=== PATIENT | male | born 1960 | race Caucasian/White ===

== ENCOUNTER 2018-10-15 15:27 | Emergency (ER) | payer OTHER, SELFPAY ==
[2018-10-15 15:29] VITALS: BP 186/106; PULSE 79; RESP 20; TEMP 37.1; O2SAT 98
--- NOTE | 2018-10-15 15:37 | DI.RAD.S_ITS ---
PROCEDURE: XR CHEST 1V INDICATIONS: chest pain TECHNIQUE: One view of the chest was acquired. COMPARISON: [facility], , CHEST 2 VIEW, 12/28/2013, 6:33. FINDINGS: Surgical changes and devices: None. Lungs and pleura: Lungs are clear. No pleural effusions or pneumothorax. Mediastinum: Mediastinal contours appear normal. Heart size is normal. Bones and chest wall: No suspicious bony lesions. Overlying soft tissues appear unremarkable. IMPRESSION: 1. No acute cardiopulmonary disease. Dictated by: Dannie Mejias M.D. on 10/15/2018 at 15:59 Approved by: Dannie Mejias M.D. on 10/15/2018 at 16:01
[2018-10-15 16:09] VITALS: BP 169/107; PULSE 71; RESP 18; O2SAT 98
[2018-10-15 16:09] LABS: Add Manual Diff / Slide Review NO; Basophils Absolute Auto 0 /uL (0-100); Basophils Percent Auto 0.7 % (0-2); Eosinophils Absolute Auto 100 /uL (0-450); Hemoglobin 15.8 g/dL (13.5-17.5); Lymphocytes Absolute Auto 1200 /uL (1100-4500); Lymphocytes Percent Auto 21.3 % (25-40); Mean Corpuscular HGB Conc 35.1 % (30-36); Mean Corpuscular Hemoglobin 31.9 PG (26-34); Mean Corpuscular Volume 90.9 fL (80-100); Monocytes Absolute Auto 500 /uL (0-900); Neutrophils Absolute Auto 3600 /uL (1500-7000); Platelet Count 180 X10^3/uL (150-400); Red Blood Cell Count 4.95 X10^6/uL (4.5-5.9); White Blood Cell Count 5.4 X10^3/uL (4.5-11.0)
[2018-10-15 16:16] LABS: Prothrombin Time 11.6 SECONDS (10.1-12.7)
[2018-10-15 16:18] LABS: PTT Partial Thromboplastin Tim 37 SECONDS (26.4-36.2)
[2018-10-15 16:23] LABS: Alanine Aminotransferase 66 IU/L (21-72); Albumin 4.9 g/dL (3.5-5.0); Albumin Globulin Ratio 1.5 (1.0-2.8); Alkaline Phosphatase 51 U/L (38-126); Aspartate Aminotransferase 60 IU/L (17-59); BUN Creatinine Ratio 11.7 (6-22); Blood Urea Nitrogen 7 mg/dL (9-20); Carbon Dioxide 29 mmol/L (22-32); Chloride 101 mmol/L (98-107); Creatine Kinase 151 U/L (55-170); Estimated Glomerular Filt Rate > 60.0 mL/min (>60); Globulin 3.3 g/dL (1.7-4.1); Glucose 118 mg/dL (80-110); HEMOLYSIS 30 (0-50); Lipase 81 U/L (23-300); Potassium 3.4 mmol/L (3.4-5.1); Sodium 140 mmol/L (137-145); Total Protein 8.2 g/dL (6.3-8.2)
[2018-10-15 16:35] LABS: Troponin I < 0.012 ng/mL (0.01-0.034)
[2018-10-15 16:39] LABS: CKMB % Relative Index 1.1 % (1.5-5.0); Creatine Kinase MB 1.69 ng/mL (<2.37)
[2018-10-15 17:00] VITALS: BP 167/97; PULSE 75; RESP 12; O2SAT 95
--- NOTE | 2018-10-15 17:02 | ED_ITS ---
HPI - General Adult General Chief complaint: Hypertension Stated complaint: sent by [facility] blood pressure crisis Time Seen by Provider: 10/15/18 15:37 Source: patient Mode of arrival: ambulatory Limitations: no limitations History of Present Illness HPI narrative: Patient is 58-year-old gentleman with history of hypertension has been out of his blood pressure medication for the last 40 days. He states he ov rupertoll has not been feeling well he gets sweaty at times. He sometimes feels slightly dizzy. He has not passed out. No numbness tingling weakness or focal deficits. He denies chest pain or shortness of breath or shortness of breath with exertion. He overall just does not feel right. Related Data Home Medications Medication Instructions Recorded Confirmed lisinopril-hydrochlorothiazide 1 tab PO DAILY 10/15/18 10/15/18 Previous Rx's Medication Instructions Recorded lisinopril-hydrochlorothiazide 1 tab PO DAILY #60 tab 10/15/18 Allergies Allergy/AdvReac Type Severity Reaction Status Date / Time No Known Drug Allergies Allergy Verified 10/15/18 15:32 Review of Systems Review of Systems ROS Unobtainable: All systems reviewed & are unremarkable except as noted in HPI and below Constitutional Denies chills, Denies fever(s), Denies lethargy and Denies weakness Eyes Denies change in vision, Denies eye discharge, Denies irritation and Denies loss of vision ENT Ears, Nose, Mouth, and Throat: Denies change in voice, Denies neck pain and Denies sore throat Cardiovascular Denies chest pain, Reports lightheadedness and Denies dyspnea Respiratory Denies dyspnea Musculoskeletal Denies neck pain Integumentary/Breasts Denies pruritus, Denies erythema, Denies rash and Denies wounds Neurologic Denies loss of vision and Denies weakness [facility] Medical History Hypertension (Acute) Exam Initial Vital Signs Initial Vital Signs: Vital Signs Temperature 98.7 F 10/15/18 15:29 Pulse Rate 79 10/15/18 15:29 Respiratory Rate 20 10/15/18 15:29 Blood Pressure 186/106 H 10/15/18 15:29 Pulse Oximetry 98 10/15/18 15:29 GENERAL: Well-appearing, well-nourished and in no acute distress. HEENT: Head atraumatic,EOMI, pupils reactive, face symmetric, moist mucous membranes CARDIOVASCULAR: Regular rate and rhythm without murmurs, rubs or gallops. RESPIRATORY: Breath sounds equal bilaterally, no wheezes rales or rhonchi. ABDOMEN: Soft, nontender. Normoactive bowel sounds all 4 quadrants. No guarding or rebound. EXTREMITIES: Normal range of motion, no clubbing or edema. Neurovascularly intact NEUROLOGICAL: Alert and oriented x4.Normal gait and speech. Cranial nerves II t hrough XII grossly intact. Apprentice Instrument Technician strength equal bilaterally SKIN: Warm, dry, no laceration, no petechiae, no rashes or lesions. Scores NIH Stroke Scale Level of Conciousness: Alert, keenly responsive Ask month/age: Answers both questions correctly. Open/close eyes, close hand: Performs both tasks correctly Best gaze horizontal: Normal Visual gayle: No visual loss Facial palsy: Normal symetrical movement Left arm drift: No drift for full 10 sec Right arm drift: No drift for full 10 sec Left leg drift: No drift for full 10 sec Right leg drift: No drift for full 10 sec Limb ataxia: Absent Sensory on face/arms/legs: Normal, no sensory loss Best language: No aphasia, normal Dysarthria: Normal Extinction or inattention: No abnormality Total NIH Stroke scale score: 0 Course Orders Ordered: ED Orders 10/15/18 15:37 XR chest 1V Stat 10/15/18 15:39 EKG-12 Lead Stat 10/15/18 16:00 Complete Blood Count AUTO DIFF Stat Comprehensive Metabolic Panel Stat Lipase Stat Partial Thromboplastin Time Stat Prothrombin Time INR Stat Troponin & CK Cardiac Panel Stat Vital Signs - 8 hr 10/15/18 15:29 10/15/18 16:09 10/15/18 17:00 Temperature 98.7 F Pulse Rate 79 71 75 Respiratory Rate 20 18 12 Blood Pressure 186/106 H Blood Pressure [Right Arm] 169/107 H 167/97 H Pulse Oximetry 98 98 95 Medical Decision Making Lab Data Lab results reviewed: Yes I reviewed the patient's lab results. Result diagrams: 10/15/18 16:00 10/15/18 16:00 Lab Results 10/15/18 10/15/18 10/15/18 Range/Units 16:00 16:00 16:00 WBC 5.4 (4.5-11.0) X10^3/uL RBC 4.95 (4.5-5.9) X10^6/uL Hgb 15.8 (13.5-17.5) g/dL Hct 45.0 (41-53) % MCV 90.9 (80-100) fL MCH 31.9 (26-34) PG MCHC 35.1 (30-36) % RDW 13.0 (11.6-14.8) % Plt Count 180 (150-400) X10^3/uL Neut % (Auto) 67.0 (50-75) % Lymph % (Auto) 21.3 L (25-40) % [place] % (Auto) 10.0 (3-14) % Eos % (Auto) 1.0 L (2-4) % Baso % (Auto) 0.7 (0-2) % Neut # (Auto) 3600 (7751-6893) /uL Lymph # (Auto) 1200 (9248-1316) /uL [place] # (Auto) 500 (0-900) /uL Eos # (Auto) 100 (0-450) /uL Baso # (Auto) 0 (0-100) /uL PT 11.6 (10.1-12.7) SECONDS INR 1.0 (0.9-1.3) APTT 37 H (26.4-36.2) SECONDS Sodium 140 (137-145) mmol/L Potassium 3.4 (3.4-5.1) mmol/L Chloride 101 (98-107) mmol/L Carbon Dioxide 29 (22-32) mmol/L BUN 7 L (9-20) mg/dL Creatinine 0.60 L (0.66-1.25) mg/dL Estimated GFR > 60.0 (>60) mL/min BUN/Creatinine Ratio 11.7 (6-22) Glucose 118 H (80-110) mg/dL Calcium 10.0 (8.4-10.2) mg/dL Total Bilirubin 1.0 (0.2-1.3) mg/dL AST 60 H (17-59) IU/L ALT 66 (21-72) IU/L Alkaline Phosphatase 51 (38-126) U/L Total Creatine Kinase 151 (55-170) U/L CK-MB (CK-2) 1.69 (<2.37) ng/mL CK-MB (CK-2) Rel Index 1.1 L (1.5-5.0) % Troponin I < 0.012 (0.01-0.034) ng/mL Total Protein 8.2 (6.3-8.2) g/dL Albumin 4.9 (3.5-5.0) g/dL Globulin 3.3 (1.7-4.1) g/dL Albumin/Globulin Ratio 1.5 (1.0-2.8) Lipase 81 (23-300) U/L Imaging Data Chest x-ray: Radiologist's impression: PROCEDURE: XR CHEST 1V INDICATIONS: chest pain TECHNIQUE: One view of the chest was acquired. COMPARISON: [facility], , CHEST 2 VIEW, 12/28/2013, 6:33. FINDINGS: Surgical changes and devices: None. Lungs and pleura: Lungs are clear. No pleural effusions or pneumothorax. Mediastinum: Mediastinal contours appear normal. Heart size is normal. Bones and chest wall: No suspicious bony lesions. Overlying soft tissues appear unremarkable. IMPRESSION: 1. No acute cardiopulmonary disease. Dictated by: Dannie Mejias M.D. on 10/15/2018 at 15:59 ECG Data Attestation: I personally reviewed and interpreted this ECG as follows: Prior ECG tracings: not available for review Interpretation: Normal sinus rhythm rate 76 p.r[address] interval [address] changes no T-wave inversions no priors to compare Q-wave noted in lead 3 nonpathologic MDM Narrative Medical decision making narrative: Patient blood pressure has decreased without any intervention. He likely just needs to be placed back on his regular blood pressure meds. He says he is having trouble getting into a PCP. He is given information to help get into a PCP. I have agreed to write him for 2 months of blood pressure medication with the understanding that he needs to make phone felix ls. He is also requesting tomorrow off work. Discharge Plan Departure Patient Disposition: Home Clinical Impression: Hypertension Qualifiers: Hypertension type: essential hypertension Qualified Code(s): I10 - Essential (primary) hypertension Discharge Date/Time: 10/15/18 17:19 Interventions: ED Discharge Assessment Last Done: 10/15/18 17:19 Instructions: DI for High Blood Pressure Activity Restrictions/Additional Instructions: *You have been diagnosed with hypertension *What to do: You need to take her blood pressure medication *Continue to take medications as directed 1 pill once daily hydrochlorothiazide and lisinopril *Follow up with your primary care provider in 2-3 days *Return to ER if you should have chest pain shortness of breath dizziness lightheadedness weakness or any new, worsening or concerning symptoms Prescriptions: New lisinopril-hydrochlorothiazide 20-25 mg tablet 1 tab PO DAILY Qty: 60 RF: 0 No Action lisinopril-hydrochlorothiazide 20-25 mg Tablet 1 tab PO DAILY RF: 0 Stand Alone Forms: Work Release Note
== END 2018-10-15 17:19 | disposition home or self-care (01) ==
PROVIDERS: Nurse Practitioner Family; Emergency Provider Emergency Medicine
DX: I10 Essential (primary) hypertension (principal); R07.9 Chest pain, unspecified
CPT/HCPCS: 36591; 71045; 80053; 82550; 82553; 83690; 84484; 85025; 85610; 85730; 93005; 99283; 99285

== ENCOUNTER → 2019-03-04 09:51 | Outpatient (CLI) | payer OTHER, SELFPAY ==
[2019-03-04 10:40] LABS: Hemoglobin 16.3 g/dL (13.5-17.5); Mean Corpuscular HGB Conc 35.5 % (30-36); Mean Corpuscular Hemoglobin 32.6 PG (26-34); Platelet Count 214 X10^3/uL (150-400); Red Blood Cell Count 5.01 X10^6/uL (4.5-5.9); Red Cell Distribution Width 13.3 % (11.6-14.8); White Blood Cell Count 6.5 X10^3/uL (4.5-11.0)
[2019-03-04 10:44] LABS: Appearance Urine UA CLEAR; Bilirubin Urine UA NEGATIVE (NEGATIVE); Color Urine UA YELLOW; Glucose Urine UA NEGATIVE (Negative); Ketones Urine UA TRACE (NEGATIVE); Leukocyte Esterase Urine UA NEGATIVE (NEGATIVE); Nitrite Urine UA NEGATIVE (Negative); Occult Blood Urine UA NEGATIVE (Negative); Protein Urine UA 1+ (Negative); Urobilinogen Urine UA 0.2 E.U./dL (0.2)
[2019-03-04 11:13] LABS: Alanine Aminotransferase 178 IU/L (<50); Albumin 5.4 g/dL (3.5-5.0); Albumin Globulin Ratio 1.8 (1.0-2.8); Alkaline Phosphatase 56 U/L (38-126); Aspartate Aminotransferase 146 IU/L (17-59); Bilirubin Total 0.8 mg/dL (0.2-1.3); Blood Urea Nitrogen 7 mg/dL (9-20); Calcium 10.6 mg/dL (8.4-10.2); Carbon Dioxide 30 mmol/L (22-32); Chloride 98 mmol/L (98-107); Estimated Glomerular Filt Rate > 60.0 mL/min (>60); Glucose 118 mg/dL (80-110); HDL Cholesterol 74 mg/dL (40-60); HEMOLYSIS < 15 (0-50); Potassium 3.9 mmol/L (3.4-5.1); Sodium 141 mmol/L (137-145); Total Protein 8.4 g/dL (6.3-8.2); Triglycerides 279 mg/dL (35-150)
[2019-03-04 11:21] LABS: LDL Cholesterol Calculated 241 mg/dL (<100)
[2019-03-04 11:22] LABS: Cholesterol 371 mg/dL (140-199)
[2019-03-04 11:25] LABS: Bacteria Urine Occasional (0-1); Hyaline Casts Urine 5-10/LPF; Mucus Urine 1+ (Negative); RBC Urine 0-1/HPF (0-5/HPF); WBC Urine 0-1/HPF (0-5/HPF)
[2019-03-04 11:36] LABS: Creatinine Urine Random 204.4 mg/dL
[2019-03-04 11:40] LABS: Prostate Specific Antigen Scrn 1.08 ng/mL (0.1-4.0)
[2019-03-04 11:42] LABS: Microalbumi Creatinin Ratio Ur 51.3 ug/mg CR (<30); Microalbumin Urine Random 10.5 mg/dL (0-1.6)
== END ==
PROVIDERS: PCP Nurse Practitioner Family; Visit Provider Nurse Practitioner Family
DX: Z00.00 Encounter for general adult medical examination without abnormal findings (principal); Z12.5 Encounter for screening for malignant neoplasm of prostate; I10 Essential (primary) hypertension; Z13.6 Encounter for screening for cardiovascular disorders
CPT/HCPCS: 36415; 80053; 80061; 81001; 82043; 82570; 85027; G0103

== ENCOUNTER → 2020-03-23 15:34 | Outpatient (CLI) | payer SELFPAY ==
[2020-03-23 16:18] LABS: Mean Corpuscular HGB Conc 34.2 % (30-36); Mean Corpuscular Hemoglobin 31.7 PG (26-34); Mean Corpuscular Volume 92.6 fL (80-100); Platelet Count 183 X10^3/uL (150-400); Red Blood Cell Count 4.75 X10^6/uL (4.5-5.9); Red Cell Distribution Width 12.5 % (11.6-14.8); White Blood Cell Count 7.3 X10^3/uL (4.5-11.0)
[2020-03-23 16:32] LABS: Alanine Aminotransferase 168 IU/L (<50); Albumin 4.9 g/dL (3.5-5.0); Albumin Globulin Ratio 1.7 (1.0-2.8); Alkaline Phosphatase 62 U/L (38-126); Aspartate Aminotransferase 164 IU/L (17-59); BUN Creatinine Ratio 13.1 (6-22); Bilirubin Total 0.8 mg/dL (0.2-1.3); Blood Urea Nitrogen 8 mg/dL (9-20); Calcium 10.1 mg/dL (8.4-10.2); Carbon Dioxide 32 mmol/L (22-32); Chloride 97 mmol/L (98-107); Cholesterol 300 mg/dL (140-199); Estimated Glomerular Filt Rate > 60.0 mL/min (>60); Globulin 2.9 g/dL (1.7-4.1); Glucose 93 mg/dL (80-110); HDL Cholesterol 81 mg/dL (40-60); HEMOLYSIS < 15 (0-50); LDL Cholesterol Calculated 195 mg/dL (<100); Potassium 3.7 mmol/L (3.4-5.1); Sodium 135 mmol/L (137-145); Total Protein 7.8 g/dL (6.3-8.2); Triglycerides 118 mg/dL (35-150)
== END ==
PROVIDERS: PCP Nurse Practitioner Family; Referring Provider Nurse Practitioner Family; Visit Provider Nurse Practitioner Family
DX: I10 Essential (primary) hypertension (principal); E78.2 Mixed hyperlipidemia
CPT/HCPCS: 36415; 80053; 80061; 85027

== ENCOUNTER → 2020-07-28 07:59 | Outpatient (CLI) | payer OTHER, SELFPAY ==
[2020-07-28 08:47] LABS: INR 1.1 (0.9-1.3); Prothrombin Time 11.7 SECONDS (10.1-12.7)
[2020-07-28 09:29] LABS: Alanine Aminotransferase 128 IU/L (<50); Albumin 4.6 g/dL (3.5-5.0); Albumin Globulin Ratio 1.6 (1.0-2.8); Alkaline Phosphatase 73 U/L (38-126); Aspartate Aminotransferase 145 IU/L (17-59); Bilirubin Total 0.5 mg/dL (0.2-1.3); Bilirubin Unconjugated 0.4 mg/dL (0.0-1.1); Globulin 2.9 g/dL (1.7-4.1); HEMOLYSIS < 15 (0-50); Total Protein 7.5 g/dL (6.3-8.2)
[2020-07-29 05:18] LABS: HBsAg Screen Negative (Negative); Hepatitis A Antibody IgM Negative (Negative); Hepatitis B Core Antibody IgM Negative (Negative); Hepatitis C Antibody <0.1 s/co ratio (0.0-0.9)
[2020-07-30 13:48] LABS: Smooth Muscle Antibody 8 Units (0-19)
[2020-08-01 14:36] LABS: Vitamin B1 94.4 nmol/L (66.5-200.0)
== END ==
PROVIDERS: PCP Nurse Practitioner Family; Referring Provider Nurse Practitioner Family; Visit Provider Nurse Practitioner Family
DX: F10.10 Alcohol abuse, uncomplicated (principal); R74.8 Abnormal levels of other serum enzymes
CPT/HCPCS: 36415; 80074; 80076; 83516; 84425; 85610

== ENCOUNTER → 2020-08-04 11:23 | Outpatient (CLI) | payer OTHER, SELFPAY ==
--- NOTE | 2020-08-04 11:31 | DI.RAD.S_ITS ---
PROCEDURE: XR LUMBAR SPINE 2-3V INDICATIONS: back pain TECHNIQUE: 3 views of the lumbar spine were acquired. COMPARISON: None. FINDINGS: Bones: 5 [id number] vertebrae are present. There is normal bony alignment. No vertebral body compression fractures. No suspicious bony lesions. Soft tissues: Overlying bowel gas pattern is normal. No suspicious soft tissue calcifications. IMPRESSION: No compression fracture found. There is a [id number] degree of degenerative disc disease and facet osteoarthritis at L5-S1, where mild spinal and foraminal stenosis may be present and no subluxation is seen. Dictated by: Karl Ford M.D. on 08/04/2020 at 11:57 Approved by: Karl Ford M.D. on 08/04/2020 at 11:58
== END ==
LOC: LAB 11:24 → RAD 11:31
PROVIDERS: PCP Nurse Practitioner Family; Referring Provider Nurse Practitioner Family; Visit Provider Nurse Practitioner Family
DX: M54.5 Low back pain (principal); M51.37 Other intervertebral disc degeneration, lumbosacral region; M47.817 Spondylosis without myelopathy or radiculopathy, lumbosacral region
CPT/HCPCS: 72100

== ENCOUNTER → 2020-08-06 09:01 | Outpatient (CLI) | payer OTHER, SELFPAY ==
[2020-08-06] MEDS: COVID-19 VACC, Ad26(JANSSEN)/PF 0.5 ML IM (09:06)
== END ==
PROVIDERS: PCP Nurse Practitioner Family; Visit Provider Internal Medicine
DX: Z23 Encounter for immunization (principal)
CPT/HCPCS: 0031A; 91303

== ENCOUNTER → 2020-08-10 12:51 | Outpatient (CLI) | payer OTHER, SELFPAY ==
[2020-08-10 13:21] LABS: Appearance Urine UA CLEAR; Bilirubin Urine UA NEGATIVE (NEGATIVE); Color Urine UA YELLOW; Glucose Urine UA TRACE g/dL (Negative); Ketones Urine UA TRACE (NEGATIVE); Leukocyte Esterase Urine UA NEGATIVE (NEGATIVE); Nitrite Urine UA NEGATIVE (Negative); Occult Blood Urine UA NEGATIVE (Negative); Protein Urine UA NEGATIVE (Negative); Specific Gravity Urine UA 1.015 (1.000-1.035); Urobilinogen Urine UA 0.2 E.U./dL (0.2)
== END ==
PROVIDERS: PCP Nurse Practitioner Family; Referring Provider Nurse Practitioner Family; Visit Provider Nurse Practitioner Family
DX: R39.9 Unspecified symptoms and signs involving the genitourinary system (principal)
CPT/HCPCS: 81003

== ENCOUNTER → 2020-08-12 08:57 | Outpatient (CLI) | payer OTHER, SELFPAY ==
--- NOTE | 2020-08-12 08:58 | DI.US.S_ITS ---
PROCEDURE: US ABDOMEN LIMITED INDICATIONS: ELEVATED LIVER ENZYMES AND HISTORY OF ALCOHOL ABUSE. TECHNIQUE: Real-time focused scanning was performed of the abdomen, with image documentation. COMPARISON: [facility], CT, CHEST/ABDOMEN WITH CONTRAST, 12/27/2013, 3:29. FINDINGS: The liver demonstrates normal size. The liver demonstrates generalized moderately increased echogenicity. This decreases ultrasound sensitivity for detection of hepatic masses. No findings of gallstones or sludge are seen. The gallbladder wall is not thickened, measuring 3 mm or less. No specific pericholecystic fluid is seen. The sonographic Hardwick sign is negative. The biliary tree is not well seen. No significant pancreatic abnormality is seen on these images. IMPRESSION: Increased liver echogenicity. Differential diagnosis includes fatty infiltration and cirrhosis. Dictated by: Ulices Dickerson M.D. on 08/12/2020 at 9:06 Approved by: Ulices Dickerson M.D. on 08/12/2020 at 9:08
== END ==
PROVIDERS: PCP Nurse Practitioner Family; Referring Provider Nurse Practitioner Family; Visit Provider Nurse Practitioner Family
DX: R74.8 Abnormal levels of other serum enzymes (principal); F10.10 Alcohol abuse, uncomplicated
CPT/HCPCS: 76705

== ENCOUNTER → 2020-08-21 09:11 | Outpatient (CLI) | payer OTHER, SELFPAY ==
[2020-08-21 09:58] LABS: RBC Urine None Seen (0-5/HPF)
[2020-08-21 10:03] LABS: Appearance Urine UA CLEAR; Bilirubin Urine UA NEGATIVE (NEGATIVE); Color Urine UA YELLOW; Glucose Urine UA NEGATIVE (Negative); Ketones Urine UA 1+ (NEGATIVE); Leukocyte Esterase Urine UA NEGATIVE (NEGATIVE); Nitrite Urine UA NEGATIVE (Negative); Occult Blood Urine UA NEGATIVE (Negative); Protein Urine UA 1+ (Negative); Urobilinogen Urine UA 0.2 E.U./dL (0.2); pH Urine UA 5.5 (4.5-8.0)
[2020-08-21 10:15] LABS: WBC Urine 0-1/HPF (0-5/HPF)
[2020-08-21 10:16] LABS: Bacteria Urine Occasional (0-1); Culture Indicated Urine Cult Not Indicated; Mucus Urine 3+ (Negative)
[2020-08-21 10:19] LABS: Prothrombin Time 11.5 SECONDS (10.1-12.7)
[2020-08-21 10:22] LABS: PTT Partial Thromboplastin Tim 37 SECONDS (26.4-36.2)
[2020-08-21 10:24] LABS: Add Manual Diff / Slide Review NO; Basophils Absolute Auto 0 /uL (0-100); Basophils Percent Auto 0.9 % (0-2); Eosinophils Absolute Auto 200 /uL (0-450); Hematocrit 44.7 % (41-53); Hemoglobin 15.4 g/dL (13.5-17.5); Lymphocytes Absolute Auto 1600 /uL (1100-4500); Mean Corpuscular HGB Conc 34.4 % (30-36); Mean Corpuscular Hemoglobin 31.9 PG (26-34); Mean Corpuscular Volume 92.7 fL (80-100); Monocytes Absolute Auto 400 /uL (0-900); Monocytes Percent Auto 7.2 % (3-14); Neutrophils Absolute Auto 3000 /uL (1500-7000); Neutrophils Percent Auto 57.9 % (50-75); Platelet Count 190 X10^3/uL (150-400); Red Blood Cell Count 4.82 X10^6/uL (4.5-5.9); Red Cell Distribution Width 12.8 % (11.6-14.8); White Blood Cell Count 5.1 X10^3/uL (4.5-11.0)
[2020-08-21 10:42] LABS: Alanine Aminotransferase 161 IU/L (<50); Albumin 4.8 g/dL (3.5-5.0); Albumin Globulin Ratio 1.4 (1.0-2.8); Alkaline Phosphatase 78 U/L (38-126); Aspartate Aminotransferase 171 IU/L (17-59); BUN Creatinine Ratio 8.5 (6-22); Bilirubin Total 0.6 mg/dL (0.2-1.3); Bilirubin Unconjugated 0.3 mg/dL (0.0-1.1); Blood Urea Nitrogen 5 mg/dL (9-20); Calcium 9.9 mg/dL (8.4-10.2); Carbon Dioxide 22 mmol/L (22-32); Chloride 103 mmol/L (98-107); Estimated Glomerular Filt Rate > 60.0 mL/min (>60); Globulin 3.4 g/dL (1.7-4.1); Glucose 120 mg/dL (80-110); HEMOLYSIS < 15 (0-50); Potassium 3.9 mmol/L (3.4-5.1); Sodium 139 mmol/L (137-145); Total Protein 8.2 g/dL (6.3-8.2)
== END ==
PROVIDERS: PCP Nurse Practitioner Family; Referring Provider Nurse Practitioner Family; Visit Provider Nurse Practitioner Family
DX: R93.2 Abnormal findings on diagnostic imaging of liver and biliary tract (principal); R74.8 Abnormal levels of other serum enzymes; F10.10 Alcohol abuse, uncomplicated; R82.90 Unspecified abnormal findings in urine
CPT/HCPCS: 36415; 80053; 80076; 81001; 85025; 85610; 85730

== ENCOUNTER 2020-08-23 02:48 | Emergency (ER) | payer OTHER, SELFPAY ==
[2020-08-23 02:50] VITALS: BP 118/80; PULSE 118; RESP 20; TEMP 35.9; O2SAT 96; BMI 25.8
--- NOTE | 2020-08-23 02:58 | ED_ITS ---
HPI - General Adult General Chief complaint: Nausea/Vomiting/Diarrhea Stated complaint: throwing up blood since yesterday Time Seen by Provider: 08/23/20 02:53 History of Present Illness HPI narrative: Patient is a 60-year-old male. Has a known history with alcohol use. Is here for evaluation of multiple episodes of vomiting over the past couple days. He does feel there is blood in the vomit. He is not on anticoagulation. Has not having any abdominal discomfort. No change in his stool. No urinary symptoms. Has never had anything like this in the past. Related Data Home Medications Medication Instructions Recorded Confirmed ondansetron 4 mg disintegrating 4 mg PO Q4H PRN 08/23/20 08/23/20 tablet Previous Rx's Medication Instructions Recorded lisinopril 20 1 tab PO DAILY #30 tab 08/20/20 mg-hydrochlorothiazide 25 mg tablet Allergies Allergy/AdvReac Type Severity Reaction Status Date / Time No Known Drug Allergies Allergy Verified 08/23/20 10:28 Review of Systems Constitutional Constitutional: Denies headache(s) ENT Ears, Nose, Mouth, and Throat: Denies headache(s) Cardiovascular Cardiovascular: Denies chest pain and Denies dyspnea Respiratory Respiratory: Denies dyspnea Gastrointestinal Gastrointestinal: Denies change in bowel habits, Reports nausea and Reports vomiting Musculoskeletal Musculoskeletal: Reports system reviewed and no additional complaints, except as documented Neurologic Neurologic: Denies headache(s) Psychiatric Psychiatric: Reports system reviewed and no additional complaints, except as documented Hematologic/Lymphatic On Anticoagulants: No Allergic/Immunologic Allergic/Immunologic: Reports system reviewed and no additional complaints, except as documented Patient History Medical History Alcohol abuse Cataracts, bilateral Chicken pox Elevated liver enzymes Fractures Highly echogenic liver on ultrasound (07/2020) Hypertension Low back pain Measles Mixed hyperlipidemia Pneumothorax (~2013) Rectal bleeding (02/18/19) Shoulder pain Varicocele (2001) Vision disorder Family History Father Cancer Social History Smoking Status: Never smoker second hand exposure: Yes alcohol intake: current substance use type: does not use Smoking Status: Never smoker alcohol intake frequency: 3 or more drinks per day Exam Initial Vital Signs Initial Vital Signs: Vital Signs Temperature 96.7 F L 08/23/20 02:50 Pulse Rate 118 H 08/23/20 02:50 Respiratory Rate 20 08/23/20 02:50 Blood Pressure 118/80 08/23/20 02:50 Pulse Oximetry 96 08/23/20 02:50 Const General: cooperative and comfortable HENTN Head: normal to inspection and normocephalic Resp Effort & Inspection: normal respiratory effort Auscultation: clear to auscultation bilaterally Cardio Rate: regular rate Rhythm: regular rhythm GI Inspection: normal to inspection Palpation: soft Skin General: no rashes or lesions noted Neuro General: patient alert and patient awake Extrem General: normal to inspection and capillary refill normal Psych Appearance: grossly normal Course Orders Ordered: Discontinued Medications Ondansetron HCl (Ondansetron 4 Mg/2 Ml Inj) 4 mg IV NOW ONE Stop: 08/23/20 04:02 Last Admin: 08/23/20 06:40 Dose: Not Given Documented by: KEVIN Pantoprazole Sodium (Pantoprazole 40 Mg Vial) 40 mg IV NOW ONE Stop: 08/23/20 04:02 Medical Decision Making Lab Data Result diagrams: 08/23/20 03:15 08/23/20 03:15 Labs: Lab Results 08/23/20 08/23/20 Range/Units 03:15 03:15 WBC 10.0 D (4.5-11.0) X10^3/uL RBC 4.83 (4.5-5.9) X10^6/uL Hgb 15.5 (13.5-17.5) g/dL Hct 44.6 (41-53) % MCV 92.4 (80-100) fL MCH 32.1 (26-34) PG MCHC 34.8 (30-36) % RDW 12.7 (11.6-14.8) % Plt Count 202 (150-400) X10^3/uL Neut % (Auto) 73.3 (50-75) % Lymph % (Auto) 16.5 L (25-40) % [place] % (Auto) 9.2 (3-14) % Eos % (Auto) 0.3 L (2-4) % Baso % (Auto) 0.7 (0-2) % Neut # (Auto) 7300 H (5928-5707) /uL Lymph # (Auto) 1600 (3383-4484) /uL [place] # (Auto) 900 (0-900) /uL Eos # (Auto) 0 (0-450) /uL Baso # (Auto) 100 (0-100) /uL Sodium 136 L (137-145) mmol/L Potassium 3.4 (3.4-5.1) mmol/L Chloride 93 L (98-107) mmol/L Carbon Dioxide 28 (22-32) mmol/L BUN 20 (9-20) mg/dL Creatinine 0.62 L (0.66-1.25) mg/dL Estimated GFR > 60.0 (>60) mL/min BUN/Creatinine Ratio 32.3 H (6-22) Glucose 183 H (80-110) mg/dL Calcium 11.2 H (8.4-10.2) mg/dL Total Bilirubin 1.7 H (0.2-1.3) mg/dL AST 141 H (17-59) IU/L ALT 131 H (<50) IU/L Alkaline Phosphatase 73 (38-126) U/L Total Protein 8.7 H (6.3-8.2) g/dL Albumin 5.1 H (3.5-5.0) g/dL Globulin 3.6 (1.7-4.1) g/dL Albumin/Globulin Ratio 1.4 (1.0-2.8) Lipase 140 (23-300) U/L Ethyl Alcohol < 10 ( - 10) mg/dL ECG Data Interpretation: Sinus rhythm Ventricular rate 97 Normal axis Normal QRS Normal QTC No ST T wave changes Critical Care Time Critical Care Time Attestation: Patient's vital signs and lab work and EKG are unremarkable. I do suspect given his history of alcohol abuse that he most likely has a gastritis or potentially even a upper GI bleed. He has not described any changes in his stool. Given his presentation today I feel that sending home with a PPI and instructions to contact General surgery to have a upper endoscopy and a colonoscopy. I do not feel the patient needs admitted the hospital based on his presentation today however he was given strict return precautions. He and his expressed understanding and agreement. Discharge Plan Departure Patient Disposition: Home Clinical Impression: Acute upper GI bleed, Gastritis Prescriptions: No Action lisinopril-hydrochlorothiazide 20-25 mg tablet 1 tab PO DAILY Qty: 30 RF: 0 ondansetron [Zofran ODT] 4 mg Tablet,Disintegrating 4 mg PO Q4H PRN (Reason: nausea/vomiting) RF: 0 Referrals: Edyta Schultz ARNP [Primary Care Provider] -
[2020-08-23 03:22] LABS: Add Manual Diff / Slide Review NO; Basophils Absolute Auto 100 /uL (0-100); Basophils Percent Auto 0.7 % (0-2); Eosinophils Absolute Auto 0 /uL (0-450); Eosinophils Percent Auto 0.3 % (2-4); Hematocrit 44.6 % (41-53); Hemoglobin 15.5 g/dL (13.5-17.5); Lymphocytes Absolute Auto 1600 /uL (1100-4500); Lymphocytes Percent Auto 16.5 % (25-40); Mean Corpuscular HGB Conc 34.8 % (30-36); Mean Corpuscular Hemoglobin 32.1 PG (26-34); Mean Corpuscular Volume 92.4 fL (80-100); Monocytes Absolute Auto 900 /uL (0-900); Monocytes Percent Auto 9.2 % (3-14); Neutrophils Absolute Auto 7300 /uL (1500-7000); Neutrophils Percent Auto 73.3 % (50-75); Platelet Count 202 X10^3/uL (150-400); Red Blood Cell Count 4.83 X10^6/uL (4.5-5.9); Red Cell Distribution Width 12.7 % (11.6-14.8)
[2020-08-23 03:31] LABS: Alanine Aminotransferase 131 IU/L (<50); Albumin 5.1 g/dL (3.5-5.0); Albumin Globulin Ratio 1.4 (1.0-2.8); Alkaline Phosphatase 73 U/L (38-126); Aspartate Aminotransferase 141 IU/L (17-59); BUN Creatinine Ratio 32.3 (6-22); Bilirubin Total 1.7 mg/dL (0.2-1.3); Blood Urea Nitrogen 20 mg/dL (9-20); Calcium 11.2 mg/dL (8.4-10.2); Carbon Dioxide 28 mmol/L (22-32); Chloride 93 mmol/L (98-107); Estimated Glomerular Filt Rate > 60.0 mL/min (>60); Ethanol (ETOH) < 10 mg/dL; Globulin 3.6 g/dL (1.7-4.1); Glucose 183 mg/dL (80-110); HEMOLYSIS < 15 (0-50); Lipase 140 U/L (23-300); Potassium 3.4 mmol/L (3.4-5.1); Sodium 136 mmol/L (137-145); Total Protein 8.7 g/dL (6.3-8.2)
[2020-08-23 04:30] VITALS: BP 142/92; PULSE 91; RESP 20; O2SAT 98
--- NOTE | 2020-08-23 07:07 | PC.NURSE ---
Medications were given as ordered but due to [facility] being down,they were documented on paper.
== END 2020-08-23 04:30 | disposition home or self-care (01) ==
PROVIDERS: Emergency Provider Emergency Medicine; PCP Nurse Practitioner Family
DX: K29.71 Gastritis, unspecified, with bleeding (principal); F10.21 Alcohol dependence, in remission
CPT/HCPCS: 36415; 80053; 80320; 83690; 85025; 93005

== ENCOUNTER 2020-08-23 09:19 | Emergency (ER) | payer OTHER, SELFPAY ==
[2020-08-23] VITALS (12 sets, daily range): BP systolic 109–136; BP diastolic 79–90; PULSE 88–110; RESP 12–31; TEMP 35.9; O2SAT 88–99; BMI 24.5
--- NOTE | 2020-08-23 09:34 | ED.GIBLEED ---
HPI - GI Bleed General Chief complaint: GI Bleed Stated complaint: VOMITING BLOOD Time Seen by Provider: 08/23/20 09:28 Source: patient Mode of arrival: Ambulatory History of Present Illness HPI Narrative: patient is a 60-year-old male history of alcoholism and hypertension presenting today with hematemesis. He was seen and evaluated last night with coffee ground emesis. Symptoms resolved he was discharged home. This morning he got up felt nauseous and vomited 3 times is loose to couple of bright red blood. He continued to have 1 bout of bright red blood in the emergency department small amount, about a quarter cup. he states that he is an alcoholic but over the last 4 days he has been decreasing his alcohol use. He tried to drink alcohol last night but threw it up. He feels a bit shaky. This morning he also felt dizzy and lightheaded. He no longer is feeling dizzy and lightheaded. Slightly tachycardic with heart rate of 110 but blood pressure 136/81. he apparently has also been taking naproxen 500 twice a day for ongoing back pain and sciatic pain. Related Data Home Medications Medication Instructions Recorded Confirmed ondansetron 4 mg disintegrating 4 mg PO Q4H PRN 08/23/20 08/23/20 tablet Previous Rx's Medication Instructions Recorded lisinopril 20 1 tab PO DAILY #30 tab 08/20/20 mg-hydrochlorothiazide 25 mg tablet Allergies Allergy/AdvReac Type Severity Reaction Status Date / Time No Known Drug Allergies Allergy Verified 08/23/20 10:28 Review of Systems Review of Systems ROS Unobtainable: All systems reviewed & are unremarkable except as noted in HPI and below Constitutional Constitutional: Reports body ache(s), Denies fatigue, Denies fever(s), Denies headache(s) and Denies night sweats ENT Ears, Nose, Mouth, and Throat: Denies headache(s), Denies epistaxis, Denies neck pain and Denies sore throat Cardiovascular Cardiovascular: Denies chest pain, Denies irregular heart rhythm and Denies dyspnea on exertion Respiratory Respiratory: Denies chest congestion and Denies dyspnea on exertion Gastrointestinal Gastrointestinal: Reports as per HPI, Denies abdominal pain, Denies melena, Denies change in stool character, Reports coffee ground emesis, Reports nausea, Reports vomiting and Reports hematemesis Genitourinary Genitourinary: Denies urinary frequency and Denies urinary hesitancy Musculoskeletal Musculoskeletal: Denies back pain and Denies neck pain Integumentary/Breasts Skin/Breast: Denies rash, Denies skin pain and Denies jaundice Neurologic Neurologic: Denies abnormal speech, Denies confusion, Denies headache(s) and Reports tremor(s) Psychiatric Psychiatric: Denies confusion, Denies depression and Denies irritability Endocrine Endocrine: Denies fatigue Patient History Medical History Alcohol abuse Cataracts, bilateral Chicken pox Elevated liver enzymes Fractures Highly echogenic liver on ultrasound (07/2020) Hypertension Low back pain Measles Mixed hyperlipidemia Pneumothorax (~2013) Rectal bleeding (02/18/19) Shoulder pain Varicocele (2001) Vision disorder Family History Father Cancer Social History Smoking Status: Never smoker second hand exposure: Yes alcohol intake: current substance use type: does not use Smoking Status: Never smoker alcohol intake frequency: 3 or more drinks per day Exam Initial Vital Signs Initial Vital Signs: Vital Signs Temperature 96.7 F L 08/23/20 09:31 Pulse Rate 110 H 08/23/20 09:31 Respiratory Rate 12 08/23/20 09:31 Blood Pressure 136/81 08/23/20 09:31 Pulse Oximetry 99 08/23/20 09:31 GENERAL: Alert 60-year-old male slightly shaking HEENT: Head atraumatic,EOMI, pupils reactive, face symmetric, [moist] mucous membranes CARDIOVASCULAR: Regular rate and rhythm without murmurs, rubs or gallops. RESPIRATORY: Breath sounds equal bilaterally, no wheezes rales or rhonchi. ABDOMEN: Soft, non tender negative Hardwick sign EXTREMITIES: Normal range of motion, no clubbing or edema. Neurovascularly intact NEUROLOGICAL: Alert and oriented x4.Normal gait and speech. mild tremors at rest SKIN: Warm, dry, no laceration, no petechiae, no rashes or lesions. Course Orders Ordered: ED Orders 08/23/20 10:37 CT abdomen pelvis w con Stat Discontinued Medications Octreotide Acetate 500 mcg/ (Sodium Chloride) 101 mls @ 10.1 mls/hr IV CONT SANJEEV; Protocol Last Infusion: 08/23/20 14:46 Dose: 0 mcg/hr, 0 mls/hr Documented by: Infusion: 08/23/20 14:46 Dose: 50 mcg/hr, 10.1 mls/hr Documented by: Infusion: 08/23/20 14:46 Dose: 50 mcg/hr, 10.1 mls/hr Documented by: Infusion: 08/23/20 14:46 Dose: 0 mcg/hr, 0 mls/hr Documented by: Admin: 08/23/20 10:05 Dose: 50 mcg/hr, 10.1 mls/hr Documented by: JOSE A Lorazepam (Lorazepam 2 Mg/Ml Inj) 1 mg IV NOW ONE Stop: 08/23/20 09:58 Last Admin: 08/23/20 10:05 Dose: 1 mg Documented by: JOSE A Octreotide Acetate (Octreotide 100 Mcg/Ml Vial) 50 mcg IV NOW ONE Stop: 08/23/20 09:44 Last Admin: 08/23/20 10:05 Dose: 50 mcg Documented by: JOSE A Ondansetron HCl (Ondansetron 4 Mg/2 Ml Inj) 4 mg IV NOW ONE Stop: 08/23/20 09:37 Last Admin: 08/23/20 09:43 Dose: 4 mg Documented by: JOSE A Pantoprazole Sodium (Pantoprazole 40 Mg Vial) 40 mg IV NOW ONE Stop: 08/23/20 09:30 Last Admin: 08/23/20 09:43 Dose: 40 mg Documented by: JOSE A Consultations Consultation #1: 10: [address] Bailon, updated patient's symptoms test results and my concern for variceal bleeding and cirrhosis. She would like to wait for CT before excepting patient. 11:15- physician is re-contacted updated on CT results which do confirm cirrhosis and variceal bleed. At this time recommends octreotide drip and Protonix drip unfortunately it is not available which I have explained to her. Consultation #2: 11:00 Dr. Pitts, General surgery- recommends transfer for presumed variceal bleeding. unable to repair variceal bleeding at this hospital Consultation #3: Dr. Ferrara at [facility] happily accepts patient. Vital Signs Vital signs: Vital Signs - 8 hr 08/23/20 11:30 08/23/20 12:08 08/23/20 12:15 Pulse Rate 93 H 90 97 H Respiratory Rate 22 17 21 Blood Pressure 113/86 109/79 120/90 Pulse Oximetry 98 98 98 08/23/20 13:00 08/23/20 13:30 08/23/20 14:30 Pulse Rate 97 H 98 H 92 H Respiratory Rate 18 16 18 Blood Pressure 113/82 116/87 110/81 Pulse Oximetry 98 98 99 MDM - GI Bleed Lab Data Attestation: I reviewed the patient's lab results. Result diagrams: 08/23/20 09:25 08/23/20 09:25 Labs: Lab Results 08/23/20 08/23/20 08/23/20 Range/Units 09:25 09:25 09:25 WBC 12.0 H (4.5-11.0) X10^3/uL RBC 4.49 L (4.5-5.9) X10^6/uL Hgb 14.4 (13.5-17.5) g/dL Hct 41.5 (41-53) % MCV 92.3 (80-100) fL MCH 32.1 (26-34) PG MCHC 34.7 (30-36) % RDW 12.9 (11.6-14.8) % Plt Count 229 (150-400) X10^3/uL Neut % (Auto) 75.1 H (50-75) % Lymph % (Auto) 14.7 L (25-40) % [place] % (Auto) 9.5 (3-14) % Eos % (Auto) 0.1 L (2-4) % Baso % (Auto) 0.6 (0-2) % Neut # (Auto) 9000 H (3772-2082) /uL Lymph # (Auto) 1800 (3731-3676) /uL [place] # (Auto) 1100 H (0-900) /uL Eos # (Auto) 0 (0-450) /uL Baso # (Auto) 100 (0-100) /uL PT 12.8 H (10.1-12.7) SECONDS INR 1.1 (0.9-1.3) APTT 29 D (26.4-36.2) SECONDS Sodium 135 L (137-145) mmol/L Potassium 4.7 D (3.4-5.1) mmol/L Chloride 94 L (98-107) mmol/L Carbon Dioxide 24 (22-32) mmol/L BUN 32 H (9-20) mg/dL Creatinine 0.69 (0.66-1.25) mg/dL Estimated GFR > 60.0 (>60) mL/min BUN/Creatinine Ratio 46.4 H (6-22) Glucose 178 H (80-110) mg/dL Lactate (0.7-2.1) mmol/L Calcium 10.7 H (8.4-10.2) mg/dL Total Bilirubin 1.8 H (0.2-1.3) mg/dL AST 124 H (17-59) IU/L ALT 111 H (<50) IU/L Alkaline Phosphatase 63 (38-126) U/L Total Protein 8.5 H (6.3-8.2) g/dL Albumin 4.9 (3.5-5.0) g/dL Globulin 3.6 (1.7-4.1) g/dL Albumin/Globulin Ratio 1.4 (1.0-2.8) Lipase (23-300) U/L SARS-CoV-2 (PCR) (Negative) 08/23/20 08/23/20 08/23/20 Range/Units 09:25 09:25 09:35 WBC (4.5-11.0) X10^3/uL RBC (4.5-5.9) X10^6/uL Hgb (13.5-17.5) g/dL Hct (41-53) % MCV (80-100) fL MCH (26-34) PG MCHC (30-36) % RDW (11.6-14.8) % Plt Count (150-400) X10^3/uL Neut % (Auto) (50-75) % Lymph % (Auto) (25-40) % [place] % (Auto) (3-14) % Eos % (Auto) (2-4) % Baso % (Auto) (0-2) % Neut # (Auto) (6352-0515) /uL Lymph # (Auto) (5419-7792) /uL [place] # (Auto) (0-900) /uL Eos # (Auto) (0-450) /uL Baso # (Auto) (0-100) /uL PT (10.1-12.7) SECONDS INR (0.9-1.3) APTT (26.4-36.2) SECONDS Sodium (137-145) mmol/L Potassium (3.4-5.1) mmol/L Chloride (98-107) mmol/L Carbon Dioxide (22-32) mmol/L BUN (9-20) mg/dL Creatinine (0.66-1.25) mg/dL Estimated GFR (>60) mL/min BUN/Creatinine Ratio (6-22) Glucose (80-110) mg/dL Lactate 4.0 H (0.7-2.1) mmol/L Calcium (8.4-10.2) mg/dL Total Bilirubin (0.2-1.3) mg/dL AST (17-59) IU/L ALT (<50) IU/L Alkaline Phosphatase (38-126) U/L Total Protein (6.3-8.2) g/dL Albumin (3.5-5.0) g/dL Globulin (1.7-4.1) g/dL Albumin/Globulin Ratio (1.0-2.8) Lipase 115 (23-300) U/L SARS-CoV-2 (PCR) Negative (Negative) 08/23/20 Range/Units 12:31 WBC (4.5-11.0) X10^3/uL RBC (4.5-5.9) X10^6/uL Hgb (13.5-17.5) g/dL Hct (41-53) % MCV (80-100) fL MCH (26-34) PG MCHC (30-36) % RDW (11.6-14.8) % Plt Count (150-400) X10^3/uL Neut % (Auto) (50-75) % Lymph % (Auto) (25-40) % [place] % (Auto) (3-14) % Eos % (Auto) (2-4) % Baso % (Auto) (0-2) % Neut # (Auto) (2117-2251) /uL Lymph # (Auto) (3925-1503) /uL [place] # (Auto) (0-900) /uL Eos # (Auto) (0-450) /uL Baso # (Auto) (0-100) /uL PT (10.1-12.7) SECONDS INR (0.9-1.3) APTT (26.4-36.2) SECONDS Sodium (137-145) mmol/L Potassium (3.4-5.1) mmol/L Chloride (98-107) mmol/L Carbon Dioxide (22-32) mmol/L BUN (9-20) mg/dL Creatinine (0.66-1.25) mg/dL Estimated GFR (>60) mL/min BUN/Creatinine Ratio (6-22) Glucose (80-110) mg/dL Lactate 1.2 (0.7-2.1) mmol/L Calcium (8.4-10.2) mg/dL Total Bilirubin (0.2-1.3) mg/dL AST (17-59) IU/L ALT (<50) IU/L Alkaline Phosphatase (38-126) U/L Total Protein (6.3-8.2) g/dL Albumin (3.5-5.0) g/dL Globulin (1.7-4.1) g/dL Albumin/Globulin Ratio (1.0-2.8) Lipase (23-300) U/L SARS-CoV-2 (PCR) (Negative) Urine Dip Bedside Urine Glucose Negative Bedside Urine Bilirubin - Negative Bedside Urine Ketone +++ 80 Urine Specific [place] 1.015 Bedside Urine Occult Blood - Negative Bedside Urine pH 7.5 Bedside Urine Protein +/- 15 Bedside Urine Urobilinogen 1+ 2mg Bedside Urine Nitrite - Negative Bedside Urine Leukocytes - Negative Esterase Imaging Data CT scan - abdomen/pelvis: Radiologist's Impression: PROCEDURE: CT ABDOMEN PELVIS W CON INDICATIONS: upper gi bleed ETOH TECHNIQUE: After the administration of intravenous contrast, axial sections acquired from the lung bases to the pubic symphysis. Coronal and sagittal reformats were performed. For radiation dose reduction, the following was used: automated exposure control, adjustment of mA and/or kV according to patient size. COMPARISON: [facility], , US ABDOMEN LIMITED, 08/12/2020, 9:06. FINDINGS: Image quality: Excellent. Lung bases: Unremarkable. Small hiatal hernia. Heart: No significant findings. ABDOMEN: Liver: There is a 1.1 cm low-density nodule in segment 4. There is diffuse hepatic steatosis. Liver demonstrates nodular contour suggesting cirrhosis. Gallbladder: Unremarkable. Biliary ducts: Unremarkable. Pancreas: Unremarkable. Spleen: Unremarkable. Adrenal Glands: Unremarkable. Kidneys and Ureters: Unremarkable. Stomach and Bowel: There is focal thickening of the gastric antrum. There is nodular enhancement in the lumen of the distal stomach, suspicious for active GI bleeding. Small bowel loops and colon are normal in caliber. There are innumerable colonic diverticula in sigmoid colon. No CT findings to suggest acute diverticulitis. Peritoneum: No abnormal intraperitoneal fluid. No free air. Ventral Wall: No hernias. Abdominal Nodes: No retroperitoneal or mesenteric adenopathy by size criteria. Vessels: Aorta and inferior vena cava are normal in size. Gastric and esophageal varices are present. Possible recannulized umbilical vein. PELVIS: Pelvic Organs: Unremarkable. Bladder: Unremarkable. Pelvic Nodes: No enlarged lymph nodes. Miscellaneous: No hernias are seen. Bones: Unremarkable. Mild degenerative changes in lumbar spine. IMPRESSION: 1. There is focal thickening of the gastric antrum. Nodular enhancement in the lumen of the distal stomach is suspicious for active GI bleeding. 2. Hepatic steatosis. Nodular contour of liver suggesting cirrhosis. There are esophageal and gastric varices and recannulized umbilical vein, likely secondary to portal hypertension 3. There is a 1.1 cm low-density nodule in segment 4. Recommend further evaluation with MRI using liver protocol. 4. Diverticulosis without diverticulitis. The result was discussed with Dr. Frausto in ER. Dictated by: Lorenza Shin M.D. on 08/23/2020 at 10:38 ECG Data Attestation: I personally reviewed and interpreted this ECG as follows: Prior ECG tracings: available for review Interpretation: normal sinus rhythm rate 98 p.r. interval 144 QRS 82 his QTC [address] changes MDM Narrative Medical decision making narrative: patient has a history of alcohol use with now bright red hematemesis differential diagnosis includes variceal bleed, Lee[place]-Huerta bore heaves. Initially all last night presumed to be alcoholic gastritis with possible coffee-ground emesis. He is slightly tachycardic with elevated lactate 4.0. However hemoglobin has hematocrit are relatively stable. Currently normotensive. he is given Ativan to help with possible alcohol withdrawal he is given 2nd dose of Protonix he received first at around 3:00 a.m. and is now immediately started on octreotide drip for presumed variceal bleeding. CT does confirm probable varices with probable cirrhosis and portal hypertension. I have spoken to GI twice at that hospital who also agrees with octreotide drip and Protonix would like Protonix drip unfortunately Protonix drip has been removed from our formulary. He has received 2 doses of Protonix in the last few hours. Discharge Plan Departure Patient Disposition: [facility] Clinical Impression: Acute GI bleeding Prescriptions: No Action lisinopril-hydrochlorothiazide 20-25 mg tablet 1 tab PO DAILY Qty: 30 RF: 0 ondansetron [Zofran ODT] 4 mg Tablet,Disintegrating 4 mg PO Q4H PRN (Reason: nausea/vomiting) RF: 0 Referrals: Edyta Schultz ARNP [Primary Care Provider] -
[2020-08-23 09:40] LABS: Add Manual Diff / Slide Review NO; Basophils Absolute Auto 100 /uL (0-100); Basophils Percent Auto 0.6 % (0-2); Eosinophils Absolute Auto 0 /uL (0-450); Eosinophils Percent Auto 0.1 % (2-4); Hematocrit 41.5 % (41-53); Hemoglobin 14.4 g/dL (13.5-17.5); Lymphocytes Absolute Auto 1800 /uL (1100-4500); Lymphocytes Percent Auto 14.7 % (25-40); Mean Corpuscular HGB Conc 34.7 % (30-36); Mean Corpuscular Hemoglobin 32.1 PG (26-34); Mean Corpuscular Volume 92.3 fL (80-100); Monocytes Absolute Auto 1100 /uL (0-900); Monocytes Percent Auto 9.5 % (3-14); Neutrophils Absolute Auto 9000 /uL (1500-7000); Neutrophils Percent Auto 75.1 % (50-75); Platelet Count 229 X10^3/uL (150-400); Red Blood Cell Count 4.49 X10^6/uL (4.5-5.9); Red Cell Distribution Width 12.9 % (11.6-14.8)
[2020-08-23] MEDS: ONDANSETRON 4 MG/2 ML INJ IV (09:43)
[2020-08-23] MEDS: PANTOPRAZOLE 40 MG VIAL IV (09:43)
[2020-08-23 09:58] LABS: Alanine Aminotransferase 111 IU/L (<50); Albumin 4.9 g/dL (3.5-5.0); Albumin Globulin Ratio 1.4 (1.0-2.8); Alkaline Phosphatase 63 U/L (38-126); Aspartate Aminotransferase 124 IU/L (17-59); BUN Creatinine Ratio 46.4 (6-22); Bilirubin Total 1.8 mg/dL (0.2-1.3); Blood Urea Nitrogen 32 mg/dL (9-20); Calcium 10.7 mg/dL (8.4-10.2); Carbon Dioxide 24 mmol/L (22-32); Chloride 94 mmol/L (98-107); Estimated Glomerular Filt Rate > 60.0 mL/min (>60); Globulin 3.6 g/dL (1.7-4.1); Glucose 178 mg/dL (80-110); Sodium 135 mmol/L (137-145); Total Protein 8.5 g/dL (6.3-8.2)
[2020-08-23 09:59] LABS: HEMOLYSIS 155 (0-50); INR 1.1 (0.9-1.3); PTT Partial Thromboplastin Tim 29 SECONDS (26.4-36.2); Prothrombin Time 12.8 SECONDS (10.1-12.7)
[2020-08-23 10:00] LABS: Lipase 115 U/L (23-300); Potassium 4.7 mmol/L (3.4-5.1)
[2020-08-23] MEDS: OCTREOTIDE 500 MCG in SODIUM CHLORIDE 0.9% 100 ML 10.1 ML IV (10:05)
[2020-08-23] MEDS: LORazepam 2 MG/ML INJ 1 MG IV (10:05)
[2020-08-23] MEDS: OCTREOTIDE 100 MCG/ML VIAL 50 MCG IV (10:05)
--- NOTE | 2020-08-23 10:28 | PC.NURSE ---
Of note, pt was on Baclofen and Naproxen since 08/04 but was discontinued after residential instructor visit.
--- NOTE | 2020-08-23 10:37 | DI.CT.S_ITS ---
PROCEDURE: CT ABDOMEN PELVIS W CON INDICATIONS: upper gi bleed ETOH TECHNIQUE: After the administration of intravenous contrast, axial sections acquired from the lung bases to the pubic symphysis. Coronal and sagittal reformats were performed. For radiation dose reduction, the following was used: automated exposure control, adjustment of mA and/or kV according to patient size. COMPARISON: [facility], , US ABDOMEN LIMITED, 08/12/2020, 9:06. FINDINGS: Image quality: Excellent. Lung bases: Unremarkable. Small hiatal hernia. Heart: No significant findings. ABDOMEN: Liver: There is a 1.1 cm low-density nodule in segment 4. There is diffuse hepatic steatosis. Liver demonstrates nodular contour suggesting cirrhosis. Gallbladder: Unremarkable. Biliary ducts: Unremarkable. Pancreas: Unremarkable. Spleen: Unremarkable. Adrenal Glands: Unremarkable. Kidneys and Ureters: Unremarkable. Stomach and Bowel: There is focal thickening of the gastric antrum. There is nodular enhancement in the lumen of the distal stomach, suspicious for active GI bleeding. Small bowel loops and colon are normal in caliber. There are innumerable colonic diverticula in sigmoid colon. No CT findings to suggest acute diverticulitis. Peritoneum: No abnormal intraperitoneal fluid. No free air. Ventral Wall: No hernias. Abdominal Nodes: No retroperitoneal or mesenteric adenopathy by size criteria. Vessels: Aorta and inferior vena cava are normal in size. Gastric and esophageal varices are present. Possible recannulized umbilical vein. PELVIS: Pelvic Organs: Unremarkable. Bladder: Unremarkable. Pelvic Nodes: No enlarged lymph nodes. Miscellaneous: No hernias are seen. Bones: Unremarkable. Mild degenerative changes in lumbar spine. IMPRESSION: 1. There is focal thickening of the gastric antrum. Nodular enhancement in the lumen of the distal stomach is suspicious for active GI bleeding. 2. Hepatic steatosis. Nodular contour of liver suggesting cirrhosis. There are esophageal and gastric varices and recannulized umbilical vein, likely secondary to portal hypertension 3. There is a 1.1 cm low-density nodule in segment 4. Recommend further evaluation with MRI using liver protocol. 4. Diverticulosis without diverticulitis. The result was discussed with Dr. Frausto in ER. Dictated by: Lorenza Shin M.D. on 08/23/2020 at 10:38 Approved by: Lorenza Shin M.D. on 08/23/2020 at 11:01
[2020-08-23 10:42] LABS: COVID19 - ADMIT (NP swab/PCR) Negative (Negative)
[2020-08-23 11:34] LABS: Reflexed Lactate in 2 Hours Y
[2020-08-23 13:38] LABS: Lactate 2HR (Lactic Acid Rflx) 1.2 mmol/L (0.7-2.1)
--- NOTE | 2020-08-23 14:35 | PC.NURSE ---
Was assisting patient to the restroom. Patient stated that he was feeling dizzy and appeared to be losing balance. Stood next to patient to guide him if he started to fall as he stated he thought he might pass out. Assisted patient to nearest furniture to sit down. Patient was able to use urinal in the chair.
--- NOTE | 2020-08-23 14:58 | PC.NURSE ---
Pt transferred at 1435 by [facility] with Octreotide infusing 10.1ml/hr. Provider aware.
--- NOTE | 2020-08-23 17:56 | PC.NURSE ---
At Dr. Escudero's request, faxed result of covid test to [phone]
== END 2020-08-23 14:35 | disposition short-term general hospital (02) ==
PROVIDERS: Emergency Provider Emergency Medicine; PCP Nurse Practitioner Family
DX: K92.2 Gastrointestinal hemorrhage, unspecified (principal); F10.20 Alcohol dependence, uncomplicated; I10 Essential (primary) hypertension; Z20.822 Contact with and (suspected) exposure to COVID-19
CPT/HCPCS: 36415; 74177; 80053; 80320; 81003; 83605; 83690; 85025; 85610; 85730; 87635; 93005; 96365; 96366; 96375; 96376; 99284; 99285; C9803; C9113; J2060; J2354; J2405

== ENCOUNTER → 2020-08-31 09:52 | Outpatient (CLI) | payer OTHER, SELFPAY ==
[2020-08-31 10:17] LABS: Hemoglobin 9.8 g/dL (13.5-17.5); Mean Corpuscular HGB Conc 33.8 % (30-36); Mean Corpuscular Hemoglobin 32.2 PG (26-34); Mean Corpuscular Volume 95.2 fL (80-100); Platelet Count 319 X10^3/uL (150-400); Red Blood Cell Count 3.05 X10^6/uL (4.5-5.9); Red Cell Distribution Width 12.9 % (11.6-14.8); White Blood Cell Count 8.4 X10^3/uL (4.5-11.0)
[2020-08-31 11:19] LABS: Alanine Aminotransferase 65 IU/L (<50); Albumin 4.4 g/dL (3.5-5.0); Albumin Globulin Ratio 1.6 (1.0-2.8); Alkaline Phosphatase 63 U/L (38-126); Aspartate Aminotransferase 77 IU/L (17-59); BUN Creatinine Ratio 11.1 (6-22); Bilirubin Total 0.6 mg/dL (0.2-1.3); Blood Urea Nitrogen 7 mg/dL (9-20); Calcium 9.6 mg/dL (8.4-10.2); Carbon Dioxide 25 mmol/L (22-32); Chloride 99 mmol/L (98-107); Estimated Glomerular Filt Rate > 60.0 mL/min (>60); Globulin 2.7 g/dL (1.7-4.1); Glucose 116 mg/dL (80-110); HEMOLYSIS < 15 (0-50); Potassium 4.1 mmol/L (3.4-5.1); Sodium 133 mmol/L (137-145); Total Protein 7.1 g/dL (6.3-8.2)
== END ==
PROVIDERS: PCP Nurse Practitioner Family; Referring Provider Nurse Practitioner Family; Visit Provider Nurse Practitioner Family
DX: K29.70 Gastritis, unspecified, without bleeding (principal); R74.8 Abnormal levels of other serum enzymes
CPT/HCPCS: 36415; 80053; 85027

== ENCOUNTER → 2020-09-07 11:50 | Outpatient (CLI) | payer OTHER, SELFPAY ==
[2020-09-07 13:09] LABS: Hematocrit 30.3 % (41-53); Hemoglobin 10.2 g/dL (13.5-17.5); Mean Corpuscular HGB Conc 33.6 % (30-36); Mean Corpuscular Hemoglobin 31.6 PG (26-34); Platelet Count 394 X10^3/uL (150-400); Red Blood Cell Count 3.22 X10^6/uL (4.5-5.9); Red Cell Distribution Width 13.5 % (11.6-14.8); White Blood Cell Count 7.6 X10^3/uL (4.5-11.0)
== END ==
PROVIDERS: PCP Nurse Practitioner Family; Referring Provider Nurse Practitioner Family; Visit Provider Nurse Practitioner Family
DX: D64.9 Anemia, unspecified (principal); Z87.19 Personal history of other diseases of the digestive system
CPT/HCPCS: 36415; 85027

== ENCOUNTER → 2020-09-28 16:35 | Outpatient (CLI) | payer OTHER, SELFPAY ==
[2020-09-28 16:38] LABS: Bacteria Urine None Seen; RBC Urine None Seen (0-5/HPF); WBC Urine None Seen (0-5/HPF)
[2020-09-28 18:11] LABS: Appearance Urine UA CLEAR; Bilirubin Urine UA NEGATIVE (NEGATIVE); Color Urine UA YELLOW; Glucose Urine UA NEGATIVE (Negative); Ketones Urine UA NEGATIVE (NEGATIVE); Leukocyte Esterase Urine UA NEGATIVE (NEGATIVE); Nitrite Urine UA NEGATIVE (Negative); Occult Blood Urine UA NEGATIVE (Negative); Protein Urine UA NEGATIVE (Negative); Urobilinogen Urine UA 0.2 E.U./dL (0.2); pH Urine UA 6.5 (4.5-8.0)
[2020-09-28 18:17] LABS: Prostate Specific Antigen Scrn 0.876 ng/mL (0.1-4.0)
[2020-09-28 18:55] LABS: Culture Indicated Urine Cult Not Indicated
== END ==
PROVIDERS: PCP Nurse Practitioner Family; Referring Provider Nurse Practitioner Family; Visit Provider Nurse Practitioner Family
DX: R35.1 Nocturia (principal); Z12.5 Encounter for screening for malignant neoplasm of prostate
CPT/HCPCS: 36415; 81001; G0103

== ENCOUNTER → 2020-12-02 11:00 | Outpatient (CLI) | payer OTHER, SELFPAY ==
[2020-12-02 12:19] LABS: Add Manual Diff / Slide Review NO; Basophils Absolute Auto 0 /uL (0-100); Basophils Percent Auto 0.5 % (0-2); Eosinophils Absolute Auto 100 /uL (0-450); Eosinophils Percent Auto 1.2 % (2-4); Hematocrit 40.9 % (41-53); Hemoglobin 13.5 g/dL (13.5-17.5); Lymphocytes Absolute Auto 1500 /uL (1100-4500); Lymphocytes Percent Auto 18.4 % (25-40); Mean Corpuscular Hemoglobin 27.8 PG (26-34); Mean Corpuscular Volume 84.1 fL (80-100); Monocytes Absolute Auto 600 /uL (0-900); Monocytes Percent Auto 6.9 % (3-14); Neutrophils Absolute Auto 6000 /uL (1500-7000); Platelet Count 222 X10^3/uL (150-400); Red Blood Cell Count 4.87 X10^6/uL (4.5-5.9); Red Cell Distribution Width 14.9 % (11.6-14.8); White Blood Cell Count 8.3 X10^3/uL (4.5-11.0)
[2020-12-02 12:42] LABS: Alanine Aminotransferase 18 IU/L (<50); Albumin 4.4 g/dL (3.5-5.0); Albumin Globulin Ratio 1.7 (1.0-2.8); Alkaline Phosphatase 74 U/L (38-126); Aspartate Aminotransferase 29 IU/L (17-59); BUN Creatinine Ratio 14.7 (6-22); Bilirubin Total 0.4 mg/dL (0.2-1.3); Blood Urea Nitrogen 11 mg/dL (9-20); Calcium 9.7 mg/dL (8.4-10.2); Carbon Dioxide 25 mmol/L (22-32); Chloride 102 mmol/L (98-107); Estimated Glomerular Filt Rate > 60.0 mL/min (>60); Globulin 2.6 g/dL (1.7-4.1); Glucose 143 mg/dL (80-110); HEMOLYSIS 18 (0-50); Potassium 4.3 mmol/L (3.4-5.1); Sodium 136 mmol/L (137-145)
== END ==
PROVIDERS: PCP Nurse Practitioner Family; Referring Provider Nurse Practitioner Family; Visit Provider Nurse Practitioner Family
DX: Z00.00 Encounter for general adult medical examination without abnormal findings (principal); D50.9 Iron deficiency anemia, unspecified; F10.10 Alcohol abuse, uncomplicated; R74.8 Abnormal levels of other serum enzymes; Z87.19 Personal history of other diseases of the digestive system
CPT/HCPCS: 36415; 80053; 85025

== ENCOUNTER → 2021-03-16 08:03 | Outpatient (CLI) | payer OTHER, SELFPAY ==
[2021-03-16 10:13] LABS: Hematocrit 41.2 % (41-53); Hemoglobin 13.9 g/dL (13.5-17.5); Mean Corpuscular HGB Conc 33.8 % (30-36); Mean Corpuscular Hemoglobin 28.9 PG (26-34); Mean Corpuscular Volume 85.6 fL (80-100); Platelet Count 196 X10^3/uL (150-400); Red Blood Cell Count 4.81 X10^6/uL (4.5-5.9); Red Cell Distribution Width 15.1 % (11.6-14.8); White Blood Cell Count 5.1 X10^3/uL (4.5-11.0)
[2021-03-16 10:28] LABS: Alanine Aminotransferase 19 IU/L (<50); Albumin 4.5 g/dL (3.5-5.0); Albumin Globulin Ratio 1.5 (1.0-2.8); Alkaline Phosphatase 54 U/L (38-126); Aspartate Aminotransferase 32 IU/L (17-59); BUN Creatinine Ratio 13.5 (6-22); Bilirubin Total 0.4 mg/dL (0.2-1.3); Blood Urea Nitrogen 10 mg/dL (9-20); Calcium 9.8 mg/dL (8.4-10.2); Carbon Dioxide 28 mmol/L (22-32); Chloride 106 mmol/L (98-107); Estimated Glomerular Filt Rate > 60.0 mL/min (>60); Globulin 3.1 g/dL (1.7-4.1); Glucose 101 mg/dL (80-110); HEMOLYSIS < 15 (0-50); Sodium 138 mmol/L (137-145); Total Protein 7.6 g/dL (6.3-8.2)
== END ==
PROVIDERS: PCP Nurse Practitioner Family; Referring Provider Nurse Practitioner Family; Visit Provider Nurse Practitioner Family
DX: K70.9 Alcoholic liver disease, unspecified (principal); Z00.00 Encounter for general adult medical examination without abnormal findings
CPT/HCPCS: 36415; 80053; 85027

== ENCOUNTER → 2021-03-23 07:53 | Outpatient (CLI) | payer OTHER, SELFPAY ==
[2021-03-23 08:21] LABS: COVID19 -Nasal RAPID Negative (Negative)
== END ==
PROVIDERS: PCP Nurse Practitioner Family; Visit Provider Physical Medicine & Rehabilitation
DX: Z20.822 Contact with and (suspected) exposure to COVID-19 (principal)
CPT/HCPCS: 87635

== ENCOUNTER 2021-03-24 12:23 | Outpatient (CLI) | payer OTHER, SELFPAY ==
[2021-03-24] VITALS (8 sets, daily range): BP systolic 115–152; BP diastolic 67–90; PULSE 66–77; RESP 9–18; TEMP 36.7; O2SAT 93–100
--- NOTE | 2021-03-24 12:24 | DI.RAD.S_ITS ---
PROCEDURE: PAIN L/S TRANSFORAMINAL INJECT INDICATIONS: SPONDYLOSIS COMPARISON: [facility] MR, MR LUMBAR SPINE WITHOUT CONTRAST, 11/02/2020, 9:14. FINDINGS: Fluoroscopic spot filming was performed to verify placement of a spinal needle at the L3-L4 level, as labeled on the films. Appropriate location of the needle tip was confirmed by injection of iodinated contrast. IMPRESSION: Intraprocedural examination within normal limits. Dictated by: Ulices Dickerson M.D. on 03/24/2021 at 13:27 Approved by: Ulices Dickerson M.D. on 03/24/2021 at 13:27
[2021-03-24] MEDS: MIDAZOLAM 5 MG/5 ML VIAL IV (13:30)
[2021-03-24] MEDS: fentaNYL 100 MCG/2 ML INJ 50 MCG IV (13:30)
[2021-03-24] MEDS: BETAMETHASONE 30 MG/5 ML MDV 6 MG INJ (13:34)
[2021-03-24] MEDS: BUPIVACAINE 0.25% (PF) VIAL 2 ML INJ (13:34)
[2021-03-24] MEDS: IOPAMIDOL 15 ML VIAL 3 ML INJ (13:34)
[2021-03-24] MEDS: DEXAMETHASONE 10 MG/ML VIAL 20 MG INJ (13:35)
--- NOTE | 2021-03-24 13:44 | P.PCN_ITS ---
Date/Time/Diagnoses Date of procedure: 03/24/21 Time of procedure: 13:44 Pre-procedure diagnosis: 1. FORAMINAL STENOSIS WITH LE SYMPTOMS Post-procedure diagnosis: same Procedure Notes Procedure: 1. FLUOROSCOPICALLY GUIDED CONTRAST CONTROLLED TRANSFORAMINAL EPIDURAL STEROID INJECTION - RIGHT L3/4 TFESI Indications: Victorino is referred by DALIA Schultz for treatment of Foraminal Stenosis with right LE Symptoms Physician: Vick Diop Total Fluoroscopy time (seconds): 10 Total sedation minutes: 12 Complications: none Procedure in detail & Post-procedure care: FINDINGS Foraminal Nerve Root Compression secondary to disc disease and facet hypertrophy DESCRIPTION OF PROCEDURE Following review of allergy and review of potential side effects and complications, including, but not necessarily limited to, infection, allergic reaction, local tissue breakdown, stroke, temporary or permanent nerve injury, paralysis, and possible , the patient indicated that the patient understood and agreed to proceed. An informed consent document was signed by the patient, witnessed by a nurse, and placed in the patient's chart. Additionally, other treatment options including medications, modalities, and physical therapy were reviewed with the patient. After review of previous anaesthesic history and IV conscious sedation the patient was deemed safe to proceed with today?s procedure with IV conscious sedation as ASA class II designation. Safety time-out was performed to confirm patient ID, procedure to be performed and site of procedure. IV sedation was accomplished with a combination of 3mg of Versed and 50mcg of Fentanyl was administered by the RN after DO order, titrated to patient comfort during the course of the procedure while the patient remained responsive to all verbal commands In the prone position following sterile prep and drape of the lumbar region, the right L3/4 posterior neuroforamen was identified fluoroscopically. The skin was anesthetized via a 25-gauge 1.5-inch needle with 1% lidocaine solution. At this point, a 25-gauge 3.5-inch spinal needle was atraumatically introduced and advanced under fluoroscopic guidance through the posterior right L3/4 n euroforamen to approximately the anterior aspect of the canal. Depth was confirmed on lateral view. Following negative aspiration, injection of approximately 1.5 cc of Isovue 200 under live fluoroscopy in the AP view confirmed excellent flow along the nerve root, into the epidural space without vascular or intrathecal uptake observed Radiological data, including multiple fluoroscopic views of the lumbosacral spine, reveal a spinal needle at the right L3/4 posterior neuroforamen. Subsequent views show flow of contrast material flowing superiorly and inferiorly along the nerve root confirming epidural flow. Subsequently, a test dose of 1.5 cc of 1% lidocaine solution was administered and patient was observed for two minutes for signs or symptoms of complications, including abdominal pain, shortness of breath, bilateral upper or lower extremity weakness, nausea and vomiting, prior to steroid injection. At this point, a total of 3cc or 20mg of dexamethasone and 6mg of betamethasone was injected without incident. The patient tolerated the procedure well without signs or symptoms of complications prior to transfer to the recovery area continued monitoring without incident. The patient was then transferred to the recovery area where they were observed for an appropriate time after the injection. The patient reported a VAS score of 7 prior to the procedure and a post-procedure VAS of 0. POST OP INSTRUCTIONS The patient was provided a Pain Log to continue to record their response to the target-specific procedure prior to follow-up visit with their referring physician. Additionally, specific post-injection care instructions and a contact number to our office were provided if concerns arise regarding possible complications associated with the procedure are suspected.
== END 2021-03-24 14:18 | disposition home or self-care (01) ==
PROVIDERS: PCP Nurse Practitioner Family; Referring Provider Physical Medicine & Rehabilitation; Visit Provider Physical Medicine & Rehabilitation
DX: M48.061 Spinal stenosis, lumbar region without neurogenic claudication (principal); M51.16 Intervertebral disc disorders with radiculopathy, lumbar region
CPT/HCPCS: 64483; 99152; J0702; J1100; J2250; J3010

== ENCOUNTER → 2021-05-10 11:13 | Outpatient (CLI) | payer OTHER, SELFPAY ==
[2021-05-10 12:27] LABS: COVID19 -Nasal RAPID Negative (Negative)
== END ==
PROVIDERS: PCP Nurse Practitioner Family; Visit Provider Physical Medicine & Rehabilitation
DX: Z20.822 Contact with and (suspected) exposure to COVID-19 (principal)
CPT/HCPCS: 87635; C9803

== ENCOUNTER 2021-05-12 14:08 | Outpatient (CLI) | payer OTHER, SELFPAY ==
[2021-05-12] VITALS (9 sets, daily range): BP systolic 108–158; BP diastolic 65–87; PULSE 68–76; RESP 12–20; TEMP 36.8; O2SAT 93–100
--- NOTE | 2021-05-12 14:09 | DI.RAD.S_ITS ---
PROCEDURE: PAIN L/S TRANSFORAMINAL INJECT INDICATIONS: Spondylosis COMPARISON: [facility], , PAIN L/S TRANSFORAMINAL INJECT, 03/24/2021, 14:34. FINDINGS: Fluoroscopic spot filming was performed to verify placement of spinal needles at the right L3-4 and L5-S1 level(s), as labeled on the films. Appropriate location(s) of the needle tip(s) was confirmed by injection of iodinated contrast. IMPRESSION: Fluoro guidance was provided intraoperatively for right L3-4 and L5-S1 transforaminal epidural steroid injections performed by the ordering physician. Dictated by: Amish Jc M.D. on 05/12/2021 at 15:06 Approved by: Amish Jc M.D. on 05/12/2021 at 15:07
[2021-05-12] MEDS: BUPIVACAINE 0.25% (PF) VIAL 2 ML INJ (14:43)
[2021-05-12] MEDS: IOPAMIDOL 15 ML VIAL 3 ML INJ (14:44)
[2021-05-12] MEDS: DEXAMETHASONE 10 MG/ML VIAL 20 MG INJ (14:44)
[2021-05-12] MEDS: BETAMETHASONE 30 MG/5 ML MDV 12 MG INJ (14:44)
[2021-05-12] MEDS: fentaNYL 100 MCG/2 ML INJ (14:45)
[2021-05-12] MEDS: MIDAZOLAM 2 MG/2 ML VIAL 4 MG (14:45)
[2021-05-12] MEDS: MIDAZOLAM 2 MG/2 ML VIAL IV (14:45)
--- NOTE | 2021-05-12 14:55 | P.PCN_ITS ---
Date/Time/Diagnoses Date of procedure: 05/12/21 Time of procedure: 14:55 Pre-procedure diagnosis: 1. FORAMINAL STENOSIS WITH LE SYMPTOMS Post-procedure diagnosis: same Procedure Notes Procedure: 1. FLUOROSCOPICALLY GUIDED CONTRAST CONTROLLED TRANSFORAMINAL EPIDURAL STEROID INJECTION - RIGHT L3/4 TFESI Indications: Victorino is referred by DALIA Schultz for treatment of Foraminal Stenosis with right LE Symptoms Physician: Vick Diop Total Fluoroscopy time (seconds): 14 Total sedation minutes: 12 Complications: none Procedure in detail & Post-procedure care: FINDINGS Foraminal Nerve Root Compression secondary to disc disease and facet hypertrophy DESCRIPTION OF PROCEDURE Following review of allergy and review of potential side effects and complications, including, but not necessarily limited to, infection, allergic reaction, local tissue breakdown, stroke, temporary or permanent nerve injury, paralysis, and possible , the patient indicated that the patient understood and agreed to proceed. An informed consent document was signed by the patient, witnessed by a nurse, and placed in the patient's chart. Additionally, other treatment options including medications, modalities, and physical therapy were reviewed with the patient. After review of previous anaesthesic history and IV conscious sedation the patient was deemed safe to proceed with today?s procedure with IV conscious sedation as ASA class II designation. Safety time-out was performed to confirm patient ID, procedure to be performed and site of procedure. IV sedation was accomplished with a combination of 3mg of Versed and 50mcg of Fentanyl was administered by the RN after DO order, titrated to patient comfort during the course of the procedure while the patient remained responsive to all verbal commands In the prone position following sterile prep and drape of the lumbar region, the right L3/4 posterior neuroforamen was identified fluoroscopically. The skin was anesthetized via a 25-gauge 1.5-inch needle with 1% lidocaine solution. At this point, a 25-gauge 3.5-inch spinal needle was atraumatically introduced and advanced under fluoroscopic guidance through the posterior right L3/4 n euroforamen to approximately the anterior aspect of the canal. Depth was confirmed on lateral view. Following negative aspiration, injection of approximately 1.5 cc of Isovue 200 under live fluoroscopy in the AP view confirmed excellent flow along the nerve root, into the epidural space without vascular or intrathecal uptake observed Radiological data, including multiple fluoroscopic views of the lumbosacral spine, reveal a spinal needle at the right L3/4 posterior neuroforamen. Subsequent views show flow of contrast material flowing superiorly and inferiorly along the nerve root confirming epidural flow. Subsequently, a test dose of 1.5 cc of 1% lidocaine solution was administered and patient was observed for two minutes for signs or symptoms of complications, including abdominal pain, shortness of breath, bilateral upper or lower extremity weakness, nausea and vomiting, prior to steroid injection. At this point, a total of 3cc or 20mg of dexamethasone and 6mg of betamethasone was injected without incident. The patient tolerated the procedure well without signs or symptoms of complications prior to transfer to the recovery area continued monitoring without incident. The patient was then transferred to the recovery area where they were observed for an appropriate time after the injection. The patient reported a VAS score of 7 prior to the procedure and a post-procedure VAS of 0. POST OP INSTRUCTIONS The patient was provided a Pain Log to continue to record their response to the target-specific procedure prior to follow-up visit with their referring physician. Additionally, specific post-injection care instructions and a contact number to our office were provided if concerns arise regarding possible complications associated with the procedure are suspected.
--- NOTE | 2021-05-12 14:56 | P.PCN_ITS ---
Date/Time/Diagnoses Date of procedure: 05/12/21 Time of procedure: 14:56 Pre-procedure diagnosis: FORAMINAL STENOSIS WITH LE SYMPTOMS Post-procedure diagnosis: same Procedure Notes Procedure: 1. FLUOROSCOPICALLY GUIDED CONTRAST CONTROLLED TRANSFORAMINAL EPIDURAL STEROID INJECTION - RIGHT L5/S1 TFESI Indications: Victorino is referred by DALIA Schultz for treatment of Foraminal Stenosis with Right LE Symptoms Physician: Vick Diop Total Fluoroscopy time (seconds): 14 Total sedation minutes: 12 Complications: none Procedure in detail & Post-procedure care: FINDINGS Foraminal Nerve Root Compression secondary to disc disease and facet hypertrophy DESCRIPTION OF PROCEDURE Following review of allergy and review of potential side effects and complications, including, but not necessarily limited to, infection, allergic re action, local tissue breakdown, stroke, temporary or permanent nerve injury, paralysis, and possible , the patient indicated that the patient understood and agreed to proceed. An informed consent document was signed by the patient, witnessed by a nurse, and placed in the patient's chart. Additionally, other treatment options including medications, modalities, and physical therapy were reviewed with the patient. After review of previous anaesthesic history and IV conscious sedation the patient was deemed safe to proceed with today?s procedure with IV conscious sedation as ASA class II designation. Safety time-out was performed to confirm patient ID, procedure to be performed and site of procedure. IV sedation was accomplished with a combination of 3mg of Versed and 50mcg of Fentanyl was administered by the RN after DO order, titrated to patient comfort during the course of the procedure while the patient remained responsive to all verbal commands In the prone position following sterile prep and drape of the lumbar region, the right L5/S1 posterior neuroforamen was identified fluoroscopically. The skin was anesthetized via a 25-gauge 1.5-inch needle with 1% lidocaine solution. At this point, a 25-gauge 3.5-inch spinal needle was atraumatically introduced and advanced under fluoroscopic guidance through the posterior right L5/S1 neuroforamen to approximately the anterior aspect of the canal. Depth was confirmed on lateral view. Following negative aspiration, injection of approximately 1.5cc of Isovue 200 under live fluoroscopy in the AP view confirmed excellent flow along the nerve root, into the epidural space without vascular or intrathecal uptake observed Radiological data, including multiple fluoroscopic views of the lumbosacral spine, reveal a spinal needle at the right L5/S1 posterior neuroforamen. Subsequent views show flow of contrast material flowing superiorly and inferiorly along the nerve root confirming epidural flow. Subsequently, a test dose of 1.5 cc of 1% lidocaine solution was administered and patient was observed for two minutes for signs or symptoms of complications, including abdominal pain, shortness of breath, bilateral upper or lower extremity weakness, nausea and vomiting, prior to steroid injection. At this point, a total of 3cc or 20mg of dexamethasone and 6mg of betamethasone was injected without incident. The procedure tolerated the procedure well without signs or symptoms of complications prior to transfer to the recovery area continued monitoring without incident. The patient was then transferred to the recovery area where they were observed for an appropriate time after the injection. The patient reported a VAS score of 7 prior to the procedure and a post- procedure VAS of 0. POST OP INSTRUCTIONS The patient was provided a Pain Log to continue to record their response to the target-specific procedure prior to follow-up visit with their referring physician. Additionally, specific post-injection care instructions and a contact number to our office were provided if concerns arise regarding possible complications associated with the procedure are suspected.
== END 2021-05-12 15:17 | disposition home or self-care (01) ==
PROVIDERS: PCP Nurse Practitioner Family; Referring Provider Physical Medicine & Rehabilitation; Visit Provider Physical Medicine & Rehabilitation
DX: M48.061 Spinal stenosis, lumbar region without neurogenic claudication (principal); M51.16 Intervertebral disc disorders with radiculopathy, lumbar region
CPT/HCPCS: 64483; 99152; J0702; J1100; J2250; J3010

== ENCOUNTER → 2021-08-12 12:02 | Outpatient (CLI) | payer OTHER, SELFPAY ==
[2021-08-12 12:44] LABS: Add Manual Diff / Slide Review NO; Basophils Absolute Auto 0 /uL (0-100); Basophils Percent Auto 0.6 % (0-2); Eosinophils Absolute Auto 200 /uL (0-450); Eosinophils Percent Auto 2.9 % (2-4); Hematocrit 42.6 % (41-53); Hemoglobin 14.7 g/dL (13.5-17.5); Lymphocytes Absolute Auto 1700 /uL (1100-4500); Mean Corpuscular HGB Conc 34.6 % (30-36); Mean Corpuscular Hemoglobin 29.9 PG (26-34); Mean Corpuscular Volume 86.4 fL (80-100); Monocytes Absolute Auto 500 /uL (0-900); Monocytes Percent Auto 8.8 % (3-14); Neutrophils Absolute Auto 3600 /uL (1500-7000); Neutrophils Percent Auto 59.7 % (50-75); Platelet Count 182 X10^3/uL (150-400); Red Blood Cell Count 4.93 X10^6/uL (4.5-5.9); Red Cell Distribution Width 13.8 % (11.6-14.8)
[2021-08-13 01:14] LABS: Alanine Aminotransferase 26 IU/L (<50); Albumin 4.5 g/dL (3.5-5.0); Albumin Globulin Ratio 1.6 (1.0-2.8); Alkaline Phosphatase 64 U/L (38-126); Aspartate Aminotransferase 35 IU/L (17-59); BUN Creatinine Ratio 16.7 (6-22); Bilirubin Total 0.8 mg/dL (0.2-1.3); Blood Urea Nitrogen 12 mg/dL (9-20); Calcium 9.7 mg/dL (8.4-10.2); Carbon Dioxide 27 mmol/L (22-32); Chloride 103 mmol/L (98-107); Cholesterol 242 mg/dL (140-199); Estimated Glomerular Filt Rate > 60 mL/min (>60); Globulin 2.8 g/dL (1.7-4.1); Glucose 102 mg/dL (80-110); HDL Cholesterol 50 mg/dL (40-60); HEMOLYSIS < 15 (0-50); LDL Cholesterol Calculated 162 mg/dL (<100); Sodium 139 mmol/L (137-145); Total Protein 7.3 g/dL (6.3-8.2); Triglycerides 149 mg/dL (35-150)
== END ==
PROVIDERS: PCP Family Medicine; Referring Provider Family Medicine; Visit Provider Family Medicine
DX: E78.2 Mixed hyperlipidemia (principal); I10 Essential (primary) hypertension
CPT/HCPCS: 36415; 80053; 80061; 85025

== ENCOUNTER → 2022-06-13 14:18 | Outpatient (CLI) | payer OTHER, SELFPAY ==
--- NOTE | 2022-06-13 14:19 | DI.CT.S_ITS ---
PROCEDURE: CT ANGIO HEAD INDICATIONS: Worsening vertigo, dizziness with head movement dave ext TECHNIQUE: Precontrast 4.5 mm thick angled axial sections acquired from the foramen magnum to the vertex. After the administration of intravenous contrast, 1 mm thick sections acquired through the [place] of [place]. Postcontrast 4.5 mm thick sections then re-acquired from the foramen magnum to the vertex. 10 mm thick mrjddov-wvfcmequb-hngjpepvtg (MIP) reformats were acquired of the central intracranial vasculature. For radiation dose reduction, the following was used: automated exposure control, adjustment of mA and/or kV according to patient size. COMPARISON: None. FINDINGS: Image quality: This examination is limited by involuntary motion artifact. Anterior circulation: Intracranial internal carotid arteries are normal in size and flow. The flow within the paired anterior cerebral arteries is normal and symmetric. The flow within the middle cerebral arteries is normal and symmetric. The anterior communicating artery is seen. No aneurysms are seen. Posterior circulation: The left V4 segment is within normal limits. The right V4 segment largely terminates in the right posterior inferior cerebellar artery. There is a normal appearing basilar artery. Flow within the posterior cerebral arteries is normal and symmetric. No aneurysms are seen. CSF spaces: Ventricles are normal in size and shape. Basal cisterns are patent. No extra-axial fluid collections. Brain: No midline shift. No intracranial bleeds or masses. [place]reras-white matter interface appears intact. Skull and face: Calvarium and facial bones appear intact, without suspicious lesions. There is a partially calcified right lateral scalp lesion seen, as on series 4, image 26, measuring 12 mm. Sinuses: Visualized sinuses and mastoids are clear. IMPRESSION: No significant intracranial arterial abnormality is seen. No significant underlying brain abnormality is seen. 12 mm right lateral scalp lesion seen, which is partially calcified. Please correlate with known patient history and physical examination findings. Dictated by: Ulices Dickerson M.D. on 06/13/2022 at 15:58 Approved by: Ulices Dickerson M.D. on 06/13/2022 at 16:00
--- NOTE | 2022-06-13 14:19 | DI.US.S_ITS ---
PROCEDURE: US SCROTUM INDICATIONS: Painful varicocele TECHNIQUE: Real-time scanning was performed of the scrotum and testicles, with image documentation. Color and pulse Doppler interrogation was performed of both testicles. COMPARISON: None. FINDINGS: Right: Testicle is normal in size at 4.3 x 2.2 x 3.4 cm, and homogenous in echotexture. 2 mm calcification is noted in inferior testes. Epididymis is normal in size. Cluster of right epididymal head cysts are seen measures up to 1.2 x 0.7 x 0.8 cm and 1.1 x 0.6 x 0.6 cm in size. No hydrocele or varicoceles. Overlying scrotal skin is normal in thickness. Left: Testicle is normal in size at 4.5 x 2.4 x 3.1 cm, and homogeneous in echotexture. Epididymis is normal in overall size and morphology. Left epididymal cyst measures 3 mm in size is seen. No hydrocele or varicoceles. Overlying scrotal skin is normal in thickness. Doppler: Color and pulse Doppler demonstrate normal and symmetric arterial flow in both testicles. IMPRESSION: 1. Bilateral epididymal cysts as above. No varicoceles or hydrocele. 2. Tiny calcification in right testes. No solid appearing testicular lesion. No evidence of testicular torsion. Dictated by: Amish Jc M.D. on 06/13/2022 at 15:50 Approved by: Amish Jc M.D. on 06/13/2022 at 15:51
[2022-06-13 14:58] LABS: BUN Creatinine Ratio 15.5 (6-22); Blood Urea Nitrogen 11 mg/dL (9-20); Calcium 9.6 mg/dL (8.4-10.2); Carbon Dioxide 28 mmol/L (22-32); Chloride 99 mmol/L (98-107); Estimated Glomerular Filt Rate > 60 mL/min (>60); Glucose 130 mg/dL (80-110); HEMOLYSIS < 15 (0-50); Potassium 3.9 mmol/L (3.4-5.1); Sodium 138 mmol/L (137-145)
== END ==
PROVIDERS: PCP Family Medicine; Referring Provider Family Medicine; Visit Provider Family Medicine
DX: N50.3 Cyst of epididymis (principal); L98.9 Disorder of the skin and subcutaneous tissue, unspecified; R42 Dizziness and giddiness; F10.11 Alcohol abuse, in remission; I10 Essential (primary) hypertension; R93.2 Abnormal findings on diagnostic imaging of liver and biliary tract; Z86.79 Personal history of other diseases of the circulatory system
CPT/HCPCS: 36415; 70496; 76870; 80048; Q9967

== ENCOUNTER → 2023-07-10 07:00 | Outpatient (CLI) | payer MEDICARE, OTHER, SELFPAY ==
[2023-07-10 07:52] LABS: Add Manual Diff / Slide Review NO; Basophils Absolute Auto 0 /uL (0-100); Basophils Percent Auto 0.6 % (0-2); Eosinophils Absolute Auto 200 /uL (0-450); Eosinophils Percent Auto 2.2 % (2-4); Hematocrit 43.7 % (41-53); Lymphocytes Absolute Auto 1400 /uL (1100-4500); Lymphocytes Percent Auto 20.7 % (25-40); Mean Corpuscular HGB Conc 34.4 % (30-36); Mean Corpuscular Hemoglobin 31.7 PG (26-34); Mean Corpuscular Volume 92.1 fL (80-100); Monocytes Absolute Auto 600 /uL (0-900); Monocytes Percent Auto 9.1 % (3-14); Neutrophils Absolute Auto 4700 /uL (1500-7000); Neutrophils Percent Auto 67.4 % (50-75); Platelet Count 126 X10^3/uL (150-400); Red Blood Cell Count 4.74 X10^6/uL (4.5-5.9); Red Cell Distribution Width 13.7 % (11.6-14.8); White Blood Cell Count 6.9 X10^3/uL (4.5-11.0)
[2023-07-10 08:12] LABS: Alanine Aminotransferase 45 IU/L (<50); Albumin 4.7 g/dL (3.5-5.0); Albumin Globulin Ratio 1.5 (1.0-2.8); Alkaline Phosphatase 136 U/L (38-126); Aspartate Aminotransferase 117 IU/L (17-59); BUN Creatinine Ratio 12.7 (6-22); Bilirubin Total 1.6 mg/dL (0.2-1.3); Blood Urea Nitrogen 7 mg/dL (9-20); Calcium 9.5 mg/dL (8.4-10.2); Carbon Dioxide 26 mmol/L (22-32); Chloride 99 mmol/L (98-107); Cholesterol 231 mg/dL (140-199); Estimated Glomerular Filt Rate > 60 mL/min (>60); Globulin 3.1 g/dL (1.7-4.1); Glucose 177 mg/dL (80-110); HDL Cholesterol 48 mg/dL (40-60); HEMOLYSIS < 15 (0-50); LDL Cholesterol Calculated 160 mg/dL (<100); Potassium 3.6 mmol/L (3.4-5.1); Sodium 134 mmol/L (137-145); Total Protein 7.8 g/dL (6.3-8.2); Triglycerides 116 mg/dL (35-150)
[2023-07-10 08:42] LABS: Prostate Specific Antigen Scrn 0.933 ng/mL (0.1-4.0)
== END ==
LOC: LAB 07:02
PROVIDERS: PCP Family Medicine; Referring Provider Family Medicine; Visit Provider Family Medicine
DX: Z12.5 Encounter for screening for malignant neoplasm of prostate (principal); E78.2 Mixed hyperlipidemia; I10 Essential (primary) hypertension; K70.9 Alcoholic liver disease, unspecified
CPT/HCPCS: 36415; 80053; 80061; 85025; G0103

== ENCOUNTER → 2023-07-18 06:57 | Outpatient (CLI) | payer MEDICARE, OTHER, SELFPAY ==
[2023-07-18 08:46] LABS: Alanine Aminotransferase 46 IU/L (<50); Albumin 4.4 g/dL (3.5-5.0); Albumin Globulin Ratio 1.5 (1.0-2.8); Alkaline Phosphatase 150 U/L (38-126); Aspartate Aminotransferase 117 IU/L (17-59); BUN Creatinine Ratio 11.7 (6-22); Blood Urea Nitrogen 7 mg/dL (9-20); Calcium 9.1 mg/dL (8.4-10.2); Carbon Dioxide 27 mmol/L (22-32); Chloride 100 mmol/L (98-107); Estimated Glomerular Filt Rate > 60 mL/min (>60); Glucose 162 mg/dL (80-110); HEMOLYSIS < 15 (0-50); Hemoglobin A1C% w Est Avg Glu 6.4 % (4.0-6.0); Potassium 3.8 mmol/L (3.4-5.1); Sodium 135 mmol/L (137-145); Total Protein 7.4 g/dL (6.3-8.2)
--- NOTE | 2023-07-18 10:07 | DI.US.S_ITS ---
PROCEDURE: US ABDOMEN LIMITED INDICATIONS: F/U highly echogenic liver TECHNIQUE: Real-time scanning was performed of the abdominal and retroperitoneal organs, with image documentation. COMPARISON: [facility], US, US ABDOMEN LIMITED, 08/12/2020, 9:06. FINDINGS: Liver: The liver measures 16.7 cm in length and demonstrates increased echogenicity. Findings are likely similar to the comparison ultrasound dated August 12, 2020. Gallbladder: The gallbladder wall measures up to 4 mm in diameter and appears mildly contracted. No pericholecystic fluid or sonographic Hardwick sign. Biliary ducts: Intrahepatic bile ducts are non-dilated. Extrahepatic bile duct caliber measures 2.9 mm. Normal is 6-7 mm or less in diameter, or 10 mm or less post-cholecystectomy. Pancreas: Visualized portions of the pancreas are sonographically normal. The tail the pancreas is not visualized. Miscellaneous: No free abdominal fluid. IMPRESSION: 1. Increased hepatic echogenicity noted likely related to fatty infiltration of the liver but other sources of hepatocellular disease cannot be excluded. 2. Mildly thickened gallbladder wall likely in the setting of contracted gallbladder. No other findings to suggest acute cholecystitis. No findings to suggest choledocholithiasis. Dictated by: Shi Whittaker M.D. on 07/18/2023 at 13:18 Approved by: Shi Whittaker M.D. on 07/18/2023 at 13:20
[2023-07-19 02:52] LABS: HBsAg Screen Negative (Negative); Hepatitis A Antibody IgM Negative (Negative); Hepatitis B Core Antibody IgM Negative (Negative); Hepatitis C Antibody Non Reactive (Non Reactive)
== END ==
LOC: US 06:58
PROVIDERS: PCP Family Medicine; Referring Provider Family Medicine; Visit Provider Family Medicine
DX: R74.8 Abnormal levels of other serum enzymes (principal); K70.9 Alcoholic liver disease, unspecified; F10.11 Alcohol abuse, in remission; R93.2 Abnormal findings on diagnostic imaging of liver and biliary tract; E78.2 Mixed hyperlipidemia; I10 Essential (primary) hypertension
CPT/HCPCS: 36415; 76705; 80053; 80074; 83036

== ENCOUNTER 2023-09-01 16:43 | Emergency (ER) | payer MEDICARE, SELFPAY ==
[2023-09-01 16:49] VITALS: BP 134/71; PULSE 80; RESP 17; TEMP 36.6; O2SAT 97; BMI 27.1
--- NOTE | 2023-09-01 16:54 | ED_ITS ---
HPI - Abdominal Pain <Juanjose Davis PA-C - Last Filed: 09/01/23 18:14> General Chief Complaint: Abdominal Pain Stated Complaint: constipated 5 days, etoh withdrawal 6 days Time Seen by Provider: 09/01/23 16:54 Source: patient Mode of arrival: Ambulatory History of Present Illness HPI narrative: This is a 63-year-old male presents emergency department due to constipation for the last 5 days. He was reporting a dull cramping abdominal sensation to his lower abdomen and just had a very small bowel movement prior to being seen. Reports 1 episode of vomiting earlier today. Denies any fevers, chills, URI symptoms, or any other concerning signs or symptoms. Related Data Previous Rx's Medication Instructions Recorded pantoprazole 20 mg tablet,delayed 20 mg PO DAILY #90 tabs 04/25/23 release lisinopril 20 1 tab PO DAILY #30 tabs 07/03/23 mg-hydrochlorothiazide 25 mg tablet meloxicam 15 mg tablet 15 mg PO DAILY #30 tabs 07/03/23 amlodipine 2.5 mg tablet 2.5 mg PO BEDTIME #90 tabs 07/17/23 pravastatin 20 mg tablet 20 mg PO BEDTIME #90 tabs 07/17/23 bupropion HCl 150 mg 24 hr tablet, 150 mg PO QAM #30 tabs 08/09/23 extended release bupropion HCl 75 mg tablet 75 mg PO DAILY #7 tabs 08/09/23 bisacodyl 10 mg rectal suppository 10 mg CA DAILY PRN constipation 09/01/23 #12 ea ondansetron HCl 4 mg tablet 4 mg PO Q8H PRN nausea and 09/01/23 vomiting #20 tabs polyethylene glycol 3350 17 17 g PO BID 10 days #340 grams 09/01/23 gram/dose oral powder (Miralax) sennosides 8.6 mg capsule (senna) 8.6 mg PO BID PRN constipation 10 09/01/23 days #20 caps Allergies Allergy/AdvReac Type Severity Reaction Status Date / Time celecoxib [From Celebrex] Allergy Severe SPASM Verified 08/09/23 15:23 Review of Systems <Juanjose Davis PA-C - Last Filed: 09/01/23 18:14> Review of Systems Narrative: GENERAL: Denies chills, fatigue, malaise, fever, sweats. HEENT: Denies sinus pain, ear pain, sore throat, difficulty swallowing, dizziness. RESPIRATORY: Denies dyspnea, cough, wheezing, hemoptysis, sputum. CARDIOVASCULAR: Denies chest pain, palpitations, orthopnea, edema, GASTROINTESTINAL: Reports constipation nausea, vomiting, abdominal pain, denies diarrhea, , melena. : Denies dysuria, frequency, incontinence, hematuria, urinary retention. MUSCULOSKELETAL: denies weakness, joint pain, or bony pain SKIN: Denies rash, skin lesions, or other NEUROLOGIC: Denies weakness, headache, numbness, change in speech, confusion, seizures, incoordination. PSYCHIATRIC: No concerning psychosocial issues. 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) Highly echogenic liver on ultrasound (07/2020) Low back pain Alcohol abuse Elevated liver enzymes Mixed hyperlipidemia Rectal bleeding (02/18/19) Vision disorder Pneumothorax (~2013) Shoulder pain Fractures Measles Chicken pox Cataracts, bilateral Varicocele (2001) Hypertension Family History Father Cancer Social History Smoking Status: Never smoker second hand exposure: Yes alcohol intake: current substance use type: does not use Smoking Status: Never smoker alcohol intake frequency: 3 or more drinks per day Substance Use Type: does not use Exam <Juanjose Davis PA-C - Last Filed: 09/01/23 18:14> Narrative Exam Narrative: GENERAL: Well-developed patient, in mild distress. HEAD: Atraumatic. Normocephalic. EYES: Pupils equal round and reactive. Extraocular motions intact. No scleral icterus. No injection or drainage. ENT: Nose without bleeding, purulent drainage. Throat without erythema, tonsillar hypertrophy or exudate. Airway patent. NECK: Trachea midline. Non tender EXTREMITIES: No edema or joint tenderness. NEURO: AOx3. SKIN: No rash or erythema of visible areas Abdomen,: Lower abdominal tenderness to palpation Initial Vital Signs Initial Vital Signs: Vital Signs Temperature 98 F 09/01/23 16:49 Pulse Rate 80 09/01/23 16:49 Respiratory Rate 17 09/01/23 16:49 Blood Pressure 134/71 09/01/23 16:49 Pulse Oximetry 97 09/01/23 16:49 Oxygen Delivery Method Room Air 09/01/23 16:49 <Ely Hull DO - Last Filed: 09/01/23 19:11> Initial Vital Signs Initial Vital Signs: Vital Signs Temperature 98 F 09/01/23 16:49 Pulse Rate 80 09/01/23 16:49 Respiratory Rate 17 09/01/23 16:49 Blood Pressure 134/71 09/01/23 16:49 Pulse Oximetry 97 09/01/23 16:49 Oxygen Delivery Method Room Air 09/01/23 16:49 Course <Juanjose Davis PA-C - Last Filed: 09/01/23 18:14> Orders Ordered: Discontinued Medications Ondansetron HCl (Ondansetron 4 Mg Odt) 4 mg SL NOW ONE Stop: 09/01/23 18:21 Last Admin: 09/01/23 18:25 Dose: 4 mg Documented By: ADAMA Sodium Biphosphate/Sodium Phosphate (Fleets Enema) 1 each CA NOW ONE Stop: 09/01/23 17:41 Vital Signs Vital signs: Vital Signs - 8 hr 09/01/23 16:49 09/01/23 18:32 Temperature 98 F Pulse Rate 80 71 Respiratory Rate 17 16 Blood Pressure 134/71 146/76 H Pulse Oximetry 97 94 Oxygen Delivery Method Room Air Room Air <DO Aly Mcclelland Last Filed: 09/01/23 19:11> Orders Ordered: Discontinued Medications Ondansetron HCl (Ondansetron 4 Mg Odt) 4 mg SL NOW ONE Stop: 09/01/23 18:21 Last Admin: 09/01/23 18:25 Dose: 4 mg Documented By: ADAMA Sodium Biphosphate/Sodium Phosphate (Fleets Enema) 1 each CA NOW ONE Stop: 09/01/23 17:41 Vital Signs Vital signs: Vital Signs - 8 hr 09/01/23 16:49 09/01/23 18:32 Temperature 98 F Pulse Rate 80 71 Respiratory Rate 17 16 Blood Pressure 134/71 146/76 H Pulse Oximetry 97 94 Oxygen Delivery Method Room Air Room Air MDM - Abdominal Pain <Juanjose Davis PA-C - Last Filed: 09/01/23 18:14> MDM Narrative Medical decision making narrative: ED course: This is a 63-year-old male presents to the emergency department due to constipation for the last 5 days. He was not presenting with any significant sharp abdominal pain and has been passing gas and habits have been having small bowel movements and low concern for any kind of small bowel obstruction. Patient was given an enema which helped to release a small amount of feces as well. Shared decision-making utilized and the patient was be discharged with 3 different laxatives, MiraLax, senna, bisacodyl suppository. CC: Constipation Complicating co-morbidities: Alcoholism Data collected from: Previous notes Medical records reviewed: Patient was last seen in the emergency department 3 years ago due to upper GI bleed. History of alcoholism and hypertension presenting for hematemesis history of alcohol abuse, eventually transferred to [facility]. Differential considered, but not limited to: Constipation, small-bowel obstruction Exam documented above, pertinent findings include: Mild generalized tenderness to palpation Lab Test results independently reviewed as above. Pertinent findings: None obtained Imaging studies independently reviewed: None obtained Scores Used: None MIPS Elements: None Consultations: None Treatments: Fleet enema Re-evaluations: Patient reports releasing a small amount of stool after the enema Discussion: Discussed plan with the patient was comfortable with the plan Diagnosis: Constipation Disposition: see below, along with detailed discharge instructions that have been reviewed with patient as well as indications for ED re-evaluation and additional outpatient follow up Discharge Plan Departure Patient Disposition: Home Clinical Impression: Constipation Instructions: DI for Constipation Activity Restrictions/Additional Instructions: Thank you for coming to the [facility] Emergency Department today. Please take the oral medications as prescribed in the should help you have bowel movement. Please return to the emergency department if you develop any significant sharp abdominal pain, inability to pass gas, significant vomiting, or any other concerning signs or symptoms. I hope you feel better soon. Please follow up with your primary care provider within a week if your symptoms continue. If you do not have a primary care provider please contact the [facility] Resource line at [phone]. They will ask some questions about your medical history and help you get set up with a provider in the community. Prescriptions: New polyethylene glycol 3350 [Miralax] 17 gram/dose powder 17 g PO BID 10 Days Qty: 340 0RF senna 8.6 mg capsule 8.6 mg PO BID PRN (Reason: constipation) 10 Days Qty: 20 0RF bisacodyl 10 mg suppository 10 mg CA DAILY PRN (Reason: constipation) Qty: 12 0RF ondansetron HCl 4 mg tablet 4 mg PO Q8H PRN (Reason: nausea and vomiting) Qty: 20 0RF No Action pantoprazole 20 mg tablet,delayed release (DR/EC) 20 mg PO DAILY Qty: 90 3RF lisinopril-hydrochlorothiazide 20-25 mg tablet 1 tab PO DAILY Qty: 30 0RF meloxicam 15 mg tablet 15 mg PO DAILY Qty: 30 0RF Rx Instructions: DUE FOR APPT WITH PCP pravastatin 20 mg tablet 20 mg PO BEDTIME Qty: 90 3RF amlodipine 2.5 mg tablet 2.5 mg PO BEDTIME Qty: 90 1RF bupropion HCl 75 mg tablet 75 mg PO DAILY Qty: 7 0RF Rx Instructions: take for 7 days bupropion HCl 150 mg tablet extended release 24 hr 150 mg PO QAM Qty: 30 1RF Rx Instructions: continue after 75 mg Referrals: Jean Taylor DO [Primary Care Provider] - Stand Alone Forms: Patient Portal/API ED Sign-out <Ely Hull DO - Last Filed: 09/01/23 19:11> Cosign ED Attending Nate Attestation: I was immediately available in the department for consultation.
[2023-09-01] MEDS: ONDANSETRON 4 MG ODT SL (18:25)
[2023-09-01 18:32] VITALS: BP 146/76; PULSE 71; RESP 16; O2SAT 94
== END 2023-09-01 18:34 | disposition home or self-care (01) ==
PROVIDERS: Emergency Provider Physician Assistant Medical; PCP Family Medicine
DX: K59.00 Constipation, unspecified (principal)
CPT/HCPCS: 99283

== ENCOUNTER 2023-11-19 09:11 | Emergency (ER) | payer MEDICARE, SELFPAY ==
[2023-11-19] VITALS (7 sets, daily range): BP systolic 144–165; BP diastolic 71–83; PULSE 77–93; RESP 13–18; TEMP 36.9; O2SAT 91–97; BMI 27.3
--- NOTE | 2023-11-19 09:24 | ED_ITS ---
HPI - Abdominal Pain General Chief Complaint: Abdominal Pain Stated Complaint: lower abd pain, constipation t-4 Time Seen by Provider: 11/19/23 09:24 Source: patient Mode of arrival: Ambulatory History of Present Illness HPI narrative: Patient is 63-year-old male with past medical history of hypertension comes into the ED from home for evaluation of abdominal pain nausea and constipation. Ongoing persistent for the past 4 days, states that he has been able tolerate p.o. liquids and solids but has not had a bowel movement in approximately 4 days. No history of surgeries, denies any trauma or falls. Has tried milk of magnesia and MiraLax yesterday without any relief. Related Data Previous Rx's Medication Instructions Recorded pantoprazole 20 mg tablet,delayed 20 mg PO DAILY #90 tabs 04/25/23 release amlodipine 2.5 mg tablet 2.5 mg PO BEDTIME #90 tabs 07/17/23 pravastatin 20 mg tablet 20 mg PO BEDTIME #90 tabs 07/17/23 bupropion HCl 150 mg 24 hr tablet, 150 mg PO QAM #30 tabs 08/09/23 extended release bupropion HCl 75 mg tablet 75 mg PO DAILY #7 tabs 08/09/23 bisacodyl 10 mg rectal suppository 10 mg AL DAILY PRN constipation 09/01/23 #12 ea ondansetron HCl 4 mg tablet 4 mg PO Q8H PRN nausea and 09/01/23 vomiting #20 tabs lisinopril 20 1 tab PO DAILY #90 tabs 09/12/23 mg-hydrochlorothiazide 25 mg tablet meloxicam 15 mg tablet 15 mg PO DAILY #90 tabs 09/12/23 amoxicillin 875 mg-potassium 1 tab PO BID 5 days #10 tabs 11/19/23 clavulanate 125 mg tablet Allergies Allergy/AdvReac Type Severity Reaction Status Date / Time celecoxib [From Celebrex] Allergy Severe SPASM Verified 11/19/23 09:18 Review of Systems Review of Systems Narrative: HEENT: Denies headache, eye drainage, eye irritation, head trauma, sore throat, voice change Cardiovascular: Denies any chest pain, palpitations, shortness of breath, tachycardia Respiratory: Denies any shortness of breath, cough, wheeze, stridor GI/: Denies any vomiting, diarrhea, bright red blood per rectum, melanotic stools, urinary frequency, urinary retention, dysuria, hematuria, positive for constipation abdominal pain nausea MSK: Denies any joint pain, muscle pains, swelling Skin: Denies any rashes, lesions, discoloration Neuro: Denies any headache, lightheadedness, dizziness, fainting, weakness Psych: Denies SI/HI Patient History Medical History (Updated 11/19/23 @ 11:36 by Nico Lawler DO) Anxiety Skin lesions GERD (gastroesophageal reflux disease) History of varicocele Sebaceous cyst Dizziness after extension of neck Plantar fasciitis, bilateral Herniated nucleus pulposus, L5-S1, right Herniated nucleus pulposus, L3-4 right Alcoholic liver disease Alcohol abuse, 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) Nocturia Thrombophlebitis 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) Highly echogenic liver on ultrasound (07/2020) Low back pain Alcohol abuse Elevated liver enzymes Mixed hyperlipidemia Rectal bleeding (02/18/19) Vision disorder Pneumothorax (~2013) Shoulder pain Fractures Measles Chicken pox Cataracts, bilateral Varicocele (2001) Hypertension Family History Father Cancer Social History Smoking Status: Never smoker second hand exposure: Yes alcohol intake: current substance use type: does not use Smoking Status: Never smoker alcohol intake frequency: 3 or more drinks per day Substance Use Type: does not use Exam Narrative Exam Narrative: General: Cooperative, comfortable, well-developed, not in acute distress HEENT: Normocephalic, atraumatic, PERRLA, normal sclera, eyelids normal, Neck: Active full range of motion, atraumatic Chest: Normal to inspection, negative crepitus, no overlying erythema ecchymosis Respiratory: Normal respiratory effort, not in acute respiratory distress, clear to auscultation bilaterally negative cough, wheeze, tachypnea, rhonchi, rales Cardiology: Regular rate rhythm negative gallop, murmur, rubs GI/: Normal to inspection, soft, nonrigid, mild tenderness to palpation to lower abdomen exam deferred MSK: Full range of active range of motion of all 4 extremities, atraumatic Skin: No rashes lesions noted Neuro: Alert awake oriented x3, moves all 4 extremities spontaneously, cranial nerves intact, able to answer all questions appropriately follows commands appropriately Psych: Cooperative, negative suicidal or homicidal ideations Initial Vital Signs Initial Vital Signs: Vital Signs Temperature 98.4 F 11/19/23 09:13 Pulse Rate 93 H 11/19/23 09:13 Respiratory Rate 18 11/19/23 09:13 Blood Pressure 165/78 H 11/19/23 09:13 Pulse Oximetry 97 11/19/23 09:13 Oxygen Delivery Method Room Air 11/19/23 09:13 Course Orders Ordered: ED Orders 11/19/23 09:25 Complete Blood Count AUTO DIFF Stat Comprehensive Metabolic Panel Stat Lactate (Lactic Acid) Stat Lipase Stat MAG [Magnesium] Stat 11/19/23 09:27 CT abdomen pelvis w con Stat Discontinued Medications Amoxicillin/Clavulanate Potassium (Amoxicillin/Clav 875/125 Mg) 1 tab PO NOW ONE Stop: 11/19/23 11:34 Sodium Chloride (Normal Saline 0.9%) 1,000 mls @ 1,000 mls/hr IV BOLUS ONE Stop: 11/19/23 10:26 Last Infusion: 11/19/23 10:32 Dose: Infused Documented By: Admin: 11/19/23 09:47 Dose: 1,000 mls/hr Documented By: ADAMA Vital Signs Vital signs: Vital Signs - 8 hr 11/19/23 09:13 11/19/23 09:38 11/19/23 09:38 Temperature 98.4 F Pulse Rate 93 H 80 Respiratory Rate 18 Blood Pressure 165/78 H 144/71 H Pulse Oximetry 97 91 Oxygen Delivery Method Room Air 11/19/23 10:00 11/19/23 10:00 11/19/23 10:30 Temperature Pulse Rate 77 Respiratory Rate 13 Blood Pressure 146/77 H 155/83 H Pulse Oximetry 92 Oxygen Delivery Method 11/19/23 10:30 11/19/23 11:12 11/19/23 11:13 Temperature Pulse Rate 78 80 Respiratory Rate 16 Blood Pressure 159/81 H Pulse Oximetry 92 95 Oxygen Delivery Method 11/19/23 11:13 Temperature Pulse Rate 78 Respiratory Rate Blood Pressure Pulse Oximetry 92 Oxygen Delivery Method MDM - Abdominal Pain Lab Data 11/19/23 09:25 11/19/23 09:25 Labs: Lab Results 11/19/23 Range/Units 09:25 WBC 7.1 (4.5-11.0) X10^3/uL RBC 4.91 (4.5-5.9) X10^6/uL Hgb 14.7 (13.5-17.5) g/dL Hct 43.6 (41-53) % MCV 88.9 (80-100) fL MCH 30.1 (26-34) PG MCHC 33.8 (30-36) % RDW 14.7 (11.6-14.8) % Plt Count 156 (150-400) X10^3/uL Neut % (Auto) 71.5 (50-75) % Lymph % (Auto) 15.0 L (25-40) % Haines % (Auto) 11.4 (3-14) % Eos % (Auto) 1.4 L (2-4) % Baso % (Auto) 0.7 (0-2) % Neut # (Auto) 5100 (0105-9426) /uL Lymph # (Auto) 1100 (6501-6555) /uL Haines # (Auto) 800 (0-900) /uL Eos # (Auto) 100 (0-450) /uL Baso # (Auto) 0 (0-100) /uL Sodium 129 L (137-145) mmol/L Potassium 4.0 (3.4-5.1) mmol/L Chloride 95 L (98-107) mmol/L Carbon Dioxide 23 (22-32) mmol/L BUN 9 (9-20) mg/dL Creatinine 0.55 L (0.66-1.25) mg/dL Estimated GFR > 60 (>60) mL/min BUN/Creatinine Ratio 16.4 (6-22) Glucose 172 H (80-110) mg/dL Lactate 1.4 (0.7-2.1) mmol/L Calcium 9.5 (8.4-10.2) mg/dL Magnesium 2.4 H (1.6-2.3) mg/dL Total Bilirubin 2.1 H (0.2-1.3) mg/dL AST 84 H (17-59) IU/L ALT 37 (<50) IU/L Alkaline Phosphatase 157 H (38-126) U/L Total Protein 8.7 H (6.3-8.2) g/dL Albumin 4.7 (3.5-5.0) g/dL Globulin 4.0 (1.7-4.1) g/dL Albumin/Globulin Ratio 1.2 (1.0-2.8) Lipase 128 (23-300) U/L Point of care testing: Urine Dip Bedside Urine Glucose Negative Bedside Urine Bilirubin - Negative Bedside Urine Ketone +/- 5 Urine Specific [place] 1.010 Bedside Urine Occult Blood - Negative Bedside Urine pH 7.5 Bedside Urine Protein - Negative Bedside Urine Urobilinogen +/- 1mg Bedside Urine Nitrite - Negative Bedside Urine Leukocytes - Negative Esterase Imaging Data CT scan - abdomen/pelvis: Radiologist's Impression: PROCEDURE: CT ABDOMEN PELVIS W CON INDICATIONS: abd pain, constipation TECHNIQUE: After the administration of intravenous contrast, axial sections acquired from the lung bases to the pubic symphysis. Coronal and sagittal reformats were performed. For radiation dose reduction, the following was used: automated exposure control, adjustment of mA and/or kV according to patient size. COMPARISON: [facility], CT, CT ABDOMEN PELVIS W CON, 08/23/2020, 10:32. FINDINGS: Image quality: Diagnostic. Lower Chest: No significant findings. ABDOMEN: Liver: No solid mass. Cirrhotic change. Mild diffuse hepatic steatosis. Previous small low-density liver lesion in segment 4 is not identified, possibly secondary to differences in technique. Gallbladder: No radiopaque gallstones or wall thickening. Biliary ducts: No biliary dilation. Pancreas: No ductal dilation. Spleen: Size is within normal limits. Adrenal Glands: No adrenal nodules. Kidneys and Ureters: No hydronephrosis. No solid mass. No complex renal cystic lesion which requires follow up. Stomach and Bowel: Relatively advanced diverticulosis the proximal rectum and sigmoid with probable mild diverticulitis involving the distal sigmoid/proximal rectum. No free air or abscess. No free fluid. Peritoneum: No abnormal intraperitoneal fluid. No free air. Ventral Wall: No significant ventral hernia. Abdominal Nodes: No retroperitoneal or mesenteric adenopathy by size criteria. Vessels: Aorta and inferior vena cava are normal in size. PELVIS: Pelvic Organs: Unremarkable. Bladder: No bladder wall thickening, accounting for underdistention. Pelvic Nodes: No enlarged lymph nodes. Miscellaneous: Small left inguinal hernia containing fat. Bones: No aggressive osseous abnormality. IMPRESSION: Underlying advanced diverticulosis with mild superimposed acute diverticulitis. Cirrhosis, mild diffuse hepatic steatosis.. MDM Narrative Medical decision making narrative: Patient is a 63-year-old male with past medical history of hypertension comes into the ED from home for abdominal pain constipation nausea no vomiting for the past few days. Lab work without any signs of leukocytosis no small bowel obstruction on CT scan however CT scan showing mild diverticulitis without abscess or perforation. Patient afebrile, patient will be sent home with oral antibiotics and instructed to follow up with GI and PCP. Strict return precautions were given safe for discharge home with outpatient follow-up Discharge Plan Departure Patient Disposition: Home Clinical Impression: Diverticulitis Activity Restrictions/Additional Instructions: Please follow up with GI and PCP Please read the discharge instructions sheet carefully and bring all papers to all doctor follow-up visits, as it may contain information that your doctor may want to see. Disease processes change and evolve, if your symptoms worsen or if you develop any new symptoms that are concerning to you please return for evaluation. Your evaluation today does not show any evidence of any life- threatening/serious illnesses requiring admission to the hospital or surgery. Please follow-up with your doctor for re-evaluation in approximately 1 day. Seek immediate medical attention for any worrisome symptoms. Prescriptions: New amoxicillin-pot clavulanate 875-125 mg tablet 1 tab PO BID 5 Days Qty: 10 0RF No Action pantoprazole 20 mg tablet,delayed release (DR/EC) 20 mg PO DAILY Qty: 90 3RF lisinopril-hydrochlorothiazide 20-25 mg tablet 1 tab PO DAILY Qty: 90 1RF meloxicam 15 mg tablet 15 mg PO DAILY Qty: 90 1RF pravastatin 20 mg tablet 20 mg PO BEDTIME Qty: 90 3RF amlodipine 2.5 mg tablet 2.5 mg PO BEDTIME Qty: 90 1RF bupropion HCl 75 mg tablet 75 mg PO DAILY Qty: 7 0RF Rx Instructions: take for 7 days bupropion HCl 150 mg tablet extended release 24 hr 150 mg PO QAM Qty: 30 1RF Rx Instructions: continue after 75 mg bisacodyl 10 mg suppository 10 mg AL DAILY PRN (Reason: constipation) Qty: 12 0RF ondansetron HCl 4 mg tablet 4 mg PO Q8H PRN (Reason: nausea and vomiting) Qty: 20 0RF Referrals: Jean Taylor, [Primary Care Provider] - Stand Alone Forms: Patient Portal/API
--- NOTE | 2023-11-19 09:27 | DI.CT.S_ITS ---
PROCEDURE: CT ABDOMEN PELVIS W CON INDICATIONS: abd pain, constipation TECHNIQUE: After the administration of intravenous contrast, axial sections acquired from the lung bases to the pubic symphysis. Coronal and sagittal reformats were performed. For radiation dose reduction, the following was used: automated exposure control, adjustment of mA and/or kV according to patient size. COMPARISON: [facility], CT, CT ABDOMEN PELVIS W CON, 08/23/2020, 10:32. FINDINGS: Image quality: Diagnostic. Lower Chest: No significant findings. ABDOMEN: Liver: No solid mass. Cirrhotic change. Mild diffuse hepatic steatosis. Previous small low-density liver lesion in segment 4 is not identified, possibly secondary to differences in technique. Gallbladder: No radiopaque gallstones or wall thickening. Biliary ducts: No biliary dilation. Pancreas: No ductal dilation. Spleen: Size is within normal limits. Adrenal Glands: No adrenal nodules. Kidneys and Ureters: No hydronephrosis. No solid mass. No complex renal cystic lesion which requires follow up. Stomach and Bowel: Relatively advanced diverticulosis the proximal rectum and sigmoid with probable mild diverticulitis involving the distal sigmoid/proximal rectum. No free air or abscess. No free fluid. Peritoneum: No abnormal intraperitoneal fluid. No free air. Ventral Wall: No significant ventral hernia. Abdominal Nodes: No retroperitoneal or mesenteric adenopathy by size criteria. Vessels: Aorta and inferior vena cava are normal in size. PELVIS: Pelvic Organs: Unremarkable. Bladder: No bladder wall thickening, accounting for underdistention. Pelvic Nodes: No enlarged lymph nodes. Miscellaneous: Small left inguinal hernia containing fat. Bones: No aggressive osseous abnormality. IMPRESSION: Underlying advanced diverticulosis with mild superimposed acute diverticulitis. Cirrhosis, mild diffuse hepatic steatosis.. Dictated by: Enio Rueda M.D. on 11/19/2023 at 11:09 Approved by: Enio Rueda M.D. on 11/19/2023 at 11:21
[2023-11-19 09:38] LABS: Add Manual Diff / Slide Review NO; Basophils Absolute Auto 0 /uL (0-100); Basophils Percent Auto 0.7 % (0-2); Eosinophils Absolute Auto 100 /uL (0-450); Eosinophils Percent Auto 1.4 % (2-4); Hematocrit 43.6 % (41-53); Hemoglobin 14.7 g/dL (13.5-17.5); Lymphocytes Absolute Auto 1100 /uL (1100-4500); Mean Corpuscular HGB Conc 33.8 % (30-36); Mean Corpuscular Hemoglobin 30.1 PG (26-34); Mean Corpuscular Volume 88.9 fL (80-100); Monocytes Absolute Auto 800 /uL (0-900); Monocytes Percent Auto 11.4 % (3-14); Neutrophils Absolute Auto 5100 /uL (1500-7000); Neutrophils Percent Auto 71.5 % (50-75); Platelet Count 156 X10^3/uL (150-400); Red Blood Cell Count 4.91 X10^6/uL (4.5-5.9); Red Cell Distribution Width 14.7 % (11.6-14.8); White Blood Cell Count 7.1 X10^3/uL (4.5-11.0)
[2023-11-19 09:44] LABS: Alanine Aminotransferase 37 IU/L (<50); Albumin 4.7 g/dL (3.5-5.0); Albumin Globulin Ratio 1.2 (1.0-2.8); Alkaline Phosphatase 157 U/L (38-126); Aspartate Aminotransferase 84 IU/L (17-59); BUN Creatinine Ratio 16.4 (6-22); Bilirubin Total 2.1 mg/dL (0.2-1.3); Blood Urea Nitrogen 9 mg/dL (9-20); Calcium 9.5 mg/dL (8.4-10.2); Carbon Dioxide 23 mmol/L (22-32); Chloride 95 mmol/L (98-107); Estimated Glomerular Filt Rate > 60 mL/min (>60); Glucose 172 mg/dL (80-110); HEMOLYSIS 32 (0-50); Lactate (Lactic Acid) 1.4 mmol/L (0.7-2.1); Lipase 128 U/L (23-300); Magnesium 2.4 mg/dL (1.6-2.3); Sodium 129 mmol/L (137-145); Total Protein 8.7 g/dL (6.3-8.2)
[2023-11-19] MEDS: SODIUM CHLORIDE 0.9% 1,000 ML 1000 ML IV (09:47)
[2023-11-19] MEDS: AMOXICILLIN/CLAV 875/125 MG 1 TAB PO (11:43)
== END 2023-11-19 12:10 | disposition home or self-care (01) ==
PROVIDERS: Emergency Provider Student in an Organized Health Care Education/Training Program; PCP Family Medicine
DX: K57.92 Diverticulitis of intestine, part unspecified, without perforation or abscess without bleeding (principal); R11.2 Nausea with vomiting, unspecified; I10 Essential (primary) hypertension
CPT/HCPCS: 36415; 74177; 80053; 81003; 83605; 83690; 83735; 85025; 96360; 99284; Q9967

== ENCOUNTER → 2023-11-27 06:58 | Outpatient (CLI) | payer MEDICARE, SELFPAY ==
[2023-11-27 08:42] LABS: Sodium 135 mmol/L (137-145)
== END ==
PROVIDERS: PCP Family Medicine; Referring Provider Physician Assistant; Visit Provider Physician Assistant
DX: E87.1 Hypo-osmolality and hyponatremia (principal)
CPT/HCPCS: 36415; 84295

== ENCOUNTER 2024-01-11 06:47 | Emergency (ER) | payer MEDICARE, SELFPAY ==
[2024-01-11] VITALS (8 sets, daily range): BP systolic 166–191; BP diastolic 89–94; PULSE 76–89; RESP 16–17; TEMP 36.9; O2SAT 92–100; BMI 27.0
--- NOTE | 2024-01-11 06:55 | ED_ITS ---
HPI - Abdominal Pain <Ely Morrow MD - Last Filed: 01/11/24 19:51> General Chief Complaint: Abdominal Pain Stated Complaint: diverticulitis Time Seen by Provider: 01/11/24 06:49 History of Present Illness HPI narrative: 63-year-old male with history of alcohol-related cirrhosis, hypertension, diverticulitis presents by private vehicle from home for 8 days of abdominal pain and constipation. Patient was seen at the walk-in clinic on 01/08, he was discharged with Zofran, ciprofloxacin, and metronidazole. Patient states that he was not feel any better and he was still been unable to have a bowel movement despite numerous doses of miralax. He states that every time he tries to go to the bathroom a ?white milky substance? comes out. He says he feels like when he was diagnosed with diverticulitis back in October. Patient states that he has taken the metronidazole and ciprofloxacin twice, saying that he thought the medicines were only once per day dosing Related Data Previous Rx's Medication Instructions Recorded pantoprazole 20 mg tablet,delayed 20 mg PO DAILY #90 tabs 04/25/23 release losartan 50 mg tablet 50 mg PO DAILY #90 tabs 12/24/23 meloxicam 15 mg tablet 15 mg PO DAILY #90 tabs 12/24/23 ciprofloxacin HCl 500 mg tablet 500 mg PO Q12H 10 days #20 tabs 01/09/24 metronidazole 500 mg tablet 500 mg PO Q8H 10 days #30 tabs 01/09/24 ondansetron 4 mg disintegrating 4 mg PO Q6H PRN nausea and 01/09/24 tablet vomiting 7 days #21 tabs Allergies Allergy/AdvReac Type Severity Reaction Status Date / Time celecoxib [From Celebrex] Allergy Severe SPASM Verified 01/09/24 07:15 amoxicillin Allergy Intermediate Swelling Verified 01/09/24 07:16 of Lip/Tongue/Throat hydrochlorothiazide AdvReac Intermediate hyponatremi Verified 01/09/24 07:15 a lisinopril AdvReac Mild angiodema Verified 01/09/24 07:15 (lips) Patient History <Ely Morrow MD - Last Filed: 01/11/24 19:51> Medical History Anxiety Skin lesions GERD (gastroesophageal reflux disease) History of varicocele Sebaceous cyst Dizziness after extension of neck Plantar fasciitis, bilateral Herniated nucleus pulposus, L5-S1, right Herniated nucleus pulposus, L3-4 right Alcoholic liver disease Alcohol abuse, 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) Nocturia Thrombophlebitis 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) Highly echogenic liver on ultrasound (07/2020) Low back pain Alcohol abuse Elevated liver enzymes Mixed hyperlipidemia Rectal bleeding (02/18/19) Vision disorder Pneumothorax (~2013) Shoulder pain Fractures Measles Chicken pox Cataracts, bilateral Varicocele (2001) Hypertension Family History Father Cancer Social History Smoking Status: Never smoker second hand exposure: Yes alcohol intake: current substance use type: does not use Smoking Status: Never smoker alcohol intake frequency: 3 or more drinks per day Substance Use Type: does not use Exam <Ely Morrow MD - Last Filed: 01/11/24 19:51> Initial Vital Signs Initial Vital Signs: Vital Signs Temperature 98.5 F 01/11/24 06:53 Pulse Rate 88 01/11/24 06:53 Respiratory Rate 17 01/11/24 06:53 Blood Pressure 191/94 H 01/11/24 06:53 Pulse Oximetry 97 01/11/24 06:53 Oxygen Delivery Method Room Air 01/11/24 06:53 Const: Awake, alert, appears chronically unwell Cardiac: regular rate, regular rhythm RESP: unlabored, clear bilaterally, no wheezing GI: Soft, moderate distention, left lower quadrant tenderness to palpation, no rebound or guarding Skin: Warm, Dry, intact, no rashes Neuro: AO x3, CN II-XII grossly intact, moves all extremities <Deng Tubbs DO - Last Filed: 01/11/24 08:27> Initial Vital Signs Initial Vital Signs: Vital Signs Temperature 98.5 F 01/11/24 06:53 Pulse Rate 88 01/11/24 06:53 Respiratory Rate 17 01/11/24 06:53 Blood Pressure 191/94 H 01/11/24 06:53 Pulse Oximetry 97 01/11/24 06:53 Oxygen Delivery Method Room Air 01/11/24 06:53 Course <Ely Morrow MD - Last Filed: 01/11/24 19:51> Orders Ordered: Discontinued Medications Folic Acid (Folic Acid 1 Mg Tablet) 1 mg PO NOW ONE Stop: 01/11/24 06:54 Last Admin: 01/11/24 07:22 Dose: 1 mg Documented By: JOSE Sodium Chloride (Normal Saline 0.9%) 1,000 mls @ 1,000 mls/hr IV BOLUS ONE Stop: 01/11/24 07:52 Last Infusion: 01/11/24 08:47 Dose: Infused Documented By: Admin: 01/11/24 07:21 Dose: 1,000 mls/hr Documented By: JOSE Thiamine HCl 200 mg/ Sodium (Chloride) 102 mls @ 408 mls/hr IV NOW ONE Stop: 01/11/24 06:54 Last Infusion: 01/11/24 07:40 Dose: Infused Documented By: Admin: 01/11/24 07:21 Dose: 408 mls/hr Documented By: JOSE Lactulose (Lactulose 20 Gm/30 Ml Solution) 40 gm PO NOW ONE Stop: 01/11/24 06:54 Last Admin: 01/11/24 07:22 Dose: 40 gm Documented By: JOSE Vital Signs Vital signs: Vital Signs - 8 hr 01/11/24 06:53 Temperature 98.5 F Pulse Rate 88 Respiratory Rate 17 Blood Pressure 191/94 H Pulse Oximetry 97 Oxygen Delivery Method Room Air <Deng Tubbs DO - Last Filed: 01/11/24 08:27> Orders Ordered: Discontinued Medications Folic Acid (Folic Acid 1 Mg Tablet) 1 mg PO NOW ONE Stop: 01/11/24 06:54 Last Admin: 01/11/24 07:22 Dose: 1 mg Documented By: JOSE Sodium Chloride (Normal Saline 0.9%) 1,000 mls @ 1,000 mls/hr IV BOLUS ONE Stop: 01/11/24 07:52 Last Infusion: 01/11/24 08:47 Dose: Infused Documented By: Admin: 01/11/24 07:21 Dose: 1,000 mls/hr Documented By: JOSE Thiamine HCl 200 mg/ Sodium (Chloride) 102 mls @ 408 mls/hr IV NOW ONE Stop: 01/11/24 06:54 Last Infusion: 01/11/24 07:40 Dose: Infused Documented By: Admin: 01/11/24 07:21 Dose: 408 mls/hr Documented By: JOSE Lactulose (Lactulose 20 Gm/30 Ml Solution) 40 gm PO NOW ONE Stop: 01/11/24 06:54 Last Admin: 01/11/24 07:22 Dose: 40 gm Documented By: JOSE Vital Signs Vital signs: Vital Signs - 8 hr 01/11/24 06:53 Temperature 98.5 F Pulse Rate 88 Respiratory Rate 17 Blood Pressure 191/94 H Pulse Oximetry 97 Oxygen Delivery Method Room Air MDM - Abdominal Pain <Ely Morrow MD - Last Filed: 01/11/24 19:51> Lab Data 01/11/24 07:01 01/11/24 07:01 Labs: Lab Results 01/11/24 Range/Units 07:01 WBC 9.5 (4.5-11.0) X10^3/uL RBC 4.73 (4.5-5.9) X10^6/uL Hgb 14.4 (13.5-17.5) g/dL Hct 42.3 (41-53) % MCV 89.5 (80-100) fL MCH 30.4 (26-34) PG MCHC 34.0 (30-36) % RDW 16.7 H (11.6-14.8) % Plt Count 142 L (150-400) X10^3/uL Neut % (Auto) 73.2 (50-75) % Lymph % (Auto) 14.2 L (25-40) % Lawrence % (Auto) 6.6 (3-14) % Eos % (Auto) 2.9 (2-4) % Baso % (Auto) 3.1 H (0-2) % Neut # (Auto) 7000 (9309-7427) /uL Lymph # (Auto) 1300 (7142-4225) /uL Lawrence # (Auto) 600 (0-900) /uL Eos # (Auto) 300 (0-450) /uL Baso # (Auto) 300 H (0-100) /uL Sodium 138 (137-145) mmol/L Potassium 3.6 (3.4-5.1) mmol/L Chloride 103 (98-107) mmol/L Carbon Dioxide 20 L (22-32) mmol/L BUN 9 (9-20) mg/dL Creatinine 0.62 L (0.66-1.25) mg/dL Estimated GFR > 60 (>60) mL/min BUN/Creatinine Ratio 14.5 (6-22) Glucose 140 H (80-110) mg/dL Lactate 2.3 H (0.7-2.1) mmol/L Calcium 9.5 (8.4-10.2) mg/dL Total Bilirubin 1.8 H (0.2-1.3) mg/dL AST 144 H (17-59) IU/L ALT 53 H (<50) IU/L Alkaline Phosphatase 212 H (38-126) U/L Total Protein 8.8 H (6.3-8.2) g/dL Albumin 4.7 (3.5-5.0) g/dL Globulin 4.1 (1.7-4.1) g/dL Albumin/Globulin Ratio 1.1 (1.0-2.8) MDM Narrative Medical decision making narrative: Over 1 week of left lower quadrant abdominal pain and constipation, previous history of diverticulitis. Patient was discharged on metronidazole t.i.d. and ciprofloxacin b.i.d., however when asked how many doses the patient has taken he says 2, stating that he thought that he was only supposed to take the antibiotics once daily. By patient's admission he has been under dosing. Based on exam, medical history, and physical exam laboratory work and CT imaging will be obtained for additional assessment. Due to history of alcohol use disorder thiamine and folic acid ordered. P.o. lactulose ordered for constipation. Laboratory work and imaging pending. Care of patient is signed out to daytime physician at 7:00 a.m.. <Deng Tubbs DO - Last Filed: 01/11/24 08:27> Medical Records Attestation: I reviewed the patient's medical records. Lab Data Attestation: I reviewed the patient's lab results. Labs: Lab Results 01/11/24 Range/Units 07:01 WBC 9.5 (4.5-11.0) X10^3/uL RBC 4.73 (4.5-5.9) X10^6/uL Hgb 14.4 (13.5-17.5) g/dL Hct 42.3 (41-53) % MCV 89.5 (80-100) fL MCH 30.4 (26-34) PG MCHC 34.0 (30-36) % RDW 16.7 H (11.6-14.8) % Plt Count 142 L (150-400) X10^3/uL Neut % (Auto) 73.2 (50-75) % Lymph % (Auto) 14.2 L (25-40) % Lawrence % (Auto) 6.6 (3-14) % Eos % (Auto) 2.9 (2-4) % Baso % (Auto) 3.1 H (0-2) % Neut # (Auto) 7000 (4450-5281) /uL Lymph # (Auto) 1300 (8608-0958) /uL Lawrence # (Auto) 600 (0-900) /uL Eos # (Auto) 300 (0-450) /uL Baso # (Auto) 300 H (0-100) /uL Sodium 138 (137-145) mmol/L Potassium 3.6 (3.4-5.1) mmol/L Chloride 103 (98-107) mmol/L Carbon Dioxide 20 L (22-32) mmol/L BUN 9 (9-20) mg/dL Creatinine 0.62 L (0.66-1.25) mg/dL Estimated GFR > 60 (>60) mL/min BUN/Creatinine Ratio 14.5 (6-22) Glucose 140 H (80-110) mg/dL Lactate 2.3 H (0.7-2.1) mmol/L Calcium 9.5 (8.4-10.2) mg/dL Total Bilirubin 1.8 H (0.2-1.3) mg/dL AST 144 H (17-59) IU/L ALT 53 H (<50) IU/L Alkaline Phosphatase 212 H (38-126) U/L Total Protein 8.8 H (6.3-8.2) g/dL Albumin 4.7 (3.5-5.0) g/dL Globulin 4.1 (1.7-4.1) g/dL Albumin/Globulin Ratio 1.1 (1.0-2.8) Imaging Data CT scan - abdomen/pelvis: Radiologist's Impression: PROCEDURE: CT ABDOMEN PELVIS W CON INDICATIONS: LLQ ABD PAIN, HX DIVERTICULITIS TECHNIQUE: After the administration of intravenous contrast, axial sections acquired from the lung bases to the pubic symphysis. Coronal and sagittal reformats were performed. For radiation dose reduction, the following was used: automated exposure control, adjustment of mA and/or kV according to patient size. COMPARISON: [facility], CT, CT ABDOMEN PELVIS W CON, 11/19/2023, 10:33. FINDINGS: Image quality: Diagnostic. Lower Chest: No significant findings. ABDOMEN: Liver: Cirrhosis, diffuse hepatic steatosis. No solid mass. Diffusely heterogeneous enhancement of the liver. Gallbladder: No radiopaque gallstones or wall thickening. Biliary ducts: No biliary dilation. Pancreas: No ductal dilation. Spleen: Size is within normal limits. Adrenal Glands: No adrenal nodules. Kidneys and Ureters: No hydronephrosis. No solid mass. No complex renal cystic lesion which requires follow up. Stomach and Bowel: Advanced sigmoid diverticulosis with mild superimposed acute diverticulitis. No free air or abscess cavity. Peritoneum: No abnormal intraperitoneal fluid. No free air. Ventral Wall: No significant ventral hernia. Abdominal Nodes: No retroperitoneal or mesenteric adenopathy by size criteria. Vessels: Aorta and inferior vena cava are normal in size. PELVIS: Pelvic Organs: Unremarkable. Bladder: No bladder wall thickening, accounting for underdistention. Pelvic Nodes: No enlarged lymph nodes. Miscellaneous: No inguinal hernias are seen. Bones: No aggressive osseous abnormality. IMPRESSION: 1. Advanced sigmoid diverticulosis with mild superimposed acute diverticulitis. 2. Cirrhosis, diffuse hepatic steatosis, inhomogeneous enhancement of the liver. Findings similar to previous. MDM Narrative Medical decision making narrative: Over 1 week of left lower quadrant abdominal pain and constipation, previous history of diverticulitis. Patient was discharged on metronidazole t.i.d. and ciprofloxacin b.i.d., however when asked how many doses the patient has taken he says 2, stating that he thought that he was only supposed to take the antibiotics once daily. By patient's admission he has been under dosing. Based on exam, medical history, and physical exam laboratory work and CT imaging will be obtained for additional assessment. Due to history of alcohol use disorder thiamine and folic acid ordered. P.o. lactulose ordered for constipation. Laboratory work and imaging pending. Care of patient is signed out to daytime physician at 7:[address] tubbs: Received turned over. Review patient's history and physical exam. CT scan today shows continued diverticulitis without signs of perforation or abscess. It appears that the patient has not been taking the antibiotics as directed. He misread the label and thought that each of the antibiotics was only 1 time a day. We discussed the need to take this as directed. There was no indication for admission to the hospital. No indication to switch the antibiotics currently. No indication for surgical consultation. Discussed this with him. We discussed return precautions. He expressed understanding and agreement. Discharge Plan Departure Patient Disposition: Home Clinical Impression: Diverticulitis Instructions: DI for Diverticulitis Activity Restrictions/Additional Instructions: The CT scan today shows a continued diverticulitis infection. You do need to take the antibiotics as directed. The ciprofloxacin is 2 times a day at the metronidazole as 3 times a day. Recommend a bland diet. Contact your primary doctor for a follow-up. Prescriptions: No Action metronidazole 500 mg tablet 500 mg PO Q8H 10 Days Qty: 30 0RF ciprofloxacin HCl 500 mg tablet 500 mg PO Q12H 10 Days Qty: 20 0RF ondansetron 4 mg tablet,disintegrating 4 mg PO Q6H PRN (Reason: nausea and vomiting) 7 Days Qty: 21 0RF pantoprazole 20 mg tablet,delayed release (DR/EC) 20 mg PO DAILY Qty: 90 3RF losartan 50 mg tablet 50 mg PO DAILY Qty: 90 1RF meloxicam 15 mg tablet 15 mg PO DAILY Qty: 90 1RF Referrals: Jean Taylor DO [Primary Care Provider] - Stand Alone Forms: Patient Portal/API/Survey
[2024-01-11 07:16] LABS: Add Manual Diff / Slide Review NO; Basophils Absolute Auto 300 /uL (0-100); Basophils Percent Auto 3.1 % (0-2); Eosinophils Absolute Auto 300 /uL (0-450); Eosinophils Percent Auto 2.9 % (2-4); Hematocrit 42.3 % (41-53); Hemoglobin 14.4 g/dL (13.5-17.5); Lymphocytes Absolute Auto 1300 /uL (1100-4500); Lymphocytes Percent Auto 14.2 % (25-40); Mean Corpuscular Hemoglobin 30.4 PG (26-34); Mean Corpuscular Volume 89.5 fL (80-100); Monocytes Absolute Auto 600 /uL (0-900); Monocytes Percent Auto 6.6 % (3-14); Neutrophils Absolute Auto 7000 /uL (1500-7000); Neutrophils Percent Auto 73.2 % (50-75); Platelet Count 142 X10^3/uL (150-400); Red Blood Cell Count 4.73 X10^6/uL (4.5-5.9); Red Cell Distribution Width 16.7 % (11.6-14.8); White Blood Cell Count 9.5 X10^3/uL (4.5-11.0)
[2024-01-11] MEDS: THIAMINE 200 MG in SODIUM CHLORIDE 0.9% 100 ML 408 MG IV (07:21)
[2024-01-11] MEDS: SODIUM CHLORIDE 0.9% 1,000 ML 1000 ML IV (07:21)
[2024-01-11] MEDS: FOLIC ACID 1 MG TABLET PO (07:22)
[2024-01-11] MEDS: LACTULOSE 20 GM/30 ML SOLUTION 40 GM PO (07:22)
[2024-01-11 07:27] LABS: Alanine Aminotransferase 53 IU/L (<50); Albumin 4.7 g/dL (3.5-5.0); Albumin Globulin Ratio 1.1 (1.0-2.8); Alkaline Phosphatase 212 U/L (38-126); Aspartate Aminotransferase 144 IU/L (17-59); BUN Creatinine Ratio 14.5 (6-22); Bilirubin Total 1.8 mg/dL (0.2-1.3); Blood Urea Nitrogen 9 mg/dL (9-20); Calcium 9.5 mg/dL (8.4-10.2); Carbon Dioxide 20 mmol/L (22-32); Chloride 103 mmol/L (98-107); Estimated Glomerular Filt Rate > 60 mL/min (>60); Globulin 4.1 g/dL (1.7-4.1); Glucose 140 mg/dL (80-110); HEMOLYSIS 37 (0-50); Lactate (Lactic Acid) 2.3 mmol/L (0.7-2.1); Potassium 3.6 mmol/L (3.4-5.1); Sodium 138 mmol/L (137-145); Total Protein 8.8 g/dL (6.3-8.2)
[2024-01-11 08:45] LABS: Reflexed Lactate in 2 Hours Y
== END 2024-01-11 08:49 | disposition home or self-care (01) ==
PROVIDERS: Emergency Medicine; Emergency Provider Emergency Medicine; PCP Family Medicine
DX: K57.92 Diverticulitis of intestine, part unspecified, without perforation or abscess without bleeding (principal); K59.00 Constipation, unspecified; R10.32 Left lower quadrant pain
CPT/HCPCS: 36415; 74177; 80053; 83605; 85025; 99284; Q9967

== ENCOUNTER 2024-01-11 17:22 | Emergency (ER) | payer MEDICARE, SELFPAY ==
[2024-01-11 17:34] VITALS: PULSE 102; RESP 18; TEMP 37.1; O2SAT 97; BMI 27.0
[2024-01-11 17:46] VITALS: BP 169/89; PULSE 93; RESP 26; O2SAT 97
--- NOTE | 2024-01-11 18:04 | ED.RECABL ---
HPI - Recheck/Abnormal Lab/Rx General Chief Complaint: Recheck/Abnormal Lab/Rx Stated Complaint: return from this am, abd px Time Seen by Provider: 01/11/24 17:52 Source: patient Mode of arrival: Ambulatory History of Present Illness HPI narrative: 63-year-old male with history of alcohol use disorder, hypertension, recently diagnosed with diverticulitis presents by private vehicle for persistent abdominal pain. Patient was seen earlier this morning for abdominal pain. He was confirmed to have diverticulitis. Patient was prescribed ciprofloxacin and metronidazole several days previously for this pain, however he was only taking 1 dose of each medicine once per day and severely underdosing his meds. Patient reports continued pain and lack of BM. He has taken tylenol without significant relief Related Data Previous Rx's Medication Instructions Recorded pantoprazole 20 mg tablet,delayed 20 mg PO DAILY #90 tabs 04/25/23 release losartan 50 mg tablet 50 mg PO DAILY #90 tabs 12/24/23 meloxicam 15 mg tablet 15 mg PO DAILY #90 tabs 12/24/23 ciprofloxacin HCl 500 mg tablet 500 mg PO Q12H 10 days #20 tabs 01/09/24 metronidazole 500 mg tablet 500 mg PO Q8H 10 days #30 tabs 01/09/24 ondansetron 4 mg disintegrating 4 mg PO Q6H PRN nausea and 01/09/24 tablet vomiting 7 days #21 tabs hydrocodone 5 mg-acetaminophen 325 1 tab PO Q8H PRN pain #8 tabs 01/11/24 mg tablet Allergies Allergy/AdvReac Type Severity Reaction Status Date / Time celecoxib [From Celebrex] Allergy Severe SPASM Verified 01/09/24 07:15 amoxicillin Allergy Intermediate Swelling Verified 01/09/24 07:16 of Lip/Tongue/Throat hydrochlorothiazide AdvReac Intermediate hyponatremi Verified 01/09/24 07:15 a lisinopril AdvReac Mild angiodema Verified 01/09/24 07:15 (lips) Patient History Medical History Anxiety Skin lesions GERD (gastroesophageal reflux disease) History of varicocele Sebaceous cyst Dizziness after extension of neck Plantar fasciitis, bilateral Herniated nucleus pulposus, L5-S1, right Herniated nucleus pulposus, L3-4 right Alcoholic liver disease Alcohol abuse, 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) Nocturia Thrombophlebitis 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) Highly echogenic liver on ultrasound (07/2020) Low back pain Alcohol abuse Elevated liver enzymes Mixed hyperlipidemia Rectal bleeding (02/18/19) Vision disorder Pneumothorax (~2013) Shoulder pain Fractures Measles Chicken pox Cataracts, bilateral Varicocele (2001) Hypertension Family History Father Cancer Social History Smoking Status: Never smoker second hand exposure: Yes alcohol intake: current substance use type: does not use Smoking Status: Never smoker alcohol intake frequency: 3 or more drinks per day Substance Use Type: does not use Exam Initial Vital Signs Initial Vital Signs: Vital Signs Temperature 98.7 F 01/11/24 17:34 Pulse Rate 102 H 01/11/24 17:34 Respiratory Rate 18 01/11/24 17:34 Pulse Oximetry 97 01/11/24 17:34 Oxygen Delivery Method Room Air 01/11/24 17:34 Const: Awake, alert, appears chronically unwell, in [id number] discomfort GI: Soft, generalized tenderness to deep palpation, particularly in left lower quadrant without rebound or guarding Skin: Warm, Dry, intact, no rashes Neuro: AO x3, CN II-XII grossly intact, moves all extremities Course Orders Ordered: Discontinued Medications Hydrocodone Bitart/Acetaminophen (Hydrocodone/Acet 5/325 Prepack) 1 bottle MISC DIRECTED ONE Stop: 01/11/24 20:09 Last Admin: 01/11/24 20:23 Dose: 1 bottle Documented By: PRASHANT Droperidol (Droperidol 5 Mg/2 Ml Vial) 2.5 mg IV NOW ONE Stop: 01/11/24 18:04 Last Admin: 01/11/24 18:16 Dose: 2.5 mg Documented By: PRASHANT Glycerin (Glycerin Supp Adult 1 Supp) 1 each TN NOW ONE Stop: 01/11/24 19:09 Last Admin: 01/11/24 19:21 Dose: 1 each Documented By: MIKA Ketorolac Tromethamine (Ketorolac 30 Mg/Ml Vial) 15 mg IV NOW ONE Stop: 01/11/24 19:09 Last Admin: 01/11/24 19:20 Dose: 15 mg Documented By: MIKA Polyethylene Glycol/Electrolytes ([id number]/Sod Sulf,Bicarb,Cl/Kcl 4,000 Ml Solution) 4,000 ml PO NOW ONE Stop: 01/11/24 18:02 Last Admin: 01/11/24 19:21 Dose: 4,000 ml Documented By: MIKA Vital Signs Vital signs: Vital Signs - 8 hr 01/11/24 17:34 01/11/24 17:46 01/11/24 17:46 Temperature 98.7 F Pulse Rate 102 H 93 H Respiratory Rate 18 26 H Blood Pressure 169/89 H Pulse Oximetry 97 97 Oxygen Delivery Method Room Air 01/11/24 20:25 Temperature Pulse Rate 72 Respiratory Rate 20 Blood Pressure 154/82 H Pulse Oximetry 98 Oxygen Delivery Method Room Air MDM - Recheck/Abnormal Lab/Rx MDM Narrative Medical decision making narrative: Patient presenting for persistent abdominal pain. Diagnosed earlier this morning with diverticulitis. He has already been prescribed medications but was previously not taking them per rx instructions. Laboratory work and imaging from earlier this morning reviewed. There has been no change in symptoms, no indication for repeat labs or imaging at this time. Patient given laxatives and pain medications here. He states that he needs to have a bowel movement but would like to do that in the privacy of his own home. Patient was given a short course of pain medications for the acute phase of illness. He was advised that these medications can cause constipation and may worsen his constipation. He was sent home with [facility] and given instructions on how to take this medication to keep regular bowel movements. Discharge Plan Departure Patient Disposition: Home Clinical Impression: Abdominal pain Instructions: DI for Abdominal Pain-Adult Activity Restrictions/Additional Instructions: Continue to take your antibiotics as prescribed. A prepack of pain medications has been sent with you. Do not take this medication with alcohol or before driving as they can cause drowsiness and put you at increased risk of falling in accidents. These medications can also cause constipation, so drink at least 8 oz of the bowel prep you has been given 1-2 times daily while you are on these medications. Prescriptions: New hydrocodone-acetaminophen 5-325 mg tablet 1 tab PO Q8H PRN (Reason: pain) Qty: 8 0RF No Action metronidazole 500 mg tablet 500 mg PO Q8H 10 Days Qty: 30 0RF ciprofloxacin HCl 500 mg tablet 500 mg PO Q12H 10 Days Qty: 20 0RF ondansetron 4 mg tablet,disintegrating 4 mg PO Q6H PRN (Reason: nausea and vomiting) 7 Days Qty: 21 0RF pantoprazole 20 mg tablet,delayed release (DR/EC) 20 mg PO DAILY Qty: 90 3RF losartan 50 mg tablet 50 mg PO DAILY Qty: 90 1RF meloxicam 15 mg tablet 15 mg PO DAILY Qty: 90 1RF Referrals: Jean Taylor DO [Primary Care Provider] - Stand Alone Forms: Patient Portal/API/Survey
[2024-01-11] MEDS: DROPERIDOL 5 MG/2 ML VIAL 2.5 MG IV (18:16)
[2024-01-11] MEDS: KETOROLAC 30 MG/ML VIAL 15 MG IV (19:20)
[2024-01-11] MEDS: GLYCERIN SUPP ADULT 1 SUPP 1 EACH PR (19:21)
[2024-01-11] MEDS: PEG3350/SOD SULF,BICARB,CL/KCL 4,000 ML SOLUTION 4000 ML PO (19:21)
[2024-01-11] MEDS: HYDROCODONE/ACET 5/325 PREPACK 1 BOTTLE MISC (20:23)
[2024-01-11 20:25] VITALS: BP 154/82; PULSE 72; RESP 20; O2SAT 98
== END 2024-01-11 20:23 | disposition home or self-care (01) ==
PROVIDERS: Emergency Provider Emergency Medicine; PCP Family Medicine
DX: R10.9 Unspecified abdominal pain (principal)
CPT/HCPCS: 36415; 74177; 80053; 83605; 85025; 96374; 96375; 99284; J1790; J1885; Q9967

== ENCOUNTER → 2024-01-28 09:00 | Outpatient (CLI) | payer MEDICARE, SELFPAY ==
--- NOTE | 2024-01-28 09:04 | DI.CT.S_ITS ---
PROCEDURE: CT ABDOMEN PELVIS W CON INDICATIONS: Diverticulitis TECHNIQUE: After the administration of intravenous contrast, axial sections acquired from the lung bases to the pubic symphysis. Coronal and sagittal reformats were performed. For radiation dose reduction, the following was used: automated exposure control, adjustment of mA and/or kV according to patient size. COMPARISON: [facility], CT, CT ABDOMEN PELVIS W CON, 01/11/2024, 7:52. FINDINGS: Image quality: Diagnostic. Lower Chest: No significant findings. ABDOMEN: Liver: Nodular liver contour. Hepatic steatosis. Heterogeneous enhancement. Patent portal vein. Gallbladder: No radiopaque gallstones or wall thickening. Biliary ducts: No biliary dilation. Pancreas: No ductal dilation. Spleen: Size is within normal limits. Adrenal Glands: No adrenal nodules. Kidneys and Ureters: No hydronephrosis. No solid mass. No complex renal cystic lesion which requires follow up. Stomach and Bowel: Interval decrease and wall thickening of the sigmoid colon, with reduced pericolonic fat stranding. Peritoneum: No abnormal intraperitoneal fluid. No free air. Ventral Wall: No significant ventral hernia. Abdominal Nodes: No retroperitoneal or mesenteric adenopathy by size criteria. Vessels: Aorta and inferior vena cava are normal in size. PELVIS: Pelvic Organs: Unremarkable. Bladder: No bladder wall thickening, accounting for underdistention. Pelvic Nodes: No enlarged lymph nodes. Miscellaneous: Small left inguinal hernia containing fat. Bones: No aggressive osseous abnormality. IMPRESSION: Interval reduction in wall thickening of the sigmoid colon, with decreased pericolonic fat stranding. Findings likely indicate resolving diverticulitis. Cirrhotic liver morphology. Consider GI referral if not performed in the past. Dictated by: Dickson Farris M.D. on 01/28/2024 at 11:16 Approved by: Dickson Farris M.D. on 01/28/2024 at 11:19
== END ==
PROVIDERS: PCP Family Medicine; Referring Provider Surgery; Visit Provider Surgery
DX: K57.92 Diverticulitis of intestine, part unspecified, without perforation or abscess without bleeding (principal); K40.90 Unilateral inguinal hernia, without obstruction or gangrene, not specified as recurrent
CPT/HCPCS: 74177; Q9967

== ENCOUNTER 2024-10-05 09:58 | Emergency (ER) | payer MEDICARE, SELFPAY ==
[2024-10-05 10:01] VITALS: BP 157/81; PULSE 79; RESP 20; TEMP 36.4; O2SAT 98; BMI 25.4
[2024-10-05 10:12] VITALS: BMI 25.4
--- NOTE | 2024-10-05 11:18 | ED_ITS ---
HPI - Skin/Abscess/Foreign Bdy <Nneka Seals PA-C - Last Filed: 10/05/24 11:47> General Chief complaint: Skin/Abscess/Foreign Body Stated complaint: Allergic reaction to antibiotics/referred by [facility] Time Seen by Provider: 10/05/24 11:05 Source: patient Mode of arrival: Ambulatory Limitations: no limitations History of Present Illness HPI narrative: Mr. Quiroz is a very pleasant 64-year-old gentleman with a past medical history of alcohol use, hypertension, diverticulitis who presents to the emergency department for a rash to his right chest/upper extremity x3 days, concerned for allergic reaction. On 09/30/2024 the patient was started on Cipro and Flagyl for a suspected diverticulitis flare. On 10/03/2024 the patient went to the walk-in clinic for a rash on the right side of his chest, concerned for antibiotic reaction. At the time his abdominal symptoms had completely resolved so the walk-in clinic provider advised him to stop taking the antibiotics. Patient comes to the emergency department today with his for concern of Danie Ebenezer syndrome/worsening rash. This time patient has an erythematous rash with overlying blister/vesicles starting in the right side of the chest going under the armpit and slightly onto the back of the arm in the T1 nerve distribution. This rash does not cross midline of the body. It does not involve the face or any mucous membranes. Patient does admit to a history of chickenpox and no shingles vaccine. He reports that he was feeling somewhat fatigued with a low-grade fever for few days before the rash started. This time he denies any other symptoms including chest pain, shortness of breath, abdominal pain, nausea, vomiting, diarrhea, constipation, bloody stools. He is having somewhat mucous stools. Related Data Previous Rx's ?Medication ?Instructions ?Recorded pantoprazole 20 mg tablet,delayed 20 mg PO DAILY #90 t abs 04/03/24 release meloxicam 15 mg tablet 15 mg PO DAILY #90 tabs 03/29 10/20 losartan 50 mg tablet 50 mg PO DAILY #90 tabs 05/28 11/20 ciprofloxacin HCl 500 mg tablet 500 mg PO BID #10 tabs 09/30/24 valacyclovir 1 gram tablet 1,000 mg PO TID 7 days #21 tabs 10/05/24 Allergies Allergy/AdvReac Type Severity Reaction Status Date / Time celecoxib (From Celebrex) Allergy Severe SPASM Verified 10/05/24 10:13 amoxicillin Allergy Intermediate Swelling Verified 10/05/24 10:13 of Lip/Tongue/Throat hydrochlorothiazide AdvReac Intermediate hyponatremi Verified 10/05/24 10:13 a lisinopril AdvReac Mild angiodema Verified 10/05/24 10:13 (lips) Review of Systems <Nneka Seals PA-C - Last Filed: 10/05/24 11:47> Review of Systems ROS Unobtainable: All systems reviewed & are unremarkable except as noted in HPI and below Patient History <Nneka Seals PA-C - Last Filed: 10/05/24 11:47> Medical History Anxiety Skin lesions GERD (gastroesophageal reflux disease) History of varicocele Sebaceous cyst Dizziness after extension of neck Plantar fasciitis, bilateral Herniated nucleus pulposus, L5-S1, right Herniated nucleus pulposus, L3-4 right Alcoholic liver disease Alcohol abuse, 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) Nocturia Thrombophlebitis 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) Highly echogenic liver on ultrasound (07/2020) Low back pain Alcohol abuse Elevated liver enzymes Mixed hyperlipidemia Rectal bleeding (02/18/19) Vision disorder Pneumothorax (~2013) Shoulder pain Fractures Measles Chicken pox Cataracts, bilateral Varicocele (2001) Hypertension Family History Father Cancer Social History Smoking Status: Never smoker second hand exposure: Yes alcohol intake: current substance use type: does not use Smoking Status: Never smoker alcohol intake frequency: 3 or more drinks per day Alcohol type: beer, wine and hard liquor Exam <Nneka Seals PA-C - Last Filed: 10/05/24 11:47> Narrative Exam Narrative: GENERAL: 64 year old patient appears stated age. Well-developed patient, in no acute distress. HEAD: Atraumatic. Normocephalic. EYES: No scleral icterus. No injection or drainage. ENT: Nose without bleeding, purulent drainage. Throat without erythema or lesions. Airway patent. NECK: Trachea midline. Cervical ROM intact. CARDIOVASCULAR: Regular rate and rhythm. RESPIRATORY: ?Nonlabored respirations. ?Speaking in clear, full sentences. GASTROINTESTINAL: Abdomen soft, non-tender, nondistended. EXTREMITIES: No LE edema. NEURO: AOx3. ?Clear speech. ?Moves all 4 extremities appropriately. SKIN: Starting on the right chest wall and extending under the right axilla onto the superior posterior right arm in the T1 distribution there is an erythematous, blanchable rash with overlying clusters of vesicles. This rash does not cross the midline of the body. There is no palmar lesions. There is no mucous membrane lesions. There is no facial rash. Initial Vital Signs Initial Vital Signs: Vital Signs Temperature 97.6 F 10/05/24 10:01 Pulse Rate 79 10/05/24 10:01 Respiratory Rate 20 10/05/24 10:01 Blood Pressure 157/81 H 10/05/24 10:01 Pulse Oximetry 98 10/05/24 10:01 Oxygen Delivery Method Room Air 10/05/24 10:01 <Margarita Parnell MD - Last Filed: 10/05/24 17:47> Initial Vital Signs Initial Vital Signs: Vital Signs Temperature 97.6 F 10/05/24 10:01 Pulse Rate 79 10/05/24 10:01 Respiratory Rate 20 10/05/24 10:01 Blood Pressure 157/81 H 10/05/24 10:01 Pulse Oximetry 98 10/05/24 10:01 Oxygen Delivery Method Room Air 10/05/24 10:01 Course <Nneka Seals PA-C - Last Filed: 10/05/24 11:47> Vital Signs Vital signs: Vital Signs - 8 hr 10/05/24 10:01 Temperature 97.6 F Pulse Rate 79 Respiratory Rate 20 Blood Pressure 157/81 H Pulse Oximetry 98 Oxygen Delivery Method Room Air <Margarita Parnell MD - Last Filed: 10/05/24 17:47> Vital Signs Vital signs: Vital Signs - 8 hr 10/05/24 10:01 Temperature 97.6 F Pulse Rate 79 Respiratory Rate 20 Blood Pressure 157/81 H Pulse Oximetry 98 Oxygen Delivery Method Room Air MDM - Skin/Abscess/Foreign Bdy <Nneka Seals PA-C - Last Filed: 10/05/24 11:47> Medical Records Attestation: I reviewed the patient's medical records. [facility] Narrative Medical decision making narrative: 64-year-old gentleman with a past medical history of alcohol use, hypertension, diverticulitis who presents to the emergency department for a rash to his right chest/upper extremity x3 days, concerned for allergic reaction. Differential diagnosis includes but isn't limited to shingles, cellulitis, drug rash, etc. On exam patient is in no acute distress, nontoxic appearing, vital signs appropriate. He has an erythematous vesicular rash in the T1 distribution on the right side of the body consistent with shingles. He did have chickenpox as a child, no history of shingles vaccine. Discussed with the patient that at this time this is not at all consistent with Solano-Ebenezer syndrome or a drug rash. He has not having any abdominal symptoms so we will continue to hold off on antibiotics. Recommend treatment with antivirals at this time in addition to supportive care. He was prescribed valacyclovir 1 g t.i.d. x7 days and also discuss on the importance of covering the rash, hand washing, etc.. Discussed ED return precautions and pain control. He verbalized understanding of all information is agreeable to plan. He is stable for discharge home. Discharge Plan Departure Patient Disposition: Home Clinical Impression: Shingles rash Qualifiers: Herpes zoster complications: without complications Qualified Code(s): B02.9 - Zoster without complications Instructions: DI for Shingles Activity Restrictions/Additional Instructions: Dear Mr. Quiroz, Thank you for coming to the emergency department. Today you were evaluated for a rash of your right upper extremity. Your rash is consistent with shingles or a herpes zoster infection affecting the T1 nerve distribution. This is a viral infection, and you have been prescribed valacyclovir which is an antiviral medication to take 3 times a day for the next week. Please keep the rash covered until it is crusted, perform frequent hand washing, and avoid contact with immunocompromised individuals, babies, or individuals who are . Please be aware that you can continue to have some discomfort in the area of the rash even wants the rash has gone away. You may continue taking your meloxicam for pain relief in addition to Tylenol. Please return to the emergency department if you develop any new or worsening symptoms or concerns, rash involving the face, mucous membranes or any other concerns. Please follow up with your primary care doctor within the next 2-3 days for ER follow-up. (If you do not have a PCP you can call [phone]. ?to schedule an appointment with an [facility] Primary Care Provider) IF YOU DEVELOP ANY NEW OR WORSENING SYMPTOMS, RETURN TO THE ER! Please read the attached instructions, they highlight more specific treatments and interventions for you at home. Thank you for letting me participate in your care, Nneka Seals PA-C Prescriptions: New valacyclovir 1 gram tablet 1,000 mg PO TID 7 Days Qty: 21 0RF No Action ciprofloxacin HCl 500 mg tablet 500 mg PO BID Qty: 10 0RF pantoprazole 20 mg tablet,delayed release (DR/EC) 20 mg PO DAILY Qty: 90 3RF meloxicam 15 mg tablet 15 mg PO DAILY Qty: 90 1RF losartan 50 mg tablet 50 mg PO DAILY Qty: 90 1RF Referrals: Jean Taylor, DO [Primary Care Provider, [facility]] Stand Alone Forms: Patient Portal/API ED Sign-out <Margarita Parnell MD - Last Filed: 10/05/24 17:47> [facility] Att[facility]: I was immediately available in the department for consultation throughout this patient's visit. Margarita Parnell MD
== END 2024-10-05 11:45 | disposition home or self-care (01) ==
PROVIDERS: Emergency Provider Physician Assistant; PCP Family Medicine
DX: B02.9 Zoster without complications (principal)
CPT/HCPCS: 99281

== ENCOUNTER 2024-12-07 23:01 | Emergency (ER) | payer MEDICARE, SELFPAY ==
[2024-12-07 23:12] VITALS: BP 108/55; PULSE 97; RESP 24; TEMP 36.9; O2SAT 100; BMI 25.1
--- NOTE | 2024-12-07 23:13 | EKG_ITS ---
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
--- NOTE | 2024-12-07 23:25 | DI.RAD.S_ITS ---
PROCEDURE: XR CHEST 1V INDICATIONS: Shortness of breath TECHNIQUE: One view of the chest was acquired. COMPARISON: [facility], , XR CHEST 1V, 10/15/2018, 15:41. [facility], , CHEST 2 VIEW, 12/28/2013, 6:33. FINDINGS: Surgical changes and devices: None. Lungs and pleura: Lungs are clear. No pleural effusions or pneumothorax. Mediastinum: Mediastinal contours appear normal. Heart size is normal. Bones and chest wall: No suspicious bony lesions. Overlying soft tissues appear unremarkable. IMPRESSION: No acute cardiopulmonary abnormality is seen. Dictated by: Duc Mercado M.D. on 12/08/2024 at 0:18 Approved by: Duc Mercado M.D. on 12/08/2024 at 0:18
[2024-12-07 23:39] LABS: Add Manual Diff / Slide Review NO; Hematocrit 30.4 % (41-53); Hemoglobin 10.4 g/dL (13.5-17.5); Lymphocytes Absolute Auto 3000 /uL (1100-4500); Mean Corpuscular HGB Conc 34.3 % (30-36); Mean Corpuscular Hemoglobin 34.9 PG (26-34); Mean Corpuscular Volume 101.8 fL (80-100); Platelet Count 109 X10^3/uL (150-400)
[2024-12-07 23:45] LABS: INR 1.6 (0.9-1.3); Prothrombin Time 17.4 SECONDS (9.4-12.5)
[2024-12-07 23:48] LABS: Alanine Aminotransferase 49 IU/L (<50); Albumin 4.3 g/dL (3.5-5.0); Albumin Globulin Ratio 0.9 (1.0-2.8); Alkaline Phosphatase 207 U/L (38-126); Blood Urea Nitrogen 20 mg/dL (9-20); Calcium 9.7 mg/dL (8.4-10.2); Carbon Dioxide 16 mmol/L (22-32); Chloride 105 mmol/L (98-107); Estimated Glomerular Filt Rate > 60 mL/min (>60); Globulin 4.9 g/dL (1.7-4.1); Glucose 174 mg/dL (70-99); HEMOLYSIS < 15 (0-50); Potassium 4.1 mmol/L (3.4-5.1); Sodium 141 mmol/L (137-145); Total Protein 9.2 g/dL (6.3-8.2)
[2024-12-07] MEDS: ONDANSETRON 4 MG/2 ML INJ IV (23:52)
[2024-12-07 23:57] LABS: NT-proBNP (BNP-Adult 18+) 26 pg/mL (<125)
[2024-12-08] VITALS (8 sets, daily range): BP systolic 140–176; BP diastolic 70–79; PULSE 80–91; RESP 12–31; O2SAT 87–97
[2024-12-08 00:01] LABS: Lactate (Lactic Acid) 5.9 mmol/L (0.7-2.1)
[2024-12-08 01:10] LABS: Reflexed Lactate in 2 Hours Y
[2024-12-08] MEDS: LACTATED RINGERS 1,000 ML 1000 ML IV (01:27)
--- NOTE | 2024-12-08 01:43 | PC.NURSE ---
Pt resting quietly with eyes closed, resps even and not labored when RN enters exam room. Pt rouses easily to verbal stimuli and engages easily without distress. Pt states most symptoms have resolved at this time. States continues nausea and some tightness in lower mid chest he described as anxiety. Pt endorses daily heavy etoh use with recent attempts to reduce consumption. States traditionally 5-7 alcoholic beverages (wine and hard liquor) daily, approx 5 in the last 24 hours with the last drink being right before leaving for the hospital. Pt connected to cardiac, resp, blood pressure, and pulse ox monitors with alarms on and audible. Call light within reach. remains at bedside.
--- NOTE | 2024-12-08 01:59 | ED.SOB ---
HPI - SOB/Dyspnea General Chief Complaint: Shortness of Breath/Dyspnea Stated Complaint: chest pain, weakness , n/v Time Seen by Provider: 12/08/24 01:02 Source: family Mode of arrival: Wheelchair Limitations: no limitations History of Present Illness HPI Narrative: 64-year-old male who has questionable cirrhosis but is a daily heavy drinker. Patient admits to more than 5 drinks daily for several years. Patient also has a history of diverticulitis, hypertension, shingles with lingering nerve dermatome injury along the right upper chest wall area and along his right upper back. For the past 2 days the patient has been having more shortness of breath and today started with some chest pressure as well. These symptoms have since subsided upon evaluation right now. Related Data Home Medications ?Medication ?Instructions ?Recorded ?Confirmed gabapentin 300 mg capsule 300 mg PO 3XD 12/07/24 12/07/24 Previous Rx's ?Medication ?Instructions ?Recorded meloxicam 15 mg tablet 15 mg PO DAILY #90 tabs 04/15/24 losartan 50 mg tablet 50 mg PO DAILY #90 tabs 06/24/24 Allergies Allergy/AdvReac Type Severity Reaction Status Date / Time celecoxib (From Celebrex) Allergy Severe SPASM Verified 10/10/24 10:18 amoxicillin Allergy Intermediate Swelling Verified 10/10/24 10:18 of Lip/Tongue/Throat hydrochlorothiazide AdvReac Intermediate hyponatremi Verified 10/10/24 10:18 a lisinopril AdvReac Mild angiodema Verified 10/10/24 10:18 (lips) Review of Systems Review of Systems ROS Unobtainable: All systems reviewed & are unremarkable except as noted in HPI and below Patient History Medical History Diverticulosis Anxiety Skin lesions GERD (gastroesophageal reflux disease) History of varicocele Sebaceous cyst Dizziness after extension of neck Plantar fasciitis, bilateral Herniated nucleus pulposus, L5-S1, right Herniated nucleus pulposus, L3-4 right Alcoholic liver disease Alcohol abuse, 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) Nocturia Thrombophlebitis 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) Highly echogenic liver on ultrasound (07/2020) Low back pain Alcohol abuse Elevated liver enzymes Mixed hyperlipidemia Rectal bleeding (02/18/19) Vision disorder Pneumothorax (~2013) Shoulder pain Fractures Measles Chicken pox Cataracts, bilateral Varicocele (2001) Hypertension Family History Father Cancer Social History second hand exposure: Yes alcohol intake: current substance use type: does not use Smoking Status: Never smoker alcohol intake frequency: 3 or more drinks per day Alcohol type: beer, wine and hard liquor Exam Narrative Exam Narrative: General: Patient appears to be in no acute distress, acting appropriately Head: normocephalic, atraumatic, HEENT: Pupils equal round reactive, eyes tracking well, neck supple, no JVD Heart: regular rate and rhythm, no murmurs, rubs, or gallops heard Lungs: clear to auscultation, no adventitious sounds Abdomen: soft , nontender, nondistended, positive bowel sounds Neurological: no focal neurological signs, moving all extremities well, alert and oriented x3, Psych: good judgment ,good insight, mood is normal. Initial Vital Signs Initial Vital Signs: Vital Signs Temperature 98.5 F 12/07/24 23:12 Pulse Rate 97 H 12/07/24 23:12 Respiratory Rate 24 12/07/24 23:12 Blood Pressure 108/55 L 12/07/24 23:12 Pulse Oximetry 100 12/07/24 23:12 Oxygen Delivery Method Room Air 12/07/24 23:12 Course Orders Ordered: ED Orders 12/07/24 23:08 EKG-12 Lead Stat 12/07/24 23:25 XR chest 1V Stat EKG-12 Lead Stat Measure peak expiratory flow STAT RT Consult Eval and Treat STAT 12/07/24 23:30 Complete Blood Count AUTO DIFF Stat Comprehensive Metabolic Panel Stat Lactate (Lactic Acid) Stat NT-proBNP (BNP-Adult 18+) Stat Prothrombin Time INR Stat 12/08/24 01:03 Blood Culture Stat 12/08/24 01:58 Troponin I Stat 12/08/24 02:04 CT chest abd pel w con Stat 12/08/24 03:10 Urinalysis and Microscopic Stat 12/08/24 23:24 Troponin I Stat Discontinued Medications Lactated Ringer's (Lactated Ringers) 1,000 mls @ 1,000 mls/hr IV BOLUS ONE Stop: 12/08/24 02:03 Last Admin: 10/13/25 01:27 Dose: 1,000 mls/hr Documented By: CISCO Ondansetron HCl (Ondansetron 4 Mg/2 Ml Inj) 4 mg IV NOW ONE Stop: 12/07/24 23:42 Last Admin: 12/07/24 23:52 Dose: 4 mg Documented By: CHUY Reevaluation(s) Reevaluation #1: Upon re-evaluation, patient is asymptomatic and able to be discharged. Vital Signs Vital signs: Vital Signs - 8 hr 12/07/24 23:12 12/08/24 01:23 12/08/24 01:23 Temperature 98.5 F Pulse Rate 97 H 91 H Respiratory Rate 24 23 Blood Pressure 108/55 L 143/70 H Pulse Oximetry 100 96 Oxygen Delivery Method Room Air Room Air Oxygen Flow Rate 12/08/24 01:30 12/08/24 01:30 12/08/24 02:00 Temperature Pulse Rate 85 Respiratory Rate 31 H Blood Pressure 140/70 158/74 H Pulse Oximetry 94 Oxygen Delivery Method Room Air Oxygen Flow Rate 12/08/24 02:00 12/08/24 02:32 12/08/24 02:33 Temperature Pulse Rate 82 85 Respiratory Rate 23 16 Blood Pressure 157/75 H Pulse Oximetry 95 90 L Oxygen Delivery Method Room Air Room Air Oxygen Flow Rate 12/08/24 02:33 12/08/24 03:00 12/08/24 03:00 Temperature Pulse Rate 85 80 Respiratory Rate 15 12 Blood Pressure 147/72 H Pulse Oximetry 87 L 95 Oxygen Delivery Method Room Air Nasal Cannula Oxygen Flow Rate 2 12/08/24 03:13 12/08/24 03:13 12/08/24 03:30 Temperature Pulse Rate 90 Respiratory Rate 16 Blood Pressure 176/79 H 161/77 H Pulse Oximetry 97 Oxygen Delivery Method Room Air Oxygen Flow Rate 12/08/24 03:30 Temperature Pulse Rate 86 Respiratory Rate 25 H Blood Pressure Pulse Oximetry 97 Oxygen Delivery Method Room Air Oxygen Flow Rate MDM - SOB/Dyspnea Lab Data 12/07/24 23:30 12/07/24 23:30 Labs: Lab Results 12/07/24 12/08/24 12/08/24 Range/Units 23:30 01:58 03:10 WBC 11.7 H (4.5-11.0) X10^3/uL RBC 2.99 L (4.5-5.9) X10^6/uL Hgb 10.4 L (13.5-17.5) g/dL Hct 30.4 L (41-53) % MCV 101.8 H (80-100) fL MCH 34.9 H (26-34) PG MCHC 34.3 (30-36) % RDW 16.0 H (11.6-14.8) % Plt Count 109 L (150-400) X10^3/uL Neut % (Auto) 62.4 (50-75) % Lymph % (Auto) 25.9 (25-40) % [place] % (Auto) 8.2 (3-14) % Eos % (Auto) 2.6 (2-4) % Baso % (Auto) 0.9 (0-2) % Neut # (Auto) 7300 H (7535-4029) /uL Lymph # (Auto) 3000 (7841-1526) /uL [place] # (Auto) 1000 H (0-900) /uL Eos # (Auto) 300 (0-450) /uL Baso # (Auto) 100 (0-100) /uL PT 17.4 H (9.4-12.5) SECONDS INR 1.6 H (0.9-1.3) Sodium 141 (137-145) mmol/L Potassium 4.1 (3.4-5.1) mmol/L Chloride 105 (98-107) mmol/L Carbon Dioxide 16 L (22-32) mmol/L BUN 20 (9-20) mg/dL Creatinine 0.76 (0.66-1.25) mg/dL Estimated GFR > 60 (>60) mL/min BUN/Creatinine Ratio 26.3 H (6-22) Glucose 174 H (70-99) mg/dL Lactate 5.9 H* 5.2 H* (0.7-2.1) mmol/L Calcium 9.7 (8.4-10.2) mg/dL Total Bilirubin 3.5 H (0.2-1.3) mg/dL AST 167 H (17-59) IU/L ALT 49 (<50) IU/L Alkaline Phosphatase 207 H (38-126) U/L Troponin I 0.013 < 0.012 (0.01-0.034) ng/mL NT-Pro-B Natriuret Pep 26 (<125) pg/mL Total Protein 9.2 H (6.3-8.2) g/dL Albumin 4.3 (3.5-5.0) g/dL Globulin 4.9 H (1.7-4.1) g/dL Albumin/Globulin Ratio 0.9 L (1.0-2.8) Urine Color Yellow Urine Appearance Clear Urine pH 5.5 (4.5-8.0) Ur Specific [place] <=1.005 (1.000-1.035) Urine Protein Negative (Negative) Urine Glucose (UA) Negative (Negative) g/dL Urine Ketones 1+ H (NEGATIVE) Urine Occult Blood Negative (Negative) Urine Nitrate Negative (Negative) Urine Bilirubin Negative (NEGATIVE) Urine Urobilinogen 1.0 (0.2) E.U./dL Ur Leukocyte Esterase Negative (NEGATIVE) Urine RBC None seen (0-5/HPF) Urine WBC None seen (0-5/HPF) Ur Squamous Epith Cells None seen (0-5/HPF) Urine Bacteria None seen (None) Vol Urine Centrifuged 10ml (spun) Imaging Data CT scan - abdomen/pelvis: Radiologist's Impression: Extensive sigmoid diverticulosis without evidence of diverticulitis. Ascending colon wall thickening potential colitis no pneumatosis. Cirrhotic liver. Unremarkable chest. ECG Data Interpretation: EKG shows sinus tachycardia, normal axis, 110 beats per minute, normal WI intervals, no STT wave changes. No previous EKG available for comparison. MDM Narrative Medical decision making narrative: 64-year-old male with a history of chronic alcoholism and cirrhosis presents with abdominal discomfort that is worsening and some overall weakness that has been worsening in the last couple of months. He is found to have a chronic diverticulosis picture along with some possible colitis. Advised to change his diet to a diverticulosis diet and follow up with GI. He also we will finish out his Cipro and Flagyl. Offered to give IV antibiotics here in the ED but patient refused and wanted to be discharged. Discharge Plan Departure Patient Disposition: Home Clinical Impression: Colitis, Diverticulosis Instructions: DI for Diverticulosis Activity Restrictions/Additional Instructions: Continue with Cipro and Flagyl for the next 3 days as instructed until its completion. Go on a diverticulosis diet consisting of a soft diet more liquid in nature initially if having abdominal discomfort. Follow up with a GI physician. Continue to add more fiber in your diet. Come back to ER if abdominal pain worsens at any point. Prescriptions: No Action meloxicam 15 mg tablet 15 mg PO DAILY Qty: 90 1RF losartan 50 mg tablet 50 mg PO DAILY Qty: 90 1RF gabapentin 300 mg capsule 300 mg PO 3XD Referrals: Jean Taylor DO [Primary Care Provider, [facility]] Stand Alone Forms: Patient Portal/API
--- NOTE | 2024-12-08 02:04 | DI.CT.S_ITS ---
PROCEDURE: CT CHEST ABD PEL W CON INDICATIONS: sepsis /sob TECHNIQUE: After the administration of intravenous contrast, 5 mm thick sections acquired from the lung apices to the symphysis. 5 mm coronal and sagittal reformats were performed, with additional 7 mm MIP reformats through the lungs. For radiation dose reduction, the following was used: automated exposure control, adjustment of mA and/or kV according to patient size. COMPARISON: [facility], CT, CT ABDOMEN PELVIS W CON, 01/28/2024, 10:10. FINDINGS: Image quality: Excellent. CHEST: Lower Neck: No enlarged lymph nodes. Thyroid: No thyroid nodules which require sonographic follow up, per consensus guidelines. Axillae: No enlarged lymph nodes. Chest Wall: Unremarkable. Lungs and Pleura: No pneumothorax or pleural effusions. No consolidation or suspicious nodules. Heart: Heart size is normal. No pericardial effusion. Three-vessel coronary artery calcifications are noted. Thoracic Vessels: The aorta and pulmonary arteries demonstrate normal size. Mediastinum and Alena: No enlarged lymph nodes. Esophagus: No wall thickening. Small hiatal hernia. Esophageal varices are noted. ABDOMEN: Liver: No solid masses or intrahepatic biliary dilation. Portal vein is patent. Nodular liver capsule consistent cirrhosis. Recanalized umbilical vein noted. Superimposed fatty infiltration of the liver. Liver is enlarged. Multiple indeterminate hypoattenuating nonenhancing scattered foci in the liver parenchyma. These are too small to characterize based on size criteria. Gallbladder: No radiopaque gallstones or wall thickening. Biliary ducts: No biliary dilation. Pancreas: No ductal dilation. Spleen: Size is within normal limits. Adrenal Glands: No adrenal nodules. Kidneys and Ureters: No hydronephrosis. No solid mass. No complex renal cystic lesion which requires follow up. Stomach and Bowel: Normal colonic caliber, without significant wall thickening. Diffuse colonic diverticulosis present. Evaluation of the large bowel is limited given the overall underdistention. Equivocal wall thickening of the descending colon and sigmoid colon. Minimal pericolonic fat stranding. Peritoneum: Small volume ascites in the pelvis. No pneumoperitoneum. Ventral Wall: No significant ventral hernia. Abdominal Nodes: No pathologic lymphadenopathy. Vessels: Aorta and inferior vena cava are normal in size. Mild atheromatous plaques are noted in the nonaneurysmal abdominal aorta. Multiple prominent varices in the upper abdomen. PELVIS: Pelvic Organs: Mild prostate and seminal vesicle gland enlargement. Punctate prostate calcifications are noted. Bladder: No bladder wall thickening, accounting for underdistention. Pelvic Nodes: No enlarged lymph nodes. Miscellaneous: Small fat containing left inguinal hernia. No focal right inguinal hernia. Bones: No aggressive osseous abnormality. Multilevel degenerative disc disease. Grade 1 L3 on L4 retrolisthesis. Vacuum disc and moderate L5-S1 disc narrowing. IMPRESSION: Evaluation of the large bowel is limited given the overall under distention of the bowel. Given the limitations, equivocal wall thickening of the sigmoid colon and ascending colon. Differential includes early or mild diverticulitis without complications or portal colopathy. Cirrhosis without mass. Hepatomegaly with fatty infiltration. Normal gallbladder. Appendix is unremarkable. Agree with preliminary interpretation by [facility]. Dictated by: Aleja Sol M.D. on 12/08/2024 at 7:57 Approved by: Aleja Sol M.D. on 12/08/2024 at 8:13
--- NOTE | 2024-12-08 02:23 | PC.NURSE ---
Pt to imaging via ED stretcher with pharmacy technician program director
[2024-12-08 02:32] LABS: Troponin I 0.013 ng/mL (0.01-0.034)
[2024-12-08 02:35] LABS: Lactate 2HR (Lactic Acid Rflx) 5.2 mmol/L (0.7-2.1)
[2024-12-08 02:45] LABS: Troponin I < 0.012 ng/mL (0.01-0.034)
--- NOTE | 2024-12-08 03:10 | PC.NURSE ---
Ambulatory to restroom without difficulty or assistance.
[2024-12-08 03:22] LABS: Appearance Urine UA CLEAR; Bilirubin Urine UA NEGATIVE (NEGATIVE); Color Urine UA YELLOW; Glucose Urine UA NEGATIVE (Negative); Ketones Urine UA 1+ (NEGATIVE); Leukocyte Esterase Urine UA NEGATIVE (NEGATIVE); Nitrite Urine UA NEGATIVE (Negative); Occult Blood Urine UA NEGATIVE (Negative); Protein Urine UA NEGATIVE (Negative); Specific Gravity Urine UA <=1.005 (1.000-1.035); Urobilinogen Urine UA 1.0 E.U./dL (0.2); pH Urine UA 5.5 (4.5-8.0)
[2024-12-08] MEDS: ONDANSETRON 4 MG ODT PREPACK 1 BOTTLE MISC (03:57)
== END 2024-12-08 04:03 | disposition home or self-care (01) ==
PROVIDERS: Emergency Provider Family Medicine; PCP Family Medicine
DX: K52.9 Noninfective gastroenteritis and colitis, unspecified (principal); K57.32 Diverticulitis of large intestine without perforation or abscess without bleeding
CPT/HCPCS: 36415; 71045; 71260; 74177; 80053; 81001; 83605; 83880; 84484; 85025; 85610; 87040; 93005; 93010; 99285; J2405; J7120; Q9967

== ENCOUNTER 2024-12-10 13:10 | Inpatient (IN) | payer MEDICARE, SELFPAY ==
[2024-12-10] VITALS (18 sets, daily range): BP systolic 115–153; BP diastolic 58–80; PULSE 71–81; RESP 13–26; TEMP 36.9; O2SAT 90–98; BMI 25.2
--- NOTE | 2024-12-10 13:53 | ED.GIBLEED ---
HPI - GI Bleed General Chief complaint: GI Bleed Stated complaint: Sepsis, sent from PCP Time Seen by Provider: 12/10/24 13:12 Source: patient Mode of arrival: Ambulatory History of Present Illness HPI Narrative: Patient is a 64-year-old male history of alcohol use disorder, Leelee-Huerta tear recently diagnosed with colitis presents today at my request. He actually had 1 of 2 positive blood cultures for g positive cocci he also had elevated lactate 5.2. Ultimately discharged home on Cipro and Flagyl he reports he did not pick them up. He has not taken any of the antibiotics. He reports that he continues to feel weak and shaky he has had numerous episodes of black tarry stool. Not really having anymore abdominal pain no chest pain no shortness of breath no significant weakness. Related Data Home Medications ?Medication ?Instructions ?Recorded ?Confirmed gabapentin 300 mg capsule 300 mg PO 3XD 12/07/24 12/10/24 meloxicam 15 mg tablet 15 mg PO DAILY PRN 12/10/24 Previous Rx's ?Medication ?Instructions ?Recorded losartan 50 mg tablet 50 mg PO DAILY #90 tabs 06/24/24 Allergies Allergy/AdvReac Type Severity Reaction Status Date / Time celecoxib (From Celebrex) Allergy Severe SPASM Verified 12/10/24 12:52 amoxicillin Allergy Intermediate Swelling Verified 12/10/24 12:52 of Lip/Tongue/Throat hydrochlorothiazide AdvReac Intermediate hyponatremi Verified 12/10/24 12:52 a lisinopril AdvReac Mild angiodema Verified 12/10/24 12:52 (lips) Patient History Medical History Alcohol abuse Alcohol abuse, 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) Alcoholic liver disease Anxiety Cataracts, bilateral Chicken pox Diverticulosis Dizziness after extension of neck Elevated liver enzymes Fractures GERD (gastroesophageal reflux disease) Herniated nucleus pulposus, L3-4 right Herniated nucleus pulposus, L5-S1, right Highly echogenic liver on ultrasound (07/2020) 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) History of varicocele Hypertension Low back pain Measles Mixed hyperlipidemia Nocturia Plantar fasciitis, bilateral Pneumothorax (~2013) Rectal bleeding (02/18/19) Sebaceous cyst Shoulder pain Skin lesions Thrombophlebitis Varicocele (2001) Vision disorder Family History Father Cancer Social History household members: spouse Smoking Status: Never smoker second hand exposure: Yes alcohol intake: current substance use type: does not use Smoking Status: Never smoker alcohol intake frequency: 3 or more drinks per day Alcohol type: beer, wine and hard liquor Exam Initial Vital Signs Initial Vital Signs: Vital Signs Temperature 98.4 F 12/10/24 13:18 Pulse Rate 81 12/10/24 13:18 Respiratory Rate 16 12/10/24 13:18 Blood Pressure 115/58 L 12/10/24 13:18 Pulse Oximetry 97 12/10/24 13:18 Oxygen Delivery Method Room Air 12/10/24 13:18 GENERAL: Alert 64-year-old male appears to not feel well and in no acute distress. HEENT: Head atraumatic,EOMI, pupils reactive, face symmetric, moist mucous membranes CARDIOVASCULAR: Regular rate and rhythm without murmurs, rubs or gallops. RESPIRATORY: Breath sounds equal bilaterally, no wheezes rales or rhonchi. ABDOMEN: Soft, nontender. Normoactive bowel sounds all 4 quadrants. No guarding or rebound. Rectal: Black dark tarry stool grossly guaiac positive EXTREMITIES: Normal range of motion, no clubbing or edema. Neurovascularly intact NEUROLOGICAL: Alert and oriented x4.Normal gait and speech. Cranial nerves II through XII grossly intact. SKIN: Warm, dry, no laceration, no petechiae, no rashes or lesions. Course Orders Ordered: ED Orders 12/10/24 13:35 Consult to PROPELLER LAYOUT WORKER - Service Greeter Stat 12/10/24 13:52 Urine Drug Screen, Rapid Stat 12/10/24 14:00 CBC Auto Diff [Complete Blood Count AUTO DIFF] Stat CMP [Comprehensive Metabolic Panel] Stat ETOH [Ethanol (ETOH)] Stat Lactate (Lactic Acid) Stat PT [Prothrombin Time INR] Stat PTT Partial Thromboplastin Gabriele Stat Procalcitonin Stat Type and Screen Stat 12/10/24 14:20 Blood Culture Stat 12/10/24 14:35 CT angio Abd/Pel GI Bleed Stat 12/10/24 16:55 Consult to Physician Stat Haloperidol (Haloperidol 5 Mg/Ml Vial) 2 mg IV Q1HR PRN PRN Reason: Hallucinations Hydromorphone HCl (Hydromorphone Hcl 0.5 Mg/0.5 Ml Syringe) 0.5 mg IV Q2H PRN PRN Reason: Pain, Severe (7-10) Dextrose/Sodium Chloride (Dextrose 5%-0.45% Ns) 1,000 mls @ 100 mls/hr IV CONT SANJEEV Thiamine HCl 100 mg/ Sodium (Chloride) 101 mls @ 404 mls/hr IV DAILY SANJEEV Ciprofloxacin (Cipro) 200 mg in 100 mls @ 100 mls/hr IV Q12H SANJEEV Metronidazole (Flagyl) 500 mg in 100 mls @ 100 mls/hr IV Q6H SANJEEV Lorazepam (Lorazepam 2 Mg/Ml Inj) 1 mg IV Q4HR PRN PRN Reason: Anxiety Lorazepam (Lorazepam 2 Mg/Ml Inj) 0 mg IV CIWAPRN PRN; Protocol PRN Reason: Alcohol Withdrawal Lorazepam (Lorazepam 1 Mg Tablet) 0 mg PO CIWAPRN PRN; Protocol PRN Reason: Alcohol Withdrawal Multivitamins (Multivitamin 1 Tablet) 1 tab PO DAILY SANJEEV Naloxone HCl (Naloxone 0.4 Mg/Ml Vial) 0.2 mg IV Q2MIN PRN PRN Reason: Opiate Reversal Pantoprazole Sodium (Pantoprazole 40 Mg Vial) 40 mg IV BID [facility] Phenobarbital (Phenobarbital 65 Mg/Ml Vial) 130 mg IV Q6H SANJEEV Stop: 12/11/24 11:01 Discontinued Medications Sodium Chloride (Normal Saline 0.9%) 1,000 mls @ 1,000 mls/hr IV BOLUS ONE Stop: 12/10/24 15:34 Last Infusion: 12/10/24 17:22 Dose: Infused Documented By: Admin: 12/10/24 14:46 Dose: 1,000 mls/hr Documented By: PRASHANT Sodium Chloride (Normal Saline 0.9%) 1,000 mls @ 1,000 mls/hr IV BOLUS ONE Stop: 12/10/24 17:37 Last Admin: 12/10/24 16:46 Dose: 1,000 mls/hr Documented By: RUTH Pantoprazole Sodium (Pantoprazole 40 Mg Vial) 80 mg IV NOW ONE Stop: 12/10/24 13:53 Last Admin: 12/10/24 14:34 Dose: 80 mg Documented By: PRASHANT Phenobarbital (Phenobarbital 65 Mg/Ml Vial) 130 mg IV NOW ONE Stop: 12/10/24 17:28 Vital Signs Vital signs: Vital Signs - 8 hr 12/10/24 13:18 12/10/24 14:54 12/10/24 14:55 Temperature 98.4 F Pulse Rate 81 80 Respiratory Rate 16 Blood Pressure 115/58 L 151/70 H Pulse Oximetry 97 97 Oxygen Delivery Method Room Air 12/10/24 14:55 12/10/24 15:00 12/10/24 15:00 Temperature Pulse Rate 80 78 Respiratory Rate Blood Pressure 139/67 Pulse Oximetry 96 97 Oxygen Delivery Method 12/10/24 15:30 12/10/24 15:30 12/10/24 16:00 Temperature Pulse Rate 73 Respiratory Rate Blood Pressure 122/64 133/66 Pulse Oximetry 94 Oxygen Delivery Method 12/10/24 16:00 12/10/24 16:30 12/10/24 16:30 Temperature Pulse Rate 73 71 Respiratory Rate 26 H 17 Blood Pressure 137/70 Pulse Oximetry 93 95 Oxygen Delivery Method 12/10/24 17:00 12/10/24 17:00 Temperature Pulse Rate 80 Respiratory Rate 17 Blood Pressure 153/80 H Pulse Oximetry 95 Oxygen Delivery Method MDM - GI Bleed Lab Data 12/10/24 14:00 12/10/24 14:00 Labs: Lab Results 12/10/24 12/10/24 Range/Units 14:00 16:12 WBC 10.5 (4.5-11.0) X10^3/uL RBC 2.58 L (4.5-5.9) X10^6/uL Hgb 9.2 L (13.5-17.5) g/dL Hct 26.1 L (41-53) % MCV 100.9 H (80-100) fL MCH 35.5 H (26-34) PG MCHC 35.2 (30-36) % RDW 16.2 H (11.6-14.8) % Plt Count 93 L (150-400) X10^3/uL Neut % (Auto) 63.5 (50-75) % Lymph % (Auto) 23.4 L (25-40) % [place] % (Auto) 8.9 (3-14) % Eos % (Auto) 3.3 (2-4) % Baso % (Auto) 0.9 (0-2) % Neut # (Auto) 6700 (1164-8525) /uL Lymph # (Auto) 2500 (8628-4929) /uL [place] # (Auto) 900 (0-900) /uL Eos # (Auto) 300 (0-450) /uL Baso # (Auto) 100 (0-100) /uL PT 17.6 H (9.4-12.5) SECONDS INR 1.6 H (0.9-1.3) APTT 43 H (25.1-36.5) SECONDS Sodium 139 (137-145) mmol/L Potassium 3.6 (3.4-5.1) mmol/L Chloride 104 (98-107) mmol/L Carbon Dioxide 17 L (22-32) mmol/L BUN 17 (9-20) mg/dL Creatinine 0.75 (0.66-1.25) mg/dL Estimated GFR > 60 (>60) mL/min BUN/Creatinine Ratio 22.7 H (6-22) Glucose 138 H (70-99) mg/dL Lactate 3.1 H 2.9 H (0.7-2.1) mmol/L Calcium 9.4 (8.4-10.2) mg/dL Total Bilirubin 3.2 H (0.2-1.3) mg/dL AST 193 H (17-59) IU/L ALT 54 H (<50) IU/L Alkaline Phosphatase 257 H (38-126) U/L Total Protein 9.2 H (6.3-8.2) g/dL Albumin 4.3 (3.5-5.0) g/dL Globulin 4.9 H (1.7-4.1) g/dL Albumin/Globulin Ratio 0.9 L (1.0-2.8) Procalcitonin 0.304 (<0.5) ng/mL Ethyl Alcohol 263 H (<10) mg/dL Blood Type A Positive Antibody Screen Negative Imaging Data CT scan - abdomen/pelvis: Radiologist's Impression: PROCEDURE: CT ANGIO ABD/PEL GI BLEED INDICATIONS: GI Bleed TECHNIQUE: Precontrast imaging was performed. After the administration of intravenous contrast, 2.5 mm sections acquired from the diaphragm to the iliac crests, with arterial phase imaging and delayed phase imaging. 10 mm maximum intensity projection (MIP) coronal and sagittal reformats were then performed. For radiation dose reduction, the following was used: automated exposure control. COMPARISON: [facility], CT, CT CHEST ABD PEL W CON, 12/08/2024, 2:23. [facility], CT, CT ABDOMEN PELVIS W CON, 01/28/2024, 10:10. [facility], CT, CT ABDOMEN PELVIS W CON, 01/11/2024, 7:52. FINDINGS: Image quality: Diagnostic. Abdominal aorta: No aortic aneurysm or evidence of acute aortic syndrome. Mesenteric arteries: Patent without hemodynamically significant stenosis. Renal arteries: Patent without hemodynamically significant stenosis. The left renal artery demonstrates an early bifurcation. Lower chest: Mild para soft gel varices are seen. ABDOMEN: Liver: No solid mass. The liver demonstrates a nodular contour. Gallbladder: No radiopaque gallstones or wall thickening. Biliary ducts: No biliary dilation. Pancreas: No ductal dilation. Spleen: Size is within normal limits. Incidental note is made of an accessory splenule along the hilum of the primary spleen. Adrenal Glands: No adrenal nodules. Kidneys and Ureters: No hydronephrosis. No solid mass. No complex renal cystic lesion which requires follow up. Stomach and Bowel: Normal colonic caliber, without significant wall thickening. Colonic diverticulosis is seen, without findings of active diverticulitis. No dilated loops of small bowel are seen. A normal appendix is noted. Peritoneum: No abnormal intraperitoneal fluid. No free air. Ventral Wall: No hernia. Abdominal Nodes: No retroperitoneal or mesenteric adenopathy by size criteria. Vessels: Aorta, as above. Normal IVC. PELVIS: Pelvic Organs: Unremarkable. Bladder: Unremarkable. Pelvic Nodes: No enlarged lymph nodes. Miscellaneous: There is a mild fat containing left inguinal hernia. Bones: No aggressive osseous abnormality. Focal L5-S1 degenerative change is seen. Milder degenerative changes are seen elsewhere. IMPRESSION: No site of active bleeding can be seen. 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 Additional findings: Accessory splenule Focal L5-S1 degenerative change Diverticulosis, without active diverticulitis Mild fat containing left inguinal hernia Dictated by: Ulices Dickerson M.D. on 12/10/2024 at 14:33 MDM Narrative Medical decision making narrative: MDM CC: Weakness Complicating co-morbidities: Alcohol use disorder, Leelee-Huerta tear Data collected from: Patient previous records Medical records reviewed: Records from ED previously reviewed He is 1 of 2 positive blood cultures probably contaminated, showed possible colitis and cirrhosis, he was started on Cipro and Flagyl but he never picked up medication Differential considered: Alcohol withdrawal GI bleed sepsis Exam documented above, pertinent findings include: Alert 64-year-old male appears chronically ill he is not shaking cooperative for exam guaiac-positive abdomen soft nontender Lab Test results independently reviewed as above. Pertinent findings: CBC shows anemia hemoglobin 9.2 hematocrit 26.1 3 days ago was 10.4/30.4 no leukocytosis CMP normal electrolytes bicarb is low at 17 was previously 16 BUN 17 creatinine 0.75 glucose 138 Lactate today is 3.1-->2.9 previously was 5.2 Procalcitonin 0.304 Bilirubin liver enzymes elevated bilirubin 3.2 AST 193 ALT 54 alk-phos 257 similar to previous likely due to alcohol Independently reviewed EKG as above none Imaging studies independently reviewed: CT angio no active bleeding Consultations: Dr. Steel in ED to see and evaluate patient and accepts kindly Dr. Alvarado surgery updated on patient's symptoms test results agrees to consult and likely due EGD in the morning Treatments: IV fluids Protonix Re-evaluations: Patient remains stable he has had no vomiting no bloody stools Discussion: Patient is 64-year-old male presenting to day with just increasing weakness. Actually did call him to check on him he was discharged with a high lactate and had 1 of 2 positive blood cultures. I think that this is contaminant rather than sepsis. He has no leukocytosis or fever. CT does not show any abnormality. He is guaiac positive and he is mildly anemic. Probably alcoholic gastritis. He has no bright red blood is not vomiting. Agrees to stay in the hospital. At this time I do not think he needs any antibiotics. Repeat blood cultures are pending. Discharge Plan Departure Patient Disposition: Admitted As Inpatient Clinical Impression: GI (gastrointestinal bleed), Elevated lactic acid level, Alcohol use disorder Admit Date/Time: 12/10/24 17:10 Admit Provider: Jarvis Steel V
[2024-12-10 14:18] LABS: Add Manual Diff / Slide Review NO; Hematocrit 26.1 % (41-53); Hemoglobin 9.2 g/dL (13.5-17.5); Lymphocytes Absolute Auto 2500 /uL (1100-4500); Mean Corpuscular HGB Conc 35.2 % (30-36); Mean Corpuscular Hemoglobin 35.5 PG (26-34); Mean Corpuscular Volume 100.9 fL (80-100); Platelet Count 93 X10^3/uL (150-400)
[2024-12-10 14:26] LABS: INR 1.6 (0.9-1.3); Prothrombin Time 17.6 SECONDS (9.4-12.5)
[2024-12-10 14:29] LABS: PTT Partial Thromboplastin Tim 43 SECONDS (25.1-36.5)
[2024-12-10 14:31] LABS: Ethanol (ETOH) 263 mg/dL (<10); Lactate (Lactic Acid) 3.1 mmol/L (0.7-2.1)
[2024-12-10 14:32] LABS: Alanine Aminotransferase 54 IU/L (<50); Albumin 4.3 g/dL (3.5-5.0); Albumin Globulin Ratio 0.9 (1.0-2.8); Alkaline Phosphatase 257 U/L (38-126); Blood Urea Nitrogen 17 mg/dL (9-20); Calcium 9.4 mg/dL (8.4-10.2); Carbon Dioxide 17 mmol/L (22-32); Chloride 104 mmol/L (98-107); Estimated Glomerular Filt Rate > 60 mL/min (>60); Globulin 4.9 g/dL (1.7-4.1); Glucose 138 mg/dL (70-99); HEMOLYSIS < 15 (0-50); Potassium 3.6 mmol/L (3.4-5.1); Sodium 139 mmol/L (137-145); Total Protein 9.2 g/dL (6.3-8.2)
[2024-12-10] MEDS: PANTOPRAZOLE 40 MG VIAL 80 MG IV (14:34)
--- NOTE | 2024-12-10 14:35 | DI.CT.S_ITS ---
PROCEDURE: CT ANGIO ABD/PEL GI BLEED INDICATIONS: GI Bleed TECHNIQUE: Precontrast imaging was performed. After the administration of intravenous contrast, 2.5 mm sections acquired from the diaphragm to the iliac crests, with arterial phase imaging and delayed phase imaging. 10 mm maximum intensity projection (MIP) coronal and sagittal reformats were then performed. For radiation dose reduction, the following was used: automated exposure control. COMPARISON: [facility], CT, CT CHEST ABD PEL W CON, 12/08/2024, 2:23. [facility], CT, CT ABDOMEN PELVIS W CON, 01/28/2024, 10:10. [facility], CT, CT ABDOMEN PELVIS W CON, 01/11/2024, 7:52. FINDINGS: Image quality: Diagnostic. Abdominal aorta: No aortic aneurysm or evidence of acute aortic syndrome. Mesenteric arteries: Patent without hemodynamically significant stenosis. Renal arteries: Patent without hemodynamically significant stenosis. The left renal artery demonstrates an early bifurcation. Lower chest: Mild para soft gel varices are seen. ABDOMEN: Liver: No solid mass. The liver demonstrates a nodular contour. Gallbladder: No radiopaque gallstones or wall thickening. Biliary ducts: No biliary dilation. Pancreas: No ductal dilation. Spleen: Size is within normal limits. Incidental note is made of an accessory splenule along the hilum of the primary spleen. Adrenal Glands: No adrenal nodules. Kidneys and Ureters: No hydronephrosis. No solid mass. No complex renal cystic lesion which requires follow up. Stomach and Bowel: Normal colonic caliber, without significant wall thickening. Colonic diverticulosis is seen, without findings of active diverticulitis. No dilated loops of small bowel are seen. A normal appendix is noted. Peritoneum: No abnormal intraperitoneal fluid. No free air. Ventral Wall: No hernia. Abdominal Nodes: No retroperitoneal or mesenteric adenopathy by size criteria. Vessels: Aorta, as above. Normal IVC. PELVIS: Pelvic Organs: Unremarkable. Bladder: Unremarkable. Pelvic Nodes: No enlarged lymph nodes. Miscellaneous: There is a mild fat containing left inguinal hernia. Bones: No aggressive osseous abnormality. Focal L5-S1 degenerative change is seen. Milder degenerative changes are seen elsewhere. IMPRESSION: No site of active bleeding can be seen. 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 Additional findings: Accessory splenule Focal L5-S1 degenerative change Diverticulosis, without active diverticulitis Mild fat containing left inguinal hernia Dictated by: Ulices Dickerson M.D. on 12/10/2024 at 14:33 Approved by: Ulices Dickerson M.D. on 12/10/2024 at 14:36
[2024-12-10] MEDS: SODIUM CHLORIDE 0.9% 1,000 ML 1000 ML IV ×2 (14:46→16:46)
[2024-12-10 14:49] LABS: Procalcitonin 0.304 ng/mL (<0.5)
[2024-12-10 15:48] LABS: Reflexed Lactate in 2 Hours Y
[2024-12-10 16:32] LABS: Lactate 2HR (Lactic Acid Rflx) 2.9 mmol/L (0.7-2.1)
--- NOTE | 2024-12-10 17:34 | CM.IDA ---
Initial DCP Assessment Patient is 64 y/o male who presents to ED with spouse per recommendation of PCP and recommendation of ED provider due to concern for positive blood culture Gram-positive cocci. Patient had presentation to the ED on 12/07/24 and discharged with antibiotics but did not brass pickler the rx. Patient is a daily ETOH user, BAL was 263 upon arrival. Patient's PCP is Dr. Taylor, patient has Medicare insurance. Patient has upcoming PCP on 12/16/[address] Taylor. Patient has hx of Cirrhosis, Alcohol use disorder, GERD, Shingles, helio-cleaning syndrome, HLD, HTN, PTSD, Depression and Anxiety. COUNSELING DEPARTMENT CHAIR receives consult due to concern for patient's ETOH use and passive SI statements. COUNSELING DEPARTMENT CHAIR enters room to meet with patient, present in room is patient's spouse Chelly. Patient presents as A/Ox4. Patient resides in [place] with spouse, manages ADLs independently, drives. Patient is retired and spends a lot of time at home while is working. Patient states that he drinks at least a bottle of wine a day before lunch time and drinks every 8-10 hours to avoid withdrawal symptoms. Patient endorses that he has not been feeling well since this summer and feeling ill, compounded with his drinking, depression and being alone at home has been overwhelming. Patient states he experiences anxiety, shakiness, and anxiety if he withdrawals from alcohol and he typically drinks to prevent these symptoms. Patient states that he was sober after hospitalization at [facility] in July 2020, and remained sober for about a year. Patient endorses passive SI hx, patient denies current SI or intent to kill self. Patient and spouse state that they openly discuss that if they lose their mental or physical capacities they would like to pass away. In triage patient reports thoughts of drinking, going outside without clothes and dying of hypothermia. At this time, patient is wanting to seek [facility] rehab treatment and denies any intent to kill himself. Patient endorses interest in seeking a therapist and wants to discuss outpatient and inpatient [facility] options further. Patient has been admitted to acute care by hospitalist due to concern for GI Bleed, elevated Lactic acid and ETOH withdrawals. Plan: Patient admitted for further evaluation and treatment, patient to have endoscopy, DCP to f/u with POC and f/u with patient regarding [facility] treatment. NOEMI Pantoja Discharge Planning/Care Management CM Discharge Assessment Start: 12/10/24 17:27 Freq: Status: Active Protocol: Document 12/10/24 17:28 LN (Rec: 12/10/24 17:33 LN [id number]) Discharge Planning Assessment Assigned Discharge NOEMI Diaz Parachute Mender Provider Dr. Taylor Insurance Medicare DPOA/Assigned Chelly [place]/Spouse Designee Name Contact Information [phone] Advance Directives? Yes Advance Directives Yes on File History Provided By Patient,Significant Other,Medical Record Has Patient been No admitted in last 30 days? Prior Living House Arrangements Household Members spouse Type of Drives own vehicle transporation used prior to admit Independent with ADL Yes 's Is patient alert and Yes oriented? Comment Patient is open to [facility] rehab but wants to make sure it is a facility that accepts his insurance. Discharge Plan Drug Rehabilitation
--- NOTE | 2024-12-10 17:44 | P.HP_ITS ---
History of Present Illness History of Present Illness Date Patient Seen: 12/10/24 Time Patient Seen: 17:00 Chief complaint: Sepsis, sent from PCP Narrative: 64-year-old man under the primary care of Ely Pitts PA-C presents reporting 3 days of black tarry stools. The patient was seen in the emergency department on 12/08/2024 with 2 days of abdominal discomfort, shortness of breath and chest pressure. Evaluation was notable for a CT scan noting ascending colonic wall thickening and potential colitis, without overt diverticulitis, and cirrhotic liver, in this patient with a history of chronic alcoholism and known cirrhosis. He was advised to take a diverticulosis diet, take ciprofloxacin and metronidazole. Blood cultures on that presentation showed 1/2 bottles positive for Gram-positive cocci and an elevated lactate of 5.2. He has a history of a Leelee-Huerta tear in 2020 in which he was hospitalized and underwent alcohol withdrawal. He is on meloxicam at home. He denies other nonsteroidal anti-inflammatory [id number] medications or aspirin. He starts drinking Mimosas in the morning and then transitions to cocktails from 4:00 p.m. until bedtime. He had a case of shingles in the right chest in September and was recently started on gabapentin by his quality assurance tester, who also advised him to stop pantoprazole which he was taking at that time. He is seen with his Chelly who assists in providing history along with the patient, who appears mildly confused, and mildly tremulous during the exam. 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) History of varicocele Hypertension Low back pain Measles Mixed hyperlipidemia Nocturia Plantar fasciitis, bilateral Pneumothorax (~2013) Rectal bleeding (02/18/19) Sebaceous cyst Shoulder pain Skin lesions Thrombophlebitis Varicocele (2001) Vision disorder Family History Father Cancer Social History household members: spouse Smoking Status: Never smoker second hand exposure: Yes alcohol intake: current substance use type: does not use Meds Home Medications and Allergies Home Medications ?Medication ?Instructions ?Recorded ?Confirmed ?Type losartan 50 mg tablet 50 mg PO DAILY #90 tabs /11/2012/10/24 Rx gabapentin 300 mg capsule 300 mg PO 3XD 12/07/2412/10 History meloxicam 15 mg tablet 15 mg PO DAILY PRN 12/10/24 History Allergies Allergy/AdvReac Type Severity Reaction Status Date / Time celecoxib (From Celebrex) Allergy Severe SPASM Verified 12/10/24 12:52 amoxicillin Allergy Intermediate Swelling Verified 12/10/24 12:52 of Lip/Tongue/Throat hydrochlorothiazide AdvReac Intermediate hyponatremi Verified 12/10/24 12:52 a lisinopril AdvReac Mild angiodema Verified 12/10/24 12:52 (lips) Review of Systems Review of Systems ROS: Yes All systems reviewed with the patient and are negative except as otherwise documented Exam Vital Signs (past 8 hours): - 12/10/24 13:18 12/10/24 14:54 12/10/24 14:55 Temperature 98.4 F Pulse Rate 81 80 Respiratory Rate 16 Blood Pressure 115/58 L 151/70 H Pulse Oximetry 97 97 Oxygen Delivery Method Room Air 12/10/24 14:55 12/10/24 15:00 12/10/24 15:00 Temperature Pulse Rate 80 78 Respiratory Rate Blood Pressure 139/67 Pulse Oximetry 96 97 Oxygen Delivery Method 12/10/24 15:30 12/10/24 15:30 12/10/24 16:00 Temperature Pulse Rate 73 Respiratory Rate Blood Pressure 122/64 133/66 Pulse Oximetry 94 Oxygen Delivery Method 12/10/24 16:00 12/10/24 16:30 12/10/24 16:30 Temperature Pulse Rate 73 71 Respiratory Rate 26 H 17 Blood Pressure 137/70 Pulse Oximetry 93 95 Oxygen Delivery Method 12/10/24 17:00 12/10/24 17:00 12/10/24 17:30 Temperature Pulse Rate 80 Respiratory Rate 17 Blood Pressure 153/80 H 138/65 Pulse Oximetry 95 Oxygen Delivery Method 12/10/24 17:30 Temperature Pulse Rate 76 Respiratory Rate 22 Blood Pressure Pulse Oximetry 96 Oxygen Delivery Method Oxygen Delivery Method Room Air Narrative Exam Narrative: GENERAL: This is a well-nourished, well-developed patient, mildly anxious, mildly tremulous, mildly confused. HEAD: Atraumatic. Normocephalic. No temporal or scalp tenderness. EYES: Pupils equal round and reactive. Extraocular motions intact. No scleral icterus. No injection or drainage. ENT: Mucous membranes pink and moist. NECK: Trachea midline. No JVD, bruits or lymphadenopathy. Supple, nontender, no meningeal signs. CARDIOVASCULAR: Regular rate and rhythm without murmurs, gallops, or rubs. RESPIRATORY: Clear to auscultation. GASTROINTESTINAL: Abdomen soft, non-tender, nondistended. EXTREMITIES: No clubbing, cyanosis, or edema. BACK: Nontender without deformity or crepitance. No flank tenderness. NEUROLOGIC: Alert, oriented, speech fluent, full upper and lower motor strength, no focal deficits evident. DERMATOLOGIC: No rashes or skin lesions. Objective Imaging Chest/abdomen/pelvis CT 12/08/2024:: Radiologist's impression: Evaluation of the large bowel is limited given the overall under distention of the bowel. Given the limitations, equivocal wall thickening of the sigmoid colon and ascending colon. Differential includes early or mild diverticulitis without complications or portal colopathy. Cirrhosis without mass. Hepatomegaly with fatty infiltration. Normal gallbladder. Appendix is unremarkable. Chest x-ray 12/07/2024:: Radiologist's impression: No acute cardiopulmonary abnormality is seen. Abdomen/pelvis CT angiogram 12/10/2024: : Radiologist's impression: No site of active bleeding can be seen. 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 Additional findings: Accessory splenule Focal L5-S1 degenerative change Diverticulosis, without active diverticulitis Mild fat containing left inguinal hernia Labs 12/10/24 14:00 12/10/24 14:00 Labs: Laboratory Results - last 24 hr 12/10/24 12/10/24 14:00 16:12 WBC 10.5 RBC 2.58 L Hgb 9.2 L Hct 26.1 L MCV 100.9 H MCH 35.5 H MCHC 35.2 RDW 16.2 H Plt Count 93 L Neut % (Auto) 63.5 Lymph % (Auto) 23.4 L [place] % (Auto) 8.9 Eos % (Auto) 3.3 Baso % (Auto) 0.9 Neut # (Auto) 6700 Lymph # (Auto) 2500 [place] # (Auto) 900 Eos # (Auto) 300 Baso # (Auto) 100 PT 17.6 H INR 1.6 H APTT 43 H Sodium 139 Potassium 3.6 Chloride 104 Carbon Dioxide 17 L BUN 17 Creatinine 0.75 Estimated GFR > 60 BUN/Creatinine Ratio 22.7 H Glucose 138 H Lactate 3.1 H 2.9 H Calcium 9.4 Total Bilirubin 3.2 H AST 193 H ALT 54 H Alkaline Phosphatase 257 H Total Protein 9.2 H Albumin 4.3 Globulin 4.9 H Albumin/Globulin Ratio 0.9 L Procalcitonin 0.304 Ethyl Alcohol 263 H Blood Type A Positive Antibody Screen Negative Assessment & Plan Assessment & Plan narrative: 1. Gastrointestinal bleed with melena for the past 3 days. Likely upper source, possible NSAID induced, less likely variceal, less likely Leelee-Huerta, less likely diverticular or colitis. 2. Acute blood loss anemia due to 1. 3. Acute alcohol withdrawal syndrome. 4. Chronic alcohol use disorder. 5. Hypertension, chronic and stable. 6. Post herpetic neuralgia. Chronic and stable. Plan: -admit to ICU -consult surgery for upper endoscopy tomorrow morning -IV fluids -serial hematocrits -transfusion threshold if uncontrolled bleeding or hematocrit falls below 21% -[facility] protocol -phenobarbital 130 mg IV q.6 hours times 3 doses -lorazepam and haloperidol intravenous as needed -start Precedex infusion if uncontrolled alcohol withdrawal -IV thiamine 100 mg IV daily -continue Cipro and metronidazole empirically, likely stop tomorrow DVT prophylaxis: Sequential compression devices Code status: Full code. This is reviewed with the patient on admission with his Chelly, who is his surrogate decision maker Quality MIPS - Admit I confirm the patient?s Advance Care Plan is present, Code status is documented, Surrogate decision maker is in patient?s record [If Yes, STOP here]: Yes MIPS - Meds 'Current medications' to include all prescriptions, [id number] products, herbals, cannabis/cannabidiol products, and vitamin/mineral/dietary (nutritional) supplements. I have utilized all available resources to obtain, update, or review the patient?s current medications. [If Yes, STOP here]: Yes PROFEE Digital Data Analyst Document charge(s): No Charge Codes Initial inpatient/observation care: 69301
[2024-12-10] MEDS: DEXTROSE 5%-0.45% NS 1,000 ML 100 ML IV (18:19)
[2024-12-10] MEDS: CIPROFLOXACIN 400 MG/200 ML PIGGYBACK 200 MG IV (18:28)
[2024-12-10] MEDS: metroNIDAZOLE 500 MG/100 ML PIGGYBACK 100 MG IV (19:43)
[2024-12-10 21:30] LABS: Hematocrit 23.6 % (41-53); Hemoglobin 8.3 g/dL (13.5-17.5)
[2024-12-11] VITALS (38 sets, daily range): BP systolic 116–166; BP diastolic 63–82; PULSE 68–90; RESP 12–34; TEMP 36.1–36.9; O2SAT 91–99
--- NOTE | 2024-12-11 | PATH_ITS ---
[facility] Accession Number: [id number] No. of containers..01 Tissue . 01 Material submitted: . gastrointestinal site - STOMACH, ANTRAL BIOPSY . 01 Clinical history: . R/O H.PYLORI . 01 Diagnosis: STOMACH, ANTRAL BIOPSY: Gastric antral mucosa with no diagnostic alterations. No Helicobacter organisms identified on H/E stain. No intestinal metaplasia, dysplasia, or malignancy identified. [facility] 12/24/20241334 Local . 01 Electronically signed: . Dannie Powell MD, Pathologist NPI- [id number] . 01 Gross description: . Received in formalin with two identifiers and antral biopsy, rule out H. pylori, is a single massey soft tissue fragment 0.4 cm in greatest dimension. Submitted entirely in cassette A1. ([id number]) /AMILCAR 12/24/20241334 Local . 01 Pathologist provided ICD-10: K29.70 . 01 CPT . 535165 Specimen Comment: A courtesy copy of this report has been sent to [facility] Performed at: [address] [address], [place], [place] [id number] MD Dannie Powell MD Phone: [phone]
[2024-12-11] MEDS: metroNIDAZOLE 500 MG/100 ML PIGGYBACK 100 MG IV ×2 (01:22→07:38)
[2024-12-11] MEDS: DEXTROSE 5%-0.45% NS 1,000 ML 100 ML IV ×2 (05:03→16:48)
[2024-12-11 05:26] LABS: Add Manual Diff / Slide Review NO; Hematocrit 24.2 % (41-53); Hemoglobin 8.5 g/dL (13.5-17.5); Lymphocytes Absolute Auto 1100 /uL (1100-4500); Mean Corpuscular HGB Conc 35.1 % (30-36); Mean Corpuscular Hemoglobin 35.6 PG (26-34); Mean Corpuscular Volume 101.4 fL (80-100); Platelet Count 76 X10^3/uL (150-400)
[2024-12-11 05:42] LABS: Blood Urea Nitrogen 11 mg/dL (9-20); Calcium 8.5 mg/dL (8.4-10.2); Carbon Dioxide 19 mmol/L (22-32); Chloride 106 mmol/L (98-107); Estimated Glomerular Filt Rate > 60 mL/min (>60); Glucose 166 mg/dL (70-99); HEMOLYSIS < 15 (0-50); Potassium 3.8 mmol/L (3.4-5.1); Sodium 137 mmol/L (137-145)
[2024-12-11] MEDS: CIPROFLOXACIN 400 MG/200 ML PIGGYBACK 200 MG IV ×2 (06:05→18:00)
--- NOTE | 2024-12-11 06:45 | PM.CN.IH.1 ---
History of Present Illness Consult details Date Patient Seen: 12/11/24 Time Patient Seen: 06:46 Chief complaint: Sepsis, sent from PCP Reason for consult: Melena Requesting provider: Tyesha Frausto Narrative: 64yo M, h/o EtOH, Leelee-Huerta tear (08/2020 [facility]), admitted through ED last night with GPC sepsis. Had retching after recent oral contrast 3 days ago. Denies NSAIDs, tobacco. EtOH is two mimosas in the morning and 3-4 cocktails in the evening. Recent shingles neuralgia. Hgb 8. Hemodynamically stable this morning. 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 From ED: Patient is a 64-year-old male history of alcohol use disorder, Leelee-Huerta tear recently diagnosed with colitis presents today at my request. He actually had 1 of 2 positive blood cultures for g positive cocci he also had elevated lactate 5.2. Ultimately discharged home on Cipro and Flagyl he reports he did not pick them up. He has not taken any of the antibiotics. He reports that he continues to feel weak and shaky he has had numerous episodes of black tarry stool. Not really having anymore abdominal pain no chest pain no shortness of breath no significant weakness. Meds Home Medications and Allergies Home Medications ?Medication ?Instructions ?Recorded ?Confirmed ?Type losartan 50 mg tablet 50 mg PO DAILY #90 tabs 06/24/24 12/10/24 Rx gabapentin 300 mg capsule 300 mg PO 3XD 12/07/24 12/10/24 History meloxicam 15 mg tablet 15 mg PO DAILY PRN 12/10/24 History Allergies Allergy/AdvReac Type Severity Reaction Status Date / Time celecoxib (From Celebrex) Allergy Severe SPASM Verified 12/10/24 12:52 amoxicillin Allergy Intermediate Swelling Verified 12/10/24 12:52 of Lip/Tongue/Throat hydrochlorothiazide AdvReac Intermediate hyponatremi Verified 12/10/24 12:52 a lisinopril AdvReac Mild angiodema Verified 12/10/24 12:52 (lips) Exam Vital Signs (past 8 hours): - 12/10/24 23:00 12/11/24 00:00 12/11/24 01:00 Pulse Rate 77 76 78 Respiratory Rate 17 Blood Pressure Pulse Oximetry 98 96 95 Oxygen Flow Rate 12/11/24 02:00 12/11/24 03:29 12/11/24 03:32 Pulse Rate 83 81 84 Respiratory Rate 17 16 Blood Pressure 154/75 H 150/73 H Pulse Oximetry 97 95 Oxygen Flow Rate 12/11/24 04:00 12/11/24 05:00 12/11/24 06:00 Pulse Rate 85 78 80 Respiratory Rate 15 17 17 Blood Pressure 161/79 H 146/76 H 155/77 H Pulse Oximetry 97 97 95 Oxygen Flow Rate 2 2 2 Oxygen Delivery Method Nasal Cannula Oxygen Flow Rate 2 Narrative Exam Narrative: Const General: healthy appearing, comfortable and no acute distress Orientation: alert and oriented x3 HENMT Ears: hearing grossly normal bilaterally Eyes Visual Wallace: normal visual wallace by confrontation Conjunctivae: conjunctivae normal Sclera: sclerae normal EOM: EOM intact bilaterally Resp Effort & Inspection: normal respiratory effort and able to speak in complete sentences Cardio Rate: regular rate GI Palpation: soft (NT) Extrem General: no pedal edema and no calf tenderness Objective Labs 12/11/24 05:00 12/11/24 05:00 Labs: Laboratory Results - last 24 hr 12/10/24 12/10/24 12/10/24 14:00 16:12 21:23 WBC 10.5 RBC 2.58 L Hgb 9.2 L 8.3 L Hct 26.1 L 23.6 L MCV 100.9 H MCH 35.5 H MCHC 35.2 RDW 16.2 H Plt Count 93 L Neut % (Auto) 63.5 Lymph % (Auto) 23.4 L [place] % (Auto) 8.9 Eos % (Auto) 3.3 Baso % (Auto) 0.9 Neut # (Auto) 6700 Lymph # (Auto) 2500 [place] # (Auto) 900 Eos # (Auto) 300 Baso # (Auto) 100 PT 17.6 H INR 1.6 H APTT 43 H Sodium 139 Potassium 3.6 Chloride 104 Carbon Dioxide 17 L BUN 17 Creatinine 0.75 Estimated GFR > 60 BUN/Creatinine Ratio 22.7 H Glucose 138 H Lactate 3.1 H 2.9 H Calcium 9.4 Total Bilirubin 3.2 H AST 193 H ALT 54 H Alkaline Phosphatase 257 H Total Protein 9.2 H Albumin 4.3 Globulin 4.9 H Albumin/Globulin Ratio 0.9 L Procalcitonin 0.304 Ethyl Alcohol 263 H Blood Type A Positive Antibody Screen Negative 12/11/24 05:00 WBC 6.6 RBC 2.38 L Hgb 8.5 L Hct 24.2 L MCV 101.4 H MCH 35.6 H MCHC 35.1 RDW 15.8 H Plt Count 76 L Neut % (Auto) 73.5 Lymph % (Auto) 16.0 L [place] % (Auto) 7.6 Eos % (Auto) 2.1 Baso % (Auto) 0.8 Neut # (Auto) 4900 Lymph # (Auto) 1100 [place] # (Auto) 500 Eos # (Auto) 100 Baso # (Auto) 100 PT INR APTT Sodium 137 Potassium 3.8 Chloride 106 Carbon Dioxide 19 L BUN 11 Creatinine 0.56 L Estimated GFR > 60 BUN/Creatinine Ratio 19.6 Glucose 166 H Lactate Calcium 8.5 Total Bilirubin AST ALT Alkaline Phosphatase Total Protein Albumin Globulin Albumin/Globulin Ratio Procalcitonin Ethyl Alcohol Blood Type Antibody Screen [facility] Medical History Alcohol abuse Alcohol abuse, 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) Alcoholic liver disease Anxiety Cataracts, bilateral Chicken pox Diverticulosis Dizziness after extension of neck Elevated liver enzymes Fractures GERD (gastroesophageal reflux disease) Herniated nucleus pulposus, L3-4 right Herniated nucleus pulposus, L5-S1, right Highly echogenic liver on ultrasound (07/2020) 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) History of varicocele Hypertension Low back pain Measles Mixed hyperlipidemia Nocturia Plantar fasciitis, bilateral Pneumothorax (~2013) Rectal bleeding (02/18/19) Sebaceous cyst Shoulder pain Skin lesions Thrombophlebitis Varicocele (2001) Vision disorder Family History Father Cancer Social History household members: spouse Tobacco & Substance Use Smoking Status: Never smoker second hand exposure: Yes alcohol intake: current substance use type: does not use Assessment & Plan Assessment and plan (1) GI (gastrointestinal bleed): Qualifiers: GI bleed type/associated pathology: melena Qualified Code(s): K92.1 - Melena Status: Acute Plan Plan EGD today to evaluate EG junction with h/o MW tear. The risks, benefits and options regarding the procedure were explained to the patient in detail. Risk discussion included but not limited to: perforation, bleeding, missed lesion. The patient was encouraged to ask questions and they were answered to their satisfaction. The patient understands and is agreeable to proceed. Time-Based Coding :: [TOTAL MINUTES] spent with patient and on the chart (including review of chart, obtaining history, exam, reviewing outside data, placing orders, documenting exam and treatment plan, and counseling patient) on [DATE]. PROFEE Charge Codes Inpatient or Observation consultation: [id number]
--- NOTE | 2024-12-11 08:43 | P.PN_ITS ---
Subjective Subjective Interval history: Summary: 64-year-old man under the primary care of Ely Pitts PA-C presents reporting 3 days of black tarry stools. The patient was seen in the emergency department on 12/08/2024 with 2 days of abdominal discomfort, shortness of breath and chest pressure. Evaluation was notable for a CT scan noting ascending colonic wall thickening and potential colitis, without overt diverticulitis, and cirrhotic liver, in this patient with a history of chronic alcoholism and known cirrhosis. He was advised to take a diverticulosis diet, take ciprofloxacin and metronidazole. Blood cultures on that presentation showed 1/2 bottles positive for Gram-positive cocci and an elevated lactate of 5.2. He has a history of a Leelee-Huerta tear in 2020 in which he was hospitalized and underwent alcohol withdrawal. He is on meloxicam at home. He denies other nonsteroidal anti-inflammatory spdd-npb-apdvcqy medications or aspirin. He starts drinking Mimosas in the morning and then transitions to cocktails from 4:00 p.m. until bedtime. He had a case of shingles in the right chest in September and was recently started on gabapentin by his solar mechanical engineer, who also advised him to stop pantoprazole which he was taking at that time. He is seen with his Chelly who assists in providing history along with the patient, who appears mildly confused, and mildly tremulous during the exam. S: He was doing relatively well, no hallucinations. He was a little shaky. He denies a history of withdrawal seizures. He has had black stool for 5 days. O: NAD, alert and oriented. Fluent speech. Shakey. Lungs are clear, normal rate and effort. Heart is regular, no murmur gallop or rub. Abdomen is soft, non distended. Extremities are free of edema. IMAGING: Chest/abdomen/pelvis CT 12/08/2024:: Radiologist's impression: Evaluation of the large bowel is limited given the overall under distention of the bowel. Given the limitations, equivocal wall thickening of the sigmoid colon and ascending colon. Differential includes early or mild diverticulitis without complications or portal colopathy. Cirrhosis without mass. Hepatomegaly with fatty infiltration. Normal gallbladder. Appendix is unremarkable. Chest x-ray 12/07/2024:: Radiologist's impression: No acute cardiopulmonary abnormality is seen. Abdomen/pelvis CT angiogram 12/10/2024: : Radiologist's impression: No site of active bleeding can be seen. 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 Additional findings: Accessory splenule Focal L5-S1 degenerative change Diverticulosis, without active diverticulitis Mild fat containing left inguinal hernia A/P: 1. Gastrointestinal bleed with melena for the past 3 days. Likely upper source, possible NSAID induced, less likely variceal, less likely Leelee-Huerta, less likely diverticular or colitis. 2. Acute blood loss anemia due to 1. 3. Acute alcohol withdrawal syndrome. 4. Chronic alcohol use disorder. 5. Hypertension, chronic and stable. 6. Post herpetic neuralgia. Chronic and stable. Plan: -admit to ICU -Monitor Hb -serial hematocrits (stable). -transfusion threshold if uncontrolled bleeding or hematocrit falls below 21% -CIWA protocol, continue. -phenobarbital 130 mg IV q.6 hours times 3 doses (then stop) -lorazepam and haloperidol intravenous as needed -start Precedex infusion if uncontrolled alcohol withdrawal -IV thiamine 100 mg IV daily -continue Cipro and metronidazole empirically, likely stop tomorrow -EGD today. DVT prophylaxis: Sequential compression devices Code status: Full code. This is reviewed with the patient on admission with his Chelly, who is his surrogate decision maker Exam Vital Signs (past 8 hours): - 12/11/24 01:00 12/11/24 02:00 12/11/24 03:29 Temperature Pulse Rate 78 83 81 Respiratory Rate 17 Blood Pressure 154/75 H Pulse Oximetry 95 97 95 Oxygen Flow Rate 12/11/24 03:32 12/11/24 04:00 12/11/24 05:00 Temperature Pulse Rate 84 85 78 Respiratory Rate 16 15 17 Blood Pressure 150/73 H 161/79 H 146/76 H Pulse Oximetry 97 97 Oxygen Flow Rate 2 2 12/11/24 06:00 12/11/24 06:46 12/11/24 07:00 Temperature Pulse Rate 80 86 Respiratory Rate 17 26 H Blood Pressure 155/77 H 149/77 H Pulse Oximetry 95 99 Oxygen Flow Rate 2 12/11/24 07:00 12/11/24 07:30 12/11/24 07:30 Temperature Pulse Rate 80 79 Respiratory Rate 15 13 Blood Pressure 145/76 H Pulse Oximetry 97 98 Oxygen Flow Rate 12/11/24 08:00 12/11/24 08:00 12/11/24 08:30 Temperature Pulse Rate 86 80 Respiratory Rate 19 23 Blood Pressure 160/80 H Pulse Oximetry 94 95 Oxygen Flow Rate 12/11/24 08:42 Temperature 98.5 F Pulse Rate Respiratory Rate Blood Pressure Pulse Oximetry Oxygen Flow Rate Oxygen Delivery Method Nasal Cannula Oxygen Flow Rate 2 Objective Labs 12/11/24 05:00 12/11/24 05:00 Labs: Laboratory Results - last 24 hr 12/10/24 12/10/24 12/10/24 14:00 16:12 21:23 WBC 10.5 RBC 2.58 L Hgb 9.2 L 8.3 L Hct 26.1 L 23.6 L MCV 100.9 H MCH 35.5 H MCHC 35.2 RDW 16.2 H Plt Count 93 L Neut % (Auto) 63.5 Lymph % (Auto) 23.4 L [place] % (Auto) 8.9 Eos % (Auto) 3.3 Baso % (Auto) 0.9 Neut # (Auto) 6700 Lymph # (Auto) 2500 [place] # (Auto) 900 Eos # (Auto) 300 Baso # (Auto) 100 PT 17.6 H INR 1.6 H APTT 43 H Sodium 139 Potassium 3.6 Chloride 104 Carbon Dioxide 17 L BUN 17 Creatinine 0.75 Estimated GFR > 60 BUN/Creatinine Ratio 22.7 H Glucose 138 H Lactate 3.1 H 2.9 H Calcium 9.4 Total Bilirubin 3.2 H AST 193 H ALT 54 H Alkaline Phosphatase 257 H Total Protein 9.2 H Albumin 4.3 Globulin 4.9 H Albumin/Globulin Ratio 0.9 L Procalcitonin 0.304 Ethyl Alcohol 263 H Blood Type A Positive Antibody Screen Negative 12/11/24 05:00 WBC 6.6 RBC 2.38 L Hgb 8.5 L Hct 24.2 L MCV 101.4 H MCH 35.6 H MCHC 35.1 RDW 15.8 H Plt Count 76 L Neut % (Auto) 73.5 Lymph % (Auto) 16.0 L [place] % (Auto) 7.6 Eos % (Auto) 2.1 Baso % (Auto) 0.8 Neut # (Auto) 4900 Lymph # (Auto) 1100 [place] # (Auto) 500 Eos # (Auto) 100 Baso # (Auto) 100 PT INR APTT Sodium 137 Potassium 3.8 Chloride 106 Carbon Dioxide 19 L BUN 11 Creatinine 0.56 L Estimated GFR > 60 BUN/Creatinine Ratio 19.6 Glucose 166 H Lactate Calcium 8.5 Total Bilirubin AST ALT Alkaline Phosphatase Total Protein Albumin Globulin Albumin/Globulin Ratio Procalcitonin Ethyl Alcohol Blood Type Antibody Screen [facility] Medical History Alcohol abuse Alcohol abuse, 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) Alcoholic liver disease Anxiety Cataracts, bilateral Chicken pox Diverticulosis Dizziness after extension of neck Elevated liver enzymes Fractures GERD (gastroesophageal reflux disease) Herniated nucleus pulposus, L3-4 right Herniated nucleus pulposus, L5-S1, right Highly echogenic liver on ultrasound (07/2020) 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) History of varicocele Hypertension Low back pain Measles Mixed hyperlipidemia Nocturia Plantar fasciitis, bilateral Pneumothorax (~2013) Rectal bleeding (02/18/19) Sebaceous cyst Shoulder pain Skin lesions Thrombophlebitis Varicocele (2001) Vision disorder Family History Father Cancer Social History household members: spouse Smoking Status: Never smoker second hand exposure: Yes alcohol intake: current substance use type: does not use Assessment & Plan Time-Based Coding :: [TOTAL MINUTES] spent with patient and on the chart (including review of chart, obtaining history, exam, reviewing outside data, placing orders, documenting exam and treatment plan, and counseling patient) on [DATE].
[2024-12-11] MEDS: THIAMINE 100 MG in SODIUM CHLORIDE 0.9% 100 ML 404 MG IV (10:14)
[2024-12-11] MEDS: PANTOPRAZOLE 40 MG VIAL IV ×2 (10:14→21:10)
--- NOTE | 2024-12-11 11:08 | P.OP.EGD_ITS ---
Operative Date/Time/Diagnoses Date of procedure: 12/11/24 Time of procedure: 11:32 Pre-op diagnosis: Melena Post-op diagnosis: other (Severe esophagitis, LA Grade D, esophageal varices, clinical Nance's no biopsied due varices, 2cm hiatal hernia, small Leelee- Huerta tear with adherent clot, severe gastritis, clinical H pylori, duodenal ulcer with adherent clot) Procedure & Clinicians Study performed: EGD with biopsy Same procedure(s) as scheduled: Yes Indications: 64yo M, melena, h/o Leelee-Huerta tear Surgeon: Prashant Ryan Anesthesia Type: MAC +/- Procedure Notes SCOAP/Timeout: Performed Procedure in detail: EGD Informed consent was obtained. The procedure, its risks, benefits, and alternatives were discussed. Patient understood and agreed to proceed. The patient was placed in the left lateral decubitus position with head elevated. Sedation given per anesthesia. The video endoscope was inserted into the oropharynx and guided under direct vision into the esophagus, stomach, and duodenum which were carefully examined. The scope was retroflexed to examine the hiatus and gastroesophageal junction. Antral biopsies were obtained for Helicobacter pylori. The patient tolerated the procedure very well. There were no apparent complications. Significant EGD findings: Z-line noted at: 37cm Main etiology of GI bleed: 1cm duodenal ulcer, just inside pylorus, large adherent clot, stigmata of recent bleed, clot left in place, not actively bleeding, high risk for re-bleed Severe diffuse gastritis, clinical H pylori, antral biopsies taken 2cm hiatal hernia Small Leelee-Huerta tear with adherent clot, stigmata of recent bleeding Large esophageal varices, non-bleeding Severe LA Grade D esophagitis, not bleeding, clinical Nance's, not biopsied due to varices Findings: Nance's esophagus, duodenal ulcer, gastritis, hiatal hernia and other findings (MWT) Specimen(s): other (antral biopsies) Complications: none Impression: GI bleed secondary to duodenal ulcer, clinical H pylori, severe diffuse gastritis, 2cm hiatal hernia, small Leelee-Huerta tear with clot, severe LA Grade D esophagitis, clinical Nance's, esophageal varices Post-procedure Recommendations: Will call with biopsy results Plan for aftercare: PACU then davila Follow up: as needed Disposition: PACU
[2024-12-11] MEDS: LACTATED RINGERS 1,000 ML 42 ML IV (11:46)
--- NOTE | 2024-12-11 12:45 | PC.NURSE ---
Addendum entered by Bubba Mills RN 12/11/24 13:56: 1345 DR POLANCO AT BEDSIDE TO DISCUSS PLAN OF CARE. REQUESTING PATIENT REMAIN NPO BESIDES ICE CHIPS/ WATER/ PILLS. ALL QUESTIONS ANSWERED BY MD. CARE ONGOING. PLAN TO RESTART HOME MEDICATIONS. Addendum entered by Bubba Mills RN 12/11/24 12:47: 1200 ARRIVED FROM PACU. A/OX4. NO C/O SOB OR S/S OF RESPI DISTRESS. ROOM AIR. NO C/O PAIN. SEE VITALS. AT BEDSIDE. PATIENT ABLE TO AMBULATE TO BATHROOM FOR BM. PENDING DIET ORDER. CARE ONGOING. Original Note: 1030 TAKEN DOWN TO OR BY OR, RN
[2024-12-11] MEDS: BISMUTH SUBSALICYLATE 525 MG/30 ML SUSP PO ×3 (13:17→21:10)
[2024-12-11] MEDS: SUCRALFATE 1 GM/10 ML ORAL SUSP PO ×2 (13:17→18:01)
[2024-12-11 18:11] LABS: Add Manual Diff / Slide Review NO; Hematocrit 21.9 % (41-53); Hemoglobin 7.8 g/dL (13.5-17.5); Lymphocytes Absolute Auto 1000 /uL (1100-4500); Mean Corpuscular HGB Conc 35.6 % (30-36); Mean Corpuscular Hemoglobin 36.1 PG (26-34); Mean Corpuscular Volume 101.3 fL (80-100); Platelet Count 69 X10^3/uL (150-400)
[2024-12-11 18:36] LABS: Blood Urea Nitrogen 9 mg/dL (9-20); Calcium 8.3 mg/dL (8.4-10.2); Carbon Dioxide 23 mmol/L (22-32); Chloride 103 mmol/L (98-107); Estimated Glomerular Filt Rate > 60 mL/min (>60); Glucose 160 mg/dL (70-99); HEMOLYSIS < 15 (0-50); Potassium 3.2 mmol/L (3.4-5.1); Sodium 134 mmol/L (137-145)
[2024-12-11 23:35] LABS: Hematocrit 21.6 % (41-53); Hemoglobin 7.6 g/dL (13.5-17.5)
[2024-12-12] VITALS (21 sets, daily range): BP systolic 119–151; BP diastolic 57–78; PULSE 66–95; RESP 13–21; TEMP 36.4–37.4; O2SAT 92–97
[2024-12-12] MEDS: SUCRALFATE 1 GM/10 ML ORAL SUSP PO ×5 (00:01→20:41)
[2024-12-12] MEDS: DEXTROSE 5%-0.45% NS 1,000 ML 100 ML IV (01:22)
[2024-12-12 05:19] LABS: Add Manual Diff / Slide Review NO; Hematocrit 23.9 % (41-53); Hemoglobin 8.5 g/dL (13.5-17.5); Lymphocytes Absolute Auto 1100 /uL (1100-4500); Mean Corpuscular HGB Conc 35.4 % (30-36); Mean Corpuscular Hemoglobin 36.0 PG (26-34); Mean Corpuscular Volume 101.6 fL (80-100); Platelet Count 71 X10^3/uL (150-400)
[2024-12-12 05:31] LABS: Blood Urea Nitrogen 7 mg/dL (9-20); Calcium 8.5 mg/dL (8.4-10.2); Carbon Dioxide 21 mmol/L (22-32); Chloride 104 mmol/L (98-107); Estimated Glomerular Filt Rate > 60 mL/min (>60); Glucose 159 mg/dL (70-99); HEMOLYSIS < 15 (0-50); Potassium 3.3 mmol/L (3.4-5.1); Sodium 135 mmol/L (137-145)
[2024-12-12] MEDS: CIPROFLOXACIN 400 MG/200 ML PIGGYBACK 200 MG IV ×2 (05:50→18:18)
[2024-12-12 06:15] LABS: MRSA (Nasal) PCR NOT DETECTED (Not Detect)
--- NOTE | 2024-12-12 06:47 | PC.NURSE ---
[facility] Summary-Patient has been A/Ox4, CIWA 1-2, IV Ativan given for anxiety. No s/s bleeding, no N/V, or dark stool. AM H/H 8.5/23.9. SR, VSS. SBA, sat in chair for few hours.
[2024-12-12 08:04] LABS: Magnesium 1.5 mg/dL (1.6-2.3)
[2024-12-12] MEDS: MULTIVITAMIN 1 TABLET 1 TAB PO (08:41)
[2024-12-12] MEDS: PANTOPRAZOLE 40 MG VIAL IV ×2 (08:41→20:41)
[2024-12-12] MEDS: POTASSIUM CHLORIDE 20 MEQ TAB 40 MEQ PO ×2 (08:42→20:36)
[2024-12-12] MEDS: BISMUTH SUBSALICYLATE 525 MG/30 ML SUSP PO ×3 (08:43→16:55)
[2024-12-12] MEDS: THIAMINE 100 MG in SODIUM CHLORIDE 0.9% 100 ML 404 MG IV (09:58)
--- NOTE | 2024-12-12 11:36 | P.PN_ITS ---
Subjective Subjective Date Patient Seen: 12/12/24 Time Patient Seen: 11:30 Interval history: Patient is sitting in a chair at bedside states he is feeling better and he wants to know why can not eat or advanced or walk around in the hallways. Patient is postop day 1. EGD was noted to have severe esophagitis with varices hiatal hernia with a Leelee-Huerta tear severe gastritis with a 1 cm duodenal ulcer with clot overlying. Patient states he has had no abdominal pain no nausea or vomiting and he has had no black melanotic stools. Morning laboratory shows WBC of 7.1 hemoglobin is increased 8.5 hematocrit is increased the 23.9 platelets are 71,000. Sodium is 135 potassium 3.5 chloride 104 bicarb is 21 BUN 7 creatinine 0.55 random blood sugar is 159 Vitals: Temperature is 98.6? pulse 79 respirations 15 BP is 150/71 SaO2 is 93% on room air Heart regular rate and rhythm without murmurs. Lungs are clear to auscultation poor inspiratory and expiratory effort poor chest wall motion noted abdomen is soft nondistended no masses or peritoneal signs Impression: Severe upper GI bleed postop day 1. EGD with severe esophagitis varices Leelee-Huerta tear gastritis and 1 cm duodenal ulcer Alcohol abuse Portal hypertension Plan: Discussed with the patient the findings and discuss portal hypertension and cirrhosis he states he has gotten through this before he that he will do it again or swallow questioning why he has not been started on diet. Discussed with the patient H2 blockers antacids ulcerogenic foods meds activities diet cessation of alcohol. Patient is appears to be extremely reluctant to follow guidelines. We will follow patient with medicine no need for emergent surgical intervention if patient has any worsening bleeding possibly would be transfer to a tertiary institution for care of the varices. Exam Vital Signs (past 8 hours): - 12/12/24 04:00 12/12/24 04:04 12/12/24 04:30 Temperature Pulse Rate 95 H 85 Respiratory Rate 18 Blood Pressure Pulse Oximetry 93 Oxygen Delivery Method Room Air Oxygen Flow Rate 12/12/24 05:00 12/12/24 05:00 12/12/24 05:00 Temperature Pulse Rate 79 79 Respiratory Rate 13 13 Blood Pressure 134/65 134/65 Pulse Oximetry 94 94 Oxygen Delivery Method Oxygen Flow Rate 12/12/24 05:30 12/12/24 06:00 12/12/24 06:00 Temperature Pulse Rate 78 83 Respiratory Rate 14 16 Blood Pressure 145/71 H Pulse Oximetry 94 92 Oxygen Delivery Method Oxygen Flow Rate 12/12/24 06:30 12/12/24 07:00 12/12/24 07:00 Temperature Pulse Rate 77 80 Respiratory Rate 14 13 Blood Pressure 150/71 H Pulse Oximetry 92 93 Oxygen Delivery Method Oxygen Flow Rate 12/12/24 07:30 12/12/24 08:00 12/12/24 08:58 Temperature 98.6 F Pulse Rate 79 Respiratory Rate 15 Blood Pressure Pulse Oximetry 93 Oxygen Delivery Method Room Air Oxygen Flow Rate 12/12/24 09:00 12/12/24 10:00 12/12/24 11:00 Temperature 97.6 F 99.4 F Pulse Rate 87 81 66 Respiratory Rate 15 15 14 Blood Pressure 131/63 151/71 H Pulse Oximetry 97 97 92 Oxygen Delivery Method Oxygen Flow Rate 0 Oxygen Delivery Method Room Air Oxygen Flow Rate 0 Objective Labs 12/12/24 04:11 12/12/24 04:11 Labs: Laboratory Results - last 24 hr 12/11/24 12/11/24 12/12/24 18:00 23:23 04:10 WBC 6.4 RBC 2.16 L Hgb 7.8 L 7.6 L Hct 21.9 L 21.6 L MCV 101.3 H MCH 36.1 H MCHC 35.6 RDW 15.9 H Plt Count 69 L Neut % (Auto) 73.2 Lymph % (Auto) 15.6 L Andrew % (Auto) 7.9 Eos % (Auto) 2.7 Baso % (Auto) 0.6 Neut # (Auto) 4700 Lymph # (Auto) 1000 L Andrew # (Auto) 500 Eos # (Auto) 200 Baso # (Auto) 0 Sodium 134 L Potassium 3.2 L Chloride 103 Carbon Dioxide 23 BUN 9 Creatinine 0.53 L Estimated GFR > 60 BUN/Creatinine Ratio 17.0 Glucose 160 H Calcium 8.3 L Magnesium Nasal Screen MRSA (PCR) Not detected 12/12/24 04:11 WBC 7.1 RBC 2.35 L Hgb 8.5 L Hct 23.9 L MCV 101.6 H MCH 36.0 H MCHC 35.4 RDW 15.5 H Plt Count 71 L Neut % (Auto) 71.8 Lymph % (Auto) 15.9 L Andrew % (Auto) 8.8 Eos % (Auto) 2.9 Baso % (Auto) 0.6 Neut # (Auto) 5100 Lymph # (Auto) 1100 Andrew # (Auto) 600 Eos # (Auto) 200 Baso # (Auto) 0 Sodium 135 L Potassium 3.3 L Chloride 104 Carbon Dioxide 21 L BUN 7 L Creatinine 0.55 L Estimated GFR > 60 BUN/Creatinine Ratio 12.7 Glucose 159 H Calcium 8.5 Magnesium 1.5 L Nasal Screen MRSA (PCR) ON LICENSE OF [facility] Medical History Alcohol abuse Alcohol abuse, 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) Alcoholic liver disease Anxiety Cataracts, bilateral Chicken pox Diverticulosis Dizziness after extension of neck Elevated liver enzymes Fractures GERD (gastroesophageal reflux disease) Herniated nucleus pulposus, L3-4 right Herniated nucleus pulposus, L5-S1, right Highly echogenic liver on ultrasound (07/2020) 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) History of varicocele Hypertension Low back pain Measles Mixed hyperlipidemia Nocturia Plantar fasciitis, bilateral Pneumothorax (~2013) Rectal bleeding (02/18/19) Sebaceous cyst Shoulder pain Skin lesions Thrombophlebitis Varicocele (2001) Vision disorder Family History Father Cancer Social History household members: spouse Smoking Status: Never smoker second hand exposure: Yes alcohol intake: current substance use type: does not use Assessment & Plan Time-Based Coding :: [TOTAL MINUTES] spent with patient and on the chart (including review of chart, obtaining history, exam, reviewing outside data, placing orders, documenting exam and treatment plan, and counseling patient) on [DATE]. PROFEE Safety Director Document charge(s): Yes
[2024-12-12] MEDS: MAGNESIUM SULFATE 2 GM/50 ML PIGGYBACK IV (11:42)
--- NOTE | 2024-12-12 11:53 | PC.NURSE ---
Addendum entered by Bubba Mills RN 12/12/24 11:57: ALSO STATES OK TO D/C TELEMETRY ORDER Original Note: 1130 DR WONG IN TO UPDATE PATIENT ON PLAN OF CARE AND ANSWER ALL QUESTIONS. PLAN TO ORDER CLEAR LIQUID DIET. DR DORMAN NOTIFIED. STATES OK TO D/C D5 1/2 NS AND DOWNGRADE PATIENT TO ACUTE CARE.
[2024-12-12] MEDS: MAG HYDROX/ALUM/SIMETH 30 ML UDC PO ×2 (16:55→20:41)
--- NOTE | 2024-12-12 16:57 | PM.PN.IH.1 ---
Subjective Subjective Date Patient Seen: 12/12/24 Time Patient Seen: 07:35 Interval history: Patient is sitting up in bed stating feeling better, and has advanced clear liquid diet today. No further bleeding reported. Patient is s/p EGD noted to have severe esophagitis with varices hiatal hernia with a Leelee-Huerta tear severe gastritis with a 1 cm duodenal ulcer with clot overlying. Patient states he has had no abdominal pain no nausea or vomiting and he has had no black melanotic stools. Vitals: Temperature is 98.6? pulse 79 respirations 15 BP is 150/71 SaO2 is 93% on room air Heart regular rate and rhythm without murmurs. Lungs are clear to auscultation poor inspiratory and expiratory effort poor chest wall motion noted abdomen is soft nondistended no masses or peritoneal signs Impression: -Severe upper GI bleed postop day 1. EGD with severe esophagitis varices Leelee-Huerta tear gastritis and 1 cm duodenal ulcer -Alcohol use disorder -Portal hypertension with esophageal varices Plan: -advance diet per surgery -PPI b.i.d. -H.pylori therapy with ciprofloxacin, Pepto-Bismol, metronidazole -variceal prophylaxis with beta-blockers -if clinically worsening for require transfer to tertiary level facility Exam Vital Signs (past 8 hours): - 12/12/24 08:58 12/12/24 09:00 12/12/24 10:00 Temperature 98.6 F 97.6 F Pulse Rate 87 81 Respiratory Rate 15 15 Blood Pressure 131/63 151/71 H Pulse Oximetry 97 97 Oxygen Delivery Method Oxygen Flow Rate 12/12/24 11:00 12/12/24 12:00 12/12/24 12:00 Temperature 99.4 F 99.4 F Pulse Rate 66 82 Respiratory Rate 14 21 Blood Pressure 149/70 H Pulse Oximetry 92 97 Oxygen Delivery Method Room Air Oxygen Flow Rate 0 0 12/12/24 16:10 Temperature 99.4 F Pulse Rate 85 Respiratory Rate 18 Blood Pressure 145/71 H Pulse Oximetry 97 Oxygen Delivery Method Oxygen Flow Rate 0 Oxygen Delivery Method Room Air Oxygen Flow Rate 0 Objective Labs 12/12/24 04:11 12/12/24 04:11 Labs: Laboratory Results - last 24 hr 12/11/24 12/11/24 12/12/24 18:00 23:23 04:10 WBC 6.4 RBC 2.16 L Hgb 7.8 L 7.6 L Hct 21.9 L 21.6 L MCV 101.3 H MCH 36.1 H MCHC 35.6 RDW 15.9 H Plt Count 69 L Neut % (Auto) 73.2 Lymph % (Auto) 15.6 L Fountain % (Auto) 7.9 Eos % (Auto) 2.7 Baso % (Auto) 0.6 Neut # (Auto) 4700 Lymph # (Auto) 1000 L Fountain # (Auto) 500 Eos # (Auto) 200 Baso # (Auto) 0 Sodium 134 L Potassium 3.2 L Chloride 103 Carbon Dioxide 23 BUN 9 Creatinine 0.53 L Estimated GFR > 60 BUN/Creatinine Ratio 17.0 Glucose 160 H Calcium 8.3 L Magnesium Nasal Screen MRSA (PCR) Not detected 12/12/24 04:11 WBC 7.1 RBC 2.35 L Hgb 8.5 L Hct 23.9 L MCV 101.6 H MCH 36.0 H MCHC 35.4 RDW 15.5 H Plt Count 71 L Neut % (Auto) 71.8 Lymph % (Auto) 15.9 L Fountain % (Auto) 8.8 Eos % (Auto) 2.9 Baso % (Auto) 0.6 Neut # (Auto) 5100 Lymph # (Auto) 1100 Fountain # (Auto) 600 Eos # (Auto) 200 Baso # (Auto) 0 Sodium 135 L Potassium 3.3 L Chloride 104 Carbon Dioxide 21 L BUN 7 L Creatinine 0.55 L Estimated GFR > 60 BUN/Creatinine Ratio 12.7 Glucose 159 H Calcium 8.5 Magnesium 1.5 L Nasal Screen MRSA (PCR) [facility] Medical History Alcohol abuse Alcohol abuse, 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) Alcoholic liver disease Anxiety Cataracts, bilateral Chicken pox Diverticulosis Dizziness after extension of neck Elevated liver enzymes Fractures GERD (gastroesophageal reflux disease) Herniated nucleus pulposus, L3-4 right Herniated nucleus pulposus, L5-S1, right Highly echogenic liver on ultrasound (07/2020) 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
[2024-12-12 18:15] LABS: Add Manual Diff / Slide Review NO; Hematocrit 22.8 % (41-53); Hemoglobin 7.9 g/dL (13.5-17.5); Lymphocytes Absolute Auto 1300 /uL (1100-4500); Mean Corpuscular HGB Conc 34.7 % (30-36); Mean Corpuscular Hemoglobin 35.7 PG (26-34); Mean Corpuscular Volume 103.0 fL (80-100); Platelet Count 75 X10^3/uL (150-400)
[2024-12-12 18:30] LABS: Blood Urea Nitrogen 10 mg/dL (9-20); Calcium 8.3 mg/dL (8.4-10.2); Carbon Dioxide 18 mmol/L (22-32); Chloride 103 mmol/L (98-107); Estimated Glomerular Filt Rate > 60 mL/min (>60); Glucose 159 mg/dL (70-99); HEMOLYSIS < 15 (0-50); Potassium 3.4 mmol/L (3.4-5.1); Sodium 133 mmol/L (137-145)
[2024-12-12] MEDS: PROPRANOLOL 10 MG TABLET PO (20:41)
[2024-12-12] MEDS: GABAPENTIN 300 MG CAPSULE PO (20:41)
[2024-12-13] VITALS (38 sets, daily range): BP systolic 104–136; BP diastolic 52–74; PULSE 70–94; RESP 14–18; TEMP 37.2–37.4; O2SAT 79–99
[2024-12-13 04:26] LABS: Hemoglobin 7.4 g/dL (13.5-17.5); Mean Corpuscular HGB Conc 35.4 % (30-36); Mean Corpuscular Hemoglobin 36.5 PG (26-34); Mean Corpuscular Volume 103.0 fL (80-100); Platelet Count 69 X10^3/uL (150-400)
[2024-12-13 04:28] LABS: Hematocrit 20.8 % (41-53)
[2024-12-13 04:29] LABS: INR 2.4 (0.9-1.3); Prothrombin Time 26.2 SECONDS (9.4-12.5)
[2024-12-13 04:31] LABS: PTT Partial Thromboplastin Tim 42 SECONDS (25.1-36.5)
[2024-12-13 04:32] LABS: Ammonia (NH3) 35 umol/L (9-30)
[2024-12-13 04:48] LABS: Alanine Aminotransferase 39 IU/L (<50); Albumin 3.5 g/dL (3.5-5.0); Albumin Globulin Ratio 0.9 (1.0-2.8); Alkaline Phosphatase 138 U/L (38-126); Blood Urea Nitrogen 13 mg/dL (9-20); Calcium 8.2 mg/dL (8.4-10.2); Carbon Dioxide 20 mmol/L (22-32); Chloride 106 mmol/L (98-107); Estimated Glomerular Filt Rate > 60 mL/min (>60); Globulin 3.8 g/dL (1.7-4.1); Glucose 149 mg/dL (70-99); HEMOLYSIS < 15 (0-50); Potassium 3.9 mmol/L (3.4-5.1); Sodium 133 mmol/L (137-145); Total Protein 7.3 g/dL (6.3-8.2)
[2024-12-13 05:19] LABS: Magnesium 2.0 mg/dL (1.6-2.3)
[2024-12-13] MEDS: MAG HYDROX/ALUM/SIMETH 30 ML UDC PO ×4 (08:23→20:38)
[2024-12-13] MEDS: PROPRANOLOL 10 MG TABLET PO ×2 (08:23→20:36)
[2024-12-13] MEDS: BISMUTH SUBSALICYLATE 525 MG/30 ML SUSP PO ×4 (08:23→20:39)
[2024-12-13] MEDS: GABAPENTIN 300 MG CAPSULE PO ×3 (08:23→20:35)
[2024-12-13] MEDS: MULTIVITAMIN 1 TABLET 1 TAB PO (08:23)
[2024-12-13] MEDS: SUCRALFATE 1 GM/10 ML ORAL SUSP PO ×4 (08:24→20:39)
[2024-12-13] MEDS: PANTOPRAZOLE 40 MG VIAL IV ×2 (08:24→20:39)
--- NOTE | 2024-12-13 09:21 | PM.PN.IH.1 ---
Subjective Subjective Date Patient Seen: 12/13/24 Time Patient Seen: 08:05 Interval history: Summary: 64-year-old man under the primary care of Ely Pitts PA-C presents reporting 3 days of black tarry stools. The patient was seen in the emergency department on 12/08/2024 with 2 days of abdominal discomfort, shortness of breath and chest pressure. Evaluation was notable for a CT scan noting ascending colonic wall thickening and potential colitis, without overt diverticulitis, and cirrhotic liver, in this patient with a history of chronic alcoholism and known cirrhosis. He was advised to take a diverticulosis diet, take ciprofloxacin and metronidazole. Blood cultures on that presentation showed 1/2 bottles positive for Gram-positive cocci and an elevated lactate of 5.2. He has a history of a Leelee-Huerta tear in 2020 in which he was hospitalized and underwent alcohol withdrawal. He is on meloxicam at home. He denies other nonsteroidal anti-inflammatory [id number] medications or aspirin. He starts drinking Mimosas in the morning and then transitions to cocktails from 4:00 p.m. until bedtime. He had a case of shingles in the right chest in September and was recently started on gabapentin by his host/hostess ground, who also advised him to stop pantoprazole which he was taking at that time. He is seen with his Chelly who assists in providing history along with the patient, who appears mildly confused, and mildly tremulous during the exam. S: He states he is overall feeling well. Adequate is down today. Denies further bleeding. He has not had a bowel movement. O: NAD, alert and oriented. Fluent speech. Shakey. Lungs are clear, normal rate and effort. Heart is regular, no murmur gallop or rub. Abdomen is soft, non distended. Extremities are free of edema. IMAGING: Chest/abdomen/pelvis CT 12/08/2024:: Radiologist's impression: Evaluation of the large bowel is limited given the overall under distention of the bowel. Given the limitations, equivocal wall thickening of the sigmoid colon and ascending colon. Differential includes early or mild diverticulitis without complications or portal colopathy. Cirrhosis without mass. Hepatomegaly with fatty infiltration. Normal gallbladder. Appendix is unremarkable. Chest x-ray 12/07/2024:: Radiologist's impression: No acute cardiopulmonary abnormality is seen. Abdomen/pelvis CT angiogram 12/10/2024: : Radiologist's impression: No site of active bleeding can be seen. 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 Additional findings: Accessory splenule Focal L5-S1 degenerative change Diverticulosis, without active diverticulitis Mild fat containing left inguinal hernia A/P: 1. Gastrointestinal bleed with melena x 3 days. EGD 12/11 with severe esophagitis varices, Leelee-Huerta tear, gastritis and 1 cm duodenal ulcer. Rule out H.pylori. Pathology pending. No further bleeding reported. 2. Acute blood loss anemia due to 1. Worsened today. Transfusing additional unit of packed red blood cells. 3. Cirrhosis with varices. Treat with propranolol prophylaxis. 4. Acute alcohol withdrawal syndrome, stable and doing well at this point. 5. Chronic alcohol use disorder. 6. Hypertension, chronic and stable. Monitor off losartan at this point. 7. Post herpetic neuralgia. Chronic and stable on gabapentin. Plan: -transfuse 1 unit PRBC -advance diet per surgery -PPI b.i.d. -H.pylori therapy with Pepto-Bismol, metronidazole, TTC, and PPI. -variceal prophylaxis with beta-blockers -if clinically worsening for require transfer to tertiary level facility -possible dicharge home tomorrow if stable and no further bleeding DVT prophylaxis: Sequential compression devices Code status: Full code. This is reviewed with the patient on admission with his Chelly, who is his surrogate decision maker Exam Vital Signs (past 8 hours): - 12/13/24 05:00 12/13/24 08:00 12/13/24 08:00 Temperature 99.1 F Pulse Rate 79 92 H Respiratory Rate 16 16 Blood Pressure 127/67 132/63 Pulse Oximetry 95 98 Oxygen Delivery Method Room Air Oxygen Flow Rate 0 0 12/13/24 08:30 12/13/24 08:55 Temperature 99.3 F 99.0 F Pulse Rate 94 H 72 Respiratory Rate 18 17 Blood Pressure 136/67 115/64 Pulse Oximetry Oxygen Delivery Method Oxygen Flow Rate Oxygen Delivery Method Room Air Oxygen Flow Rate 0 Objective Labs 12/13/24 04:04 12/13/24 04:04 Labs: Laboratory Results - last 24 hr 12/10/24 12/12/24 12/13/24 14:00 18:08 04:04 WBC 9.4 9.1 RBC 2.21 L 2.02 L Hgb 7.9 L 7.4 L Hct 22.8 L 20.8 L* MCV 103.0 H 103.0 H MCH 35.7 H 36.5 H MCHC 34.7 35.4 RDW 15.6 H 15.6 H Plt Count 75 L 69 L Neut % (Auto) 75.1 H Lymph % (Auto) 13.6 L Sandoval % (Auto) 8.5 Eos % (Auto) 2.3 Baso % (Auto) 0.5 Neut # (Auto) 7000 Lymph # (Auto) 1300 Sandoval # (Auto) 800 Eos # (Auto) 200 Baso # (Auto) 100 PT 26.2 H D INR 2.4 H APTT 42 H Sodium 133 L 133 L Potassium 3.4 3.9 Chloride 103 106 Carbon Dioxide 18 L 20 L BUN 10 13 Creatinine 0.58 L 0.59 L Estimated GFR > 60 > 60 BUN/Creatinine Ratio 17.2 22.0 Glucose 159 H 149 H Calcium 8.3 L 8.2 L Magnesium 2.0 Total Bilirubin 5.6 H AST 136 H ALT 39 Alkaline Phosphatase 138 H Ammonia 35 H Total Protein 7.3 Albumin 3.5 Globulin 3.8 Albumin/Globulin Ratio 0.9 L Blood Type A Positive Antibody Screen Negative Crossmatch See Detail [facility] Medical History Alcohol abuse Alcohol abuse, 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) Alcoholic liver disease Anxiety Cataracts, bilateral Chicken pox Diverticulosis Dizziness after extension of neck Elevated liver enzymes Fractures GERD (gastroesophageal reflux disease) Herniated nucleus pulposus, L3-4 right Herniated nucleus pulposus, L5-S1, right Highly echogenic liver on ultrasound (07/2020) 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
[2024-12-13] MEDS: THIAMINE 100 MG in SODIUM CHLORIDE 0.9% 100 ML 404 MG IV (09:32)
--- NOTE | 2024-12-13 10:07 | PM.PN.IH.1 ---
Subjective Subjective Date Patient Seen: 12/13/24 Time Patient Seen: 09:45 Interval history: Patient is resting comfortably in bed postop day 2. EGD with severe esophagitis varices hiatal hernia Leelee-Huerta tear gastritis with a 1 cm duodenal ulcer. Patient has a acute blood loss anemia with cirrhosis with chronic changes. Patient states he is having no red or black stools. Tolerating liquids well. Patient's morning laboratory shows WBC of 9.1 hemoglobin is 7.4 hematocrit is 20.8 is receiving 1 unit of packed RBCs at this time. Platelets are 69,000. PT is 26.2 INR 2.4 PTT is 42. Sodium is 133 potassium 3.9 chloride 106 bicarb is 20 BUN 13 creatinine 0.59 random blood sugar is 149. Total bilirubin is 5.6 AST is 136 ALT is 39 alkaline phosphatase 138 serum ammonia is 35. Vitals: Temperature is 99.0? pulse 72 respirations 17 BP is 115/64 SaO2 is 98% on room air. Heart regular rate and rhythm without murmurs. Lungs are clear to auscultation diminished in the bases poor inspiratory and expiratory effort. Abdomen is soft nondistended hepatosplenomegaly is noted no masses or peritoneal signs are elicited good active bowel sounds. Patient is noted to have scleral icterus slight jaundice to his skin. Impression: Postop day 2. EGD for acute blood loss anemia with severe esophagitis esophageal varices hiatal hernia Leelee-Huerta tear gastritis 1 cm duodenal ulcer Acute blood loss anemia hemoglobin of 7.4 hematocrit is 20.8 Thrombocytopenia Gap coags PT of 26.2 INR 2.4 PTT is 42 Elevated liver enzymes and total bilirubin of 5.6 with serum ammonia of 35 History of alcohol abuse Plan: Discussed with patient the findings no need for returned to endoscopy at this time discuss cirrhosis and its chronic changes and need for lifestyle changes. Continue on maximal H2 blockers antacids and Carafate. Patient will be transfused as needed. Discussed with patient follow-up with a kiss setter hand for management of the portal hypertension and varices also possible hepatic specialist or optimizing a liver damage. All questions were answered to patient's satisfaction. Exam Vital Signs (past 8 hours): - 12/13/24 05:00 12/13/24 08:00 12/13/24 08:00 Temperature 99.1 F Pulse Rate 79 92 H Respiratory Rate 16 16 Blood Pressure 127/67 132/63 Pulse Oximetry 95 98 Oxygen Delivery Method Room Air Oxygen Flow Rate 0 0 12/13/24 08:30 12/13/24 08:55 12/13/24 09:10 Temperature 99.3 F 99.0 F 99.3 F Pulse Rate 94 H 72 73 Respiratory Rate 18 17 18 Blood Pressure 136/67 115/64 112/62 Pulse Oximetry Oxygen Delivery Method Oxygen Flow Rate 12/13/24 09:25 Temperature 99.3 F Pulse Rate 70 Respiratory Rate 15 Blood Pressure 111/61 Pulse Oximetry Oxygen Delivery Method Oxygen Flow Rate Oxygen Delivery Method Room Air Oxygen Flow Rate 0 Objective Labs 12/13/24 04:04 12/13/24 04:04 Labs: Laboratory Results - last 24 hr 12/10/24 12/12/24 12/13/24 14:00 18:08 04:04 WBC 9.4 9.1 RBC 2.21 L 2.02 L Hgb 7.9 L 7.4 L Hct 22.8 L 20.8 L* MCV 103.0 H 103.0 H MCH 35.7 H 36.5 H MCHC 34.7 35.4 RDW 15.6 H 15.6 H Plt Count 75 L 69 L Neut % (Auto) 75.1 H Lymph % (Auto) 13.[address] [place] % (Auto) 8.5 Eos % (Auto) 2.3 Baso % (Auto) 0.5 Neut # (Auto) 7000 Lymph # (Auto) 1300 [place] # (Auto) 800 Eos # (Auto) 200 Baso # (Auto) 100 PT 26.2 H D INR 2.4 H APTT 42 H Sodium 133 L 133 L Potassium 3.4 3.9 Chloride 103 106 Carbon Dioxide 18 L 20 L BUN 10 13 Creatinine 0.58 L 0.59 L Estimated GFR > 60 > 60 BUN/Creatinine Ratio 17.2 22.0 Glucose 159 H 149 H Calcium 8.3 L 8.2 L Magnesium 2.0 Total Bilirubin 5.6 H AST 136 H ALT 39 Alkaline Phosphatase 138 H Ammonia 35 H Total Protein 7.3 Albumin 3.5 Globulin 3.8 Albumin/Globulin Ratio 0.9 L Blood Type A Positive Antibody Screen Negative Crossmatch See Detail [facility] Medical History Alcohol abuse Alcohol abuse, 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) Alcoholic liver disease Anxiety Cataracts, bilateral Chicken pox Diverticulosis Dizziness after extension of neck Elevated liver enzymes Fractures GERD (gastroesophageal reflux disease) Herniated nucleus pulposus, L3-4 right Herniated nucleus pulposus, L5-S1, right Highly echogenic liver on ultrasound (07/2020) 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) History of varicocele Hypertension Low back pain Measles Mixed hyperlipidemia Nocturia Plantar fasciitis, bilateral Pneumothorax (~2013) Rectal bleeding (02/18/19) Sebaceous cyst Shoulder pain Skin lesions Thrombophlebitis Varicocele (2001) Vision disorder Family History Father Cancer Social History household members: spouse Smoking Status: Never smoker second hand exposure: Yes alcohol intake: current substance use type: does not use Assessment & Plan Time-Based Coding :: [TOTAL MINUTES] spent with patient and on the chart (including review of chart, obtaining history, exam, reviewing outside data, placing orders, documenting exam and treatment plan, and counseling patient) on [DATE]. PROFEE Blender/Braze Applicator Document charge(s): Yes
[2024-12-13 13:37] LABS: Hematocrit 24.1 % (41-53); Hemoglobin 8.5 g/dL (13.5-17.5)
[2024-12-14 03:31] VITALS: BP 122/58; PULSE 78; O2SAT 97
[2024-12-14 04:00] VITALS: BP 122/58; PULSE 77; RESP 18; TEMP 37.6; O2SAT 97
[2024-12-14 05:30] LABS: Hematocrit 21.9 % (41-53); Hemoglobin 7.7 g/dL (13.5-17.5); Mean Corpuscular HGB Conc 35.2 % (30-36); Mean Corpuscular Hemoglobin 35.3 PG (26-34); Mean Corpuscular Volume 100.4 fL (80-100); Platelet Count 79 X10^3/uL (150-400)
[2024-12-14 05:46] LABS: Alanine Aminotransferase 35 IU/L (<50); Albumin 3.5 g/dL (3.5-5.0); Albumin Globulin Ratio 0.9 (1.0-2.8); Alkaline Phosphatase 147 U/L (38-126); Blood Urea Nitrogen 14 mg/dL (9-20); Calcium 8.3 mg/dL (8.4-10.2); Carbon Dioxide 18 mmol/L (22-32); Chloride 106 mmol/L (98-107); Estimated Glomerular Filt Rate > 60 mL/min (>60); Globulin 3.9 g/dL (1.7-4.1); Glucose 143 mg/dL (70-99); HEMOLYSIS < 15 (0-50); Potassium 4.1 mmol/L (3.4-5.1); Sodium 134 mmol/L (137-145); Total Protein 7.4 g/dL (6.3-8.2)
[2024-12-14] MEDS: MULTIVITAMIN 1 TABLET 1 TAB PO (09:03)
[2024-12-14] MEDS: PROPRANOLOL 10 MG TABLET PO (09:04)
[2024-12-14] MEDS: MAG HYDROX/ALUM/SIMETH 30 ML UDC PO ×2 (09:04→12:22)
[2024-12-14] MEDS: GABAPENTIN 300 MG CAPSULE PO (09:04)
[2024-12-14] MEDS: SUCRALFATE 1 GM/10 ML ORAL SUSP PO ×2 (09:04→12:22)
[2024-12-14] MEDS: THIAMINE 100 MG TABLET PO (09:04)
[2024-12-14] MEDS: BISMUTH SUBSALICYLATE 525 MG/30 ML SUSP PO ×2 (09:05→12:23)
[2024-12-14] MEDS: PANTOPRAZOLE 40 MG VIAL IV (09:05)
--- NOTE | 2024-12-14 10:52 | PC.NURSE ---
Addendum entered by Domitila Navas RN 12/14/24 13:09: Pt education provided on medications, worsening symptoms, diet, and follow up with PCP, stroke s/s. Pt verbalized understanding. Spouse present during education. IV's discontinued. Pt ambulated to private vehicle with spouse and PCT at approximately 1300. Original Note: Day shift: Pt A&Ox4, up walking in halls, steady gait. Uses call light appropriately. Able to take PO meds crushed in water without issue. Agreeable to discharge. States will be unable to pick him up until after 1600 due to work requirements but will attempt to find other discharge assistance for transportation home. Care ongoing.
--- NOTE | 2024-12-14 12:38 | CM.DPC ---
DCP Discharge Home Per MD, pt is medically stable to discharge home today and spouse working at the [facility] for [employer] today so likely transport will be later in the day. MD discussed ETOH treatment and cessation and pt agreeable to discuss options with his PCP later this week after discharge but not currently interested in resources like AA or outpt tx yet at this time but potential for MAT or willing to consider more after talking to PCP. Plan: Patient to d/c home today via spouse POV and outpt f/u with PCP regarding ETOH cessation. BUNNY Howell
--- NOTE | 2024-12-14 15:20 | P.DS_ITS ---
History of Present Illness History of Present Illness Date Patient Seen: 12/14/24 Time Patient Seen: 09:18 Chief complaint: Sepsis, sent from PCP Narrative: 64-year-old man under the primary care of Ely Pitts PA-C presents reporting 3 days of black tarry stools. The patient was seen in the emergency department on 12/08/2024 with 2 days of abdominal discomfort, shortness of breath and chest pressure. Evaluation was notable for a CT scan noting ascending colonic wall thickening and potential colitis, without overt diverticulitis, and cirrhotic liver, in this patient with a history of chronic alcoholism and known cirrhosis. He was advised to take a diverticulosis diet, take ciprofloxacin and metronidazole. Blood cultures on that presentation showed 1/2 bottles positive for Gram-positive cocci and an elevated lactate of 5.2. He has a history of a Leelee-Huerta tear in 2020 in which he was hospitalized and underwent alcohol withdrawal. He is on meloxicam at home. He denies other nonsteroidal anti-inflammatory [id number] medications or aspirin. He starts drinking Mimosas in the morning and then transitions to cocktails from 4:00 p.m. until bedtime. He had a case of shingles in the right chest in September and was recently started on gabapentin by his space controller, who also advised him to stop pantoprazole which he was taking at that time. He is seen with his Chelly who assists in providing history along with the patient, who appears mildly confused, and mildly tremulous during the exam. Discharge Providers Provider Date of admission: 12/10/24 17:10 Discharge Date: 12/14/24 Primary care physician: Latosha Pitts PA-C Consults: 12/10/24 13:35 Consult to [facility] [place] - Railroad Mechanic Stat Comment: Railroad Mechanic Consult needed for:: Substance abuse 12/10/24 16:55 Consult to Physician Stat Comment: Consulting Provider: Prashant Ryan Reason for consultation: GI bleed Has provider been notified: Yes Discharge provider: Jarvis Steel MD Summary Hospital Course Discharge Diagnosis: 1. Gastrointestinal bleed with melena x 3 days due to duodenal ulcer, Leelee Huerta tear. 2. Acute blood loss anemia due to 1. 3. Cirrhosis with varices. 4. Large esophageal varices. 5. Acute alcohol withdrawal syndrome, resolved. 6. Chronic alcohol use disorder. 7. Hypertension, chronic and stable. 8. Post herpetic neuralgia. Hospital Course: Patient was admitted and underwent upper endoscopy 12/11/2024: * Main etiology of GI bleed: 1cm duodenal ulcer, just inside pylorus, large adherent clot, stigmata of recent bleed, clot left in place, not actively bleeding, high risk for re-bleed * Severe diffuse gastritis, clinical H pylori, antral biopsies taken * 2cm hiatal hernia * Small Leelee-Huerta tear with adherent clot, stigmata of recent bleeding * Large esophageal varices, non-bleeding * Severe LA Grade D esophagitis, not bleeding, clinical Nance's, not biopsied due to varices His admission hematocrit was 26.1%, down from 30.4% on 12/07/2024 and previously 42.3% in 12/2023. He had been experiencing melenic stools. He was transfused 1 unit of packed red blood cells on 12/11 and a 2nd unit on 12/13 with a discharge hematocrit of 21.9%. He was treated with a combination of triple therapy for possible H pylori, meloxicam was discontinued, and intravenous proton pump inhibitors were administered. There was no significant bleeding during hospitalization and he was interested in discharge home with outpatient follow- up. Gastroenterology consultation for esophageal banding was recommended. He was started on propranolol during the hospitalization for variceal prophylaxis. Warning signs that would prompt immediate follow-up reviewed, including recurrent bleeding symptoms. Additionally, engaging in alcohol cessation and rehabilitation services as recommended. The patient acknowledged understanding, agreement and appreciation of this plan of care, and agreed to call back with any questions or concerns. Status at Discharge Cognitive/behavioral status at discharge: oriented Functional status at discharge: independent ambulation Overall status at discharge: patient is progressing back to baseline Time Spent with Patient Time spent: Greater than 30 minutes Exam Vital Signs (past 8 hours): Oxygen Delivery Method Room Air Oxygen Flow Rate 0 Narrative Exam Narrative: NAD, alert and oriented. Fluent speech. Shakey. Lungs are clear, normal rate and effort. Heart is regular, no murmur gallop or rub. Abdomen is soft, non distended. Extremities are free of edema. Objective Labs 12/14/24 04:05 12/14/24 04:05 Labs: Laboratory Results - last 24 hr 12/14/24 04:05 WBC 9.3 RBC 2.18 L Hgb 7.7 L Hct 21.9 L MCV 100.4 H MCH 35.3 H MCHC 35.2 RDW 19.3 H Plt Count 79 L Sodium 134 L Potassium 4.1 Chloride 106 Carbon Dioxide 18 L BUN 14 Creatinine 0.61 L Estimated GFR > 60 BUN/Creatinine Ratio 23.0 H Glucose 143 H Calcium 8.3 L Total Bilirubin 5.1 H AST 108 H ALT 35 Alkaline Phosphatase 147 H Total Protein 7.4 Albumin 3.5 Globulin 3.9 Albumin/Globulin Ratio 0.9 L [facility] Medical History Alcohol abuse Alcohol abuse, 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) Alcoholic liver disease Anxiety Cataracts, bilateral Chicken pox Diverticulosis Dizziness after extension of neck Elevated liver enzymes Fractures GERD (gastroesophageal reflux disease) Herniated nucleus pulposus, L3-4 right Herniated nucleus pulposus, L5-S1, right Highly echogenic liver on ultrasound (07/2020) 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 Taylor this week Discharge orders & Medications Prescriptions: New metronidazole 500 mg Tablet 500 mg PO QID Qty: 56 0RF propranolol 10 mg Tablet 10 mg PO BID Qty: 60 0RF bismuth subsalicylate [Pepto-Bismol] 262 mg/15 mL Suspension 262 mg PO QID 14 Days Qty: 840 0RF tetracycline 250 mg Capsule 500 mg PO 0630,1030,1530,2000 Qty: 56 0RF sucralfate 1 gram tablet 1 g PO QACHS Qty: 56 0RF pantoprazole 40 mg tablet,delayed release (DR/EC) 40 mg PO BID Qty: 60 0RF Continued losartan 50 mg tablet 50 mg PO DAILY Qty: 90 1RF gabapentin 300 mg capsule 300 mg PO 3XD Discontinued meloxicam 15 mg tablet 15 mg PO DAILY PRN Follow up/Referrals: Latosha Pitts PA-C [Primary Care Provider, Medical] Visit Report/Discharge Packet Instructions: DI for Diverticulitis Stand Alone Forms: Patient Portal/API, Stroke Signs & Symptoms Discharge Data Primary Care Provider: Latosha Pitts Quality MIPS - Admit I confirm the patient?s Advance Care Plan is present, Code status is documented, Surrogate decision maker is in patient?s record [If Yes, STOP here]: Yes MIPS - Meds 'Current medications' to include all prescriptions, ocnq-frp-ikypnnm products, herbals, cannabis/cannabidiol products, and vitamin/mineral/dietary (nutritional) supplements. I have utilized all available resources to obtain, update, or review the patient?s current medications. [If Yes, STOP here]: Yes MIPS - DC The patient has a history of heart transplant or Left Ventricular Assist Device (LVAD). If yes, STOP here.: No The patient has current or prior documentation of left ventricular ejection fraction (LVEF) less than or equal to 40%, or moderate or severely depressed left ventricular systolic function.: No A. The patient was prescribed or already taking an Angiotensin-Converting Enzyme (ABHINAV) Inhibitor, or Angiotensin Receptor Jason (ARB).: Yes B. The patient was prescribed or already taking a beta-jason. [If Yes to Both A & B, STOP here]: Yes Patient not prescribed/taking ABHINAV or ARB, no reason given.: No Patient not prescribed/taking beta-jason, no reason given.: No PROFEE Charge Codes Discharge inpatient/observation: [id number]
== END 2024-12-14 13:00 | disposition home or self-care (01) | DRG 377 ==
LOC: ED 17:07 → AC 17:11 → ICU 20:45
PROVIDERS: Hospitalist; Internal Medicine; Surgery; Admitting Provider Internal Medicine; Emergency Provider Emergency Medicine; PCP Physician Assistant; Visit Provider Internal Medicine
PROC: 0DJ08ZZ Inspection of Upper Intestinal Tract, Via Natural or Artificial Opening Endoscopic (ICD-10-PCS; principal; 2024-12-11 16:00)
DX: K26.4 Chronic or unspecified duodenal ulcer with hemorrhage (principal); K20.91 Esophagitis, unspecified with bleeding; D62 Acute posthemorrhagic anemia; F10.939 Alcohol use, unspecified with withdrawal, unspecified; B02.29 Other postherpetic nervous system involvement; K76.6 Portal hypertension; K57.32 Diverticulitis of large intestine without perforation or abscess without bleeding; I85.01 Esophageal varices with bleeding; K22.6 Gastro-esophageal laceration-hemorrhage syndrome; K29.71 Gastritis, unspecified, with bleeding; I10 Essential (primary) hypertension; K22.70 Barrett's esophagus without dysplasia; K44.9 Diaphragmatic hernia without obstruction or gangrene; K70.30 Alcoholic cirrhosis of liver without ascites; D69.6 Thrombocytopenia, unspecified; Y90.8 Blood alcohol level of 240 mg/100 ml or more; Z87.19 Personal history of other diseases of the digestive system; K52.9 Noninfective gastroenteritis and colitis, unspecified
CPT/HCPCS: 36415; 36430; 43239; 71045; 71260; 74174; 74177; 80048; 80053; 80320; 81001; 82140; 83605; 83735; 83880; 84145; 84484; 85014; 85018; 85025; 85027; 85610; 85730; 86850; 86900; 86901; 87040; 87077; 87797; 93005; 93010; 96361; 96365; 96374; 96375; 99222; 99232; 99284; 99285; P9016; A9270; J0744; J2060; J2405; J2470; J2560; J2704; J3475; J7030; J7050; J7120; Q9967

== ENCOUNTER 2024-12-24 14:45 | Emergency (ER) | payer MEDICARE, SELFPAY ==
[2024-12-10 20:40] VITALS: BMI 25.2
[2024-12-24] VITALS (14 sets, daily range): BP systolic 101–137; BP diastolic 56–68; PULSE 57–85; RESP 16; TEMP 36.8; O2SAT 81–100; BMI 24.5
--- NOTE | 2024-12-24 16:36 | ED.RECABL ---
HPI - Recheck/Abnormal Lab/Rx General Chief Complaint: Recheck/Abnormal Lab/Rx Stated Complaint: sent by PCP for low bp 66/34 Time Seen by Provider: 12/24/24 16:18 Source: patient Mode of arrival: Ambulatory History of Present Illness HPI narrative: Patient is sent here from his family doctor's office after calling them about blood pressure he took this morning 66/34 at home. Patient recently was admitted here for diverticulitis/GI bleed. He has not drank alcohol for over 2 weeks. He states his abdominal pain has improved. Denies any black or bloody stools since coming home. Patient's blood pressure on triage reviewed. Patient underwent upper endoscopy. 1 cm duodenal ulcer. Leelee-Huerta tear with clot. Nonbleeding esophageal varices. He was given transfusion/PRBC, 2 units total. Related Data Home Medications ?Medication ?Instructions ?Recorded ?Confirmed gabapentin 300 mg capsule 300 mg PO 3XD 12/07/24 12/16/24 Previous Rx's ?Medication ?Instructions ?Recorded losartan 50 mg tablet 50 mg PO DAILY #90 tabs 06/24/24 bismuth subsalicylate 262 mg/15 mL 262 mg (15 mL) PO QID 14 days #840 12/14/24 oral suspension (Pepto-Bismol) mL metronidazole 500 mg tablet 500 mg PO QID #56 tabs 12/14/24 pantoprazole 40 mg tablet,delayed 40 mg PO BID #60 tabs 12/14/24 release propranolol 10 mg tablet 10 mg PO BID #60 tabs 12/14/24 sucralfate 1 gram tablet 1 g PO QACHS #56 tabs 12/14/24 tetracycline 250 mg capsule 500 mg (2 x 250 mg) PO 12/14/24 0630,1030,1530,2000 #56 caps Allergies Allergy/AdvReac Type Severity Reaction Status Date / Time celecoxib (From Celebrex) Allergy Severe SPASM Verified 12/16/24 10:49 amoxicillin Allergy Intermediate Swelling Verified 12/16/24 10:49 of Lip/Tongue/Throat hydrochlorothiazide AdvReac Intermediate hyponatremi Verified 12/16/24 10:49 a lisinopril AdvReac Mild angiodema Verified 12/16/24 10:49 (lips) Review of Systems Review of Systems Narrative: GENERAL: Negative chills, fatigue, malaise, fever, sweats. HEENT: Negative sinus pain, ear pain, sore throat RESPIRATORY: Negative dyspnea, cough CARDIOVASCULAR: Negative chest pain, palpitations GASTROINTESTINAL: Negative vomiting, nausea, abdominal pain : Negative dysuria, frequency, hematuria MUSCULOSKELETAL: Negative muscle or bony pain SKIN: Negative rash, skin lesions NEUROLOGIC: Negative weakness, numbness ROS Unobtainable: All systems reviewed & are unremarkable except as noted in HPI and below Patient History Medical History History of duodenal ulcer Barretts esophagus Diverticulosis Anxiety Skin lesions GERD (gastroesophageal reflux disease) History of varicocele Sebaceous cyst Dizziness after extension of neck Plantar fasciitis, bilateral Herniated nucleus pulposus, L5-S1, right Herniated nucleus pulposus, L3-4 right Alcoholic liver disease Alcohol abuse, 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) Nocturia Thrombophlebitis 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) Highly echogenic liver on ultrasound (07/2020) Low back pain Alcohol abuse Elevated liver enzymes Mixed hyperlipidemia Rectal bleeding (02/18/19) Vision disorder Pneumothorax (~2013) Shoulder pain Fractures Measles Chicken pox Cataracts, bilateral Varicocele (2001) Hypertension Family History Father Cancer Social History household members: spouse Smoking Status: Never smoker second hand exposure: Yes alcohol intake: current substance use type: does not use Smoking Status: Never smoker alcohol intake frequency: 3 or more drinks per day Alcohol type: beer, wine and hard liquor Exam Narrative Exam Narrative: GENERAL: in no distress, not toxic not dyspneic HEAD: Normocephalic. EYES: Pupils equal round pink conjunctiva ENT: Mucous membranes moist. NECK: Trachea midline. CARDIOVASCULAR: Regular rate and rhythm RESPIRATORY: Clear to auscultation. Breath sounds equal bilaterally. No wheezes, rales, or rhonchi. GASTROINTESTINAL: Abdomen soft, non-tender BACK: No flank tenderness. EXTREMITIES: No gross deformities. NEURO: AOx4. Clear speech SKIN: Warm and dry PSYCH: Not anxious, is cooperative Initial Vital Signs Initial Vital Signs: Vital Signs Temperature 98.3 F 12/24/24 14:52 Pulse Rate 61 12/24/24 14:52 Respiratory Rate 16 10/29/25 14:52 Blood Pressure 117/57 L 12/24/24 14:52 Pulse Oximetry 100 12/24/24 14:52 Oxygen Delivery Method Room Air 12/24/24 14:52 Course Orders Ordered: Discontinued Medications Sodium Chloride (Normal Saline 0.9%) 1,000 mls @ 1,000 mls/hr IV BOLUS ONE Stop: 12/24/24 18:23 Last Infusion: 12/24/24 19:15 Dose: Infused Documented By: Admin: 12/24/24 18:02 Dose: 1,000 mls/hr Documented By: YONATHAN Vital Signs Vital signs: Vital Signs - 8 hr 12/24/24 14:52 12/24/24 16:52 Temperature 98.3 F Pulse Rate 61 Pulse Rate [Orthostatic Lying] 57 L Pulse Rate [Orthostatic Sitting] 62 Pulse Rate [Orthostatic Standing] 64 Respiratory Rate 16 Blood Pressure 117/57 L Blood Pressure [Orthostatic Lying] 124/57 L Blood Pressure [Orthostatic Sitting] 112/58 L Blood Pressure [Orthostatic Standing] 101/56 L Pulse Oximetry 100 Oxygen Delivery Method Room Air MDM - Recheck/Abnormal Lab/Rx Lab Data 12/24/24 17:07 12/24/24 17:07 Labs: Lab Results 12/24/24 Range/Units 17:07 WBC 10.4 (4.5-11.0) X10^3/uL RBC 2.29 L (4.5-5.9) X10^6/uL Hgb 8.1 L (13.5-17.5) g/dL Hct 23.3 L (41-53) % MCV 101.5 H (80-100) fL MCH 35.5 H (26-34) PG MCHC 35.0 (30-36) % RDW 17.5 H (11.6-14.8) % Plt Count 216 (150-400) X10^3/uL Neut % (Auto) 69.0 (50-75) % Lymph % (Auto) 17.6 L (25-40) % [place] % (Auto) 10.3 (3-14) % Eos % (Auto) 2.1 (2-4) % Baso % (Auto) 1.0 (0-2) % Neut # (Auto) 7200 H (3992-5400) /uL Lymph # (Auto) 1800 (4177-6242) /uL [place] # (Auto) 1100 H (0-900) /uL Eos # (Auto) 200 (0-450) /uL Baso # (Auto) 100 (0-100) /uL Sodium 135 L (137-145) mmol/L Potassium 4.6 (3.4-5.1) mmol/L Chloride 107 (98-107) mmol/L Carbon Dioxide 21 L (22-32) mmol/L BUN 15 (9-20) mg/dL Creatinine 0.79 (0.66-1.25) mg/dL Estimated GFR > 60 (>60) mL/min BUN/Creatinine Ratio 19.0 (6-22) Glucose 121 H (70-99) mg/dL Calcium 9.5 (8.4-10.2) mg/dL Total Bilirubin 3.0 H (0.2-1.3) mg/dL AST 122 H (17-59) IU/L ALT 46 (<50) IU/L Alkaline Phosphatase 184 H (38-126) U/L Total Protein 8.9 H (6.3-8.2) g/dL Albumin 3.9 (3.5-5.0) g/dL Globulin 5.0 H (1.7-4.1) g/dL Albumin/Globulin Ratio 0.8 L (1.0-2.8) MDM Narrative Medical decision making narrative: Patient is sent here from his family doctor's office after calling them about blood pressure he took this morning 66/34 at home. Patient recently was admitted here for diverticulitis/GI bleed. He has not drank alcohol for over 2 weeks. He states his abdominal pain has improved. Denies any black or bloody stools since coming home. Patient's blood pressure on triage reviewed. Patient underwent upper endoscopy. 1 cm duodenal ulcer. Leelee-Huerta tear with clot. Nonbleeding esophageal varices. He was given transfusion/PRBC, 2 units total. MDM After history and exam, CBC CMP orthostatics, patient denies any chest pain or abdominal pain. No EKG indicated at this time. No troponin. Differential considered: Includes but not limited to upper GI bleed lower GI bleed dehydration, Medical records reviewed: December 14, 2024 discharge summary from this hospital Lab Test results independently reviewed as above. Pertinent findings: WBC 10.4 hemoglobin 8.1, patient at baseline. Sodium 135 potassium 4.6 BUN 15 creatinine 0.79 glucose 121 total bilirubin 3.0 which has improved from 10 days ago. Albumin 3.9 Consultations: None indicated at this time Re-evaluations: 5:40 p.m.. Updated patient results. He states he has been selective and careful about eating due to his diverticulitis. Blood pressure orthostatics reviewed and there was a difference on blood pressure but he was not dizzy so he does agree with IV fluids. Discussion: Appropriate for discharge home. Exam is reassuring. Hemoglobin crying transfusion. Patient has been careful about his hydration and eating and may be contributory towards his blood pressure being slightly low. Denies any pain. IV fluid provided. Return precautions reviewed. He desires discharge home Diagnosis: Dehydration Discharge Plan Departure Patient Disposition: Home Clinical Impression: Acute dehydration Instructions: DI for Dehydration -- Adult Activity Restrictions/Additional Instructions: You may be slightly dehydrated. Your blood work is reassuring. Your vital signs have been reassuring here. IV fluids have been provided for you. Please see family doctor in a week for re-evaluation. Continue home medications. Return if worse if any questions or concerns. Prescriptions: No Action losartan 50 mg tablet 50 mg PO DAILY Qty: 90 1RF gabapentin 300 mg capsule 300 mg PO 3XD metronidazole 500 mg Tablet 500 mg PO QID Qty: 56 0RF propranolol 10 mg Tablet 10 mg PO BID Qty: 60 0RF bismuth subsalicylate [Pepto-Bismol] 262 mg/15 mL Suspension 262 mg PO QID 14 Days Qty: 840 0RF tetracycline 250 mg Capsule 500 mg PO 0630,1030,1530,2000 Qty: 56 0RF sucralfate 1 gram tablet 1 g PO QACHS Qty: 56 0RF pantoprazole 40 mg tablet,delayed release (DR/EC) 40 mg PO BID Qty: 60 0RF Referrals: Jaen Taylor DO [Primary Care Provider, Family Practice] Stand Alone Forms: Patient Portal/API
[2024-12-24 17:17] LABS: Add Manual Diff / Slide Review NO; Hematocrit 23.3 % (41-53); Hemoglobin 8.1 g/dL (13.5-17.5); Lymphocytes Absolute Auto 1800 /uL (1100-4500); Mean Corpuscular HGB Conc 35.0 % (30-36); Mean Corpuscular Hemoglobin 35.5 PG (26-34); Mean Corpuscular Volume 101.5 fL (80-100); Platelet Count 216 X10^3/uL (150-400)
[2024-12-24 17:29] LABS: Alanine Aminotransferase 46 IU/L (<50); Albumin 3.9 g/dL (3.5-5.0); Albumin Globulin Ratio 0.8 (1.0-2.8); Alkaline Phosphatase 184 U/L (38-126); Blood Urea Nitrogen 15 mg/dL (9-20); Calcium 9.5 mg/dL (8.4-10.2); Carbon Dioxide 21 mmol/L (22-32); Chloride 107 mmol/L (98-107); Estimated Glomerular Filt Rate > 60 mL/min (>60); Globulin 5.0 g/dL (1.7-4.1); Glucose 121 mg/dL (70-99); Potassium 4.6 mmol/L (3.4-5.1); Sodium 135 mmol/L (137-145); Total Protein 8.9 g/dL (6.3-8.2)
[2024-12-24 17:32] LABS: HEMOLYSIS 74 (0-50)
[2024-12-24] MEDS: SODIUM CHLORIDE 0.9% 1,000 ML 1000 ML IV (18:02)
== END 2024-12-24 19:18 | disposition home or self-care (01) ==
PROVIDERS: Emergency Provider Emergency Medicine; PCP Family Medicine
DX: E86.0 Dehydration (principal); R03.1 Nonspecific low blood-pressure reading; Z87.19 Personal history of other diseases of the digestive system
CPT/HCPCS: 80053; 85025; 96360; 99283; 99284; J7030

== ENCOUNTER → 2025-01-13 13:38 | Outpatient (CLI) | payer MEDICARE, SELFPAY ==
[2024-12-10 20:40] VITALS: BMI 25.2
[2025-01-13 14:02] LABS: Add Manual Diff / Slide Review NO; Hematocrit 27.2 % (41-53); Hemoglobin 9.4 g/dL (13.5-17.5); Lymphocytes Absolute Auto 2200 /uL (1100-4500); Mean Corpuscular HGB Conc 34.6 % (30-36); Mean Corpuscular Hemoglobin 34.8 PG (26-34); Mean Corpuscular Volume 100.4 fL (80-100); Platelet Count 141 X10^3/uL (150-400)
[2025-01-13 14:09] LABS: INR 1.8 (0.9-1.3); Prothrombin Time 20.0 SECONDS (9.4-12.5)
[2025-01-13 15:57] LABS: Ferritin 389 ng/mL (18-464)
[2025-01-13 20:40] LABS: HEMOLYSIS 33 (0-50); Total Iron Binding Capacity 178 ug/dL (261-462); Transferrin 129 mg/dL (206-381)
[2025-01-13 21:03] LABS: Iron 99 ug/dL (49-181); Percent Iron Saturation 56 % (20-50)
== END ==
PROVIDERS: PCP Family Medicine; Referring Provider Nurse Practitioner Family; Visit Provider Nurse Practitioner Family
DX: D64.9 Anemia, unspecified (principal); K70.30 Alcoholic cirrhosis of liver without ascites
CPT/HCPCS: 36415; 82728; 83540; 83550; 85025; 85610